=== PATIENT | male | born 1950 | race Caucasian/White ===

== ENCOUNTER → 2016-08-25 | Outpatient (CLI) | payer MEDICARE, MEDICAID ==
[~2016-08-25] MED LIST: /ADVA50050 INH; /MOXI40TA PO; OXYGEN; PRED10TA2 PO; PRED5TAB PO; SPIRIVA INH; VENTAER IN
--- NOTE | 2016-08-25 15:49 | REP ---
LOW DOSE HELICAL SCREENING LUNG CT: Low dose helical screening lung CT performed in the axial plane and compared to prior studies, most recent of which is 03/26/2015 as well as other prior exams dating back to 02/12/2012. There is diffuse interstitial fibrotic change which appears relatively stable. There are stable scattered nodular opacities. A nodular opacity in the superior segment of the right lower lobe measures 4 mm, another in the region of the right middle lobe measures 7 mm and another just inferior to that measures 4 mm, all unchanged. Two stable 8 mm nodular opacities in the left lower lobe are again visualized. No new nodules are seen. Heart is normal in size. No gross mediastinal abnormality is seen. IMPRESSION: Category [address] Bilateral stable nodular opacities. No new finding. Findings have remained stable since at least 02/06/2014. Signed by Elliott Gates MD 08/25/2016 04:42 P
== END ==
LOC: M RAD 14:04
PROVIDERS: ATTEND Internal Medicine Pulmonary Disease
DX: Z12.2 Encounter for screening for malignant neoplasm of respiratory organs (principal); J43.2 Centrilobular emphysema; R91.8 Other nonspecific abnormal finding of lung field; Z87.891 Personal history of nicotine dependence

== ENCOUNTER → 2017-10-26 | Outpatient (CLI) | payer OTHER, MEDICAID, MEDICARE | LOC: M RAD 11:19 | DX: Z12.2 Encounter for screening for malignant neoplasm of respiratory organs (principal); Z87.891 Personal history of nicotine dependence; R91.8 Other nonspecific abnormal finding of lung field; J43.9 Emphysema, unspecified | CPT/HCPCS: G0297 ==

== ENCOUNTER 2019-05-07 22:41 | Inpatient (IN) | payer MEDICARE, OTHER ==
[~2019-05-07] VITALS: Ht 165.1 cm; Wt 46.1 kg
[~2019-05-07 22:41] MED LIST changes: -/ADVA50050 INH; -/MOXI40TA PO; +ADVA1AER2 INH; +AVEL1TAB2 PO
[2019-05-07] MEDS ORDERED: GABA-843 PO (22:50)
[2019-05-07] MEDS ORDERED: ALEN10TA21 PO (22:50)
[2019-05-07] MEDS: IPRATROPIUM 0.5MG/ALBUTEROL 2.5MG INH SOL UD 3ML (DUONEB)(J7620) NEB PRN ×3 (22:57→23:12)
[2019-05-07 23:12] LABS: ABG HCO3 31.3 MEQ/L (22.0-26.0); ABG O2 SATURATION 98.6 % (95.0-99.0); ABG PARTIAL PRESSURE O2 146.6 mmHg (75.0-100.0); ABG STANDARD HCO3 25.4 MEQ/L (22.0-26.0); ABG TOTAL CO2 33.7 MEQ/L (23.0-31.0)
[2019-05-07 23:15] LABS: ABG pH (ARTERIAL) 7.227 UNITS (7.350-7.450)
[2019-05-07 23:16] LABS: BASO # 0.2 10^3/uL (0.0-0.2); BASO % 0.7 % (0.0-1.0); EOS % 0.1 % (0.0-3.0); HEMATOCRIT 49.6 % (42.0-52.0); HEMOGLOBIN 15.3 g/dl (13.5-17.5); LYMPH # 1.2 10^3/uL (1.5-5.0); LYMPH % 4.5 % (24.0-44.0); MEAN CORPUSCULAR HEMOGLOBIN 29.7 pg (27.0-33.0); MEAN CORPUSCULAR HGB CONC 30.8 g/dl (32.0-36.5); MEAN CORPUSCULAR VOLUME 96.1 fl (80.0-96.0); MONO # 0.8 10^3/uL (0.0-0.8); MONO % 3.1 % (0.0-5.0); PLATELET COUNT, AUTOMATED 450 10^3/uL (150-450); RED BLOOD COUNT 5.16 10^6/uL (4.30-6.10); WHITE BLOOD COUNT 26.3 10^3/uL (4.0-10.0)
[2019-05-07] MEDS ORDERED: VENTAER INH (23:38)
[2019-05-07] MEDS ORDERED: INCR1INH INH (23:41)
[2019-05-07] MEDS ORDERED: SYMB16INH INH (23:41)
[2019-05-08] VITALS (17 sets, daily range): BP systolic 90–173; BP diastolic 52–89; O2SAT 100
[2019-05-08 00:02] LABS: BLOOD UREA NITROGEN 17 MG/DL (7-18); CALCIUM LEVEL 9.3 MG/DL (8.8-10.2); CARBON DIOXIDE LEVEL 35 MEQ/L (21-32); CHLORIDE LEVEL 102 MEQ/L (98-107); CK-MB VALUE MASS 7.3 NG/ML (<3.6); CPK CREATINE PHOSPHOKINASE 246 U/L (39-308); CREATININE FOR GFR 1.22 MG/DL (0.70-1.30); GLOMERULAR FILTRATION RATE > 60.0 (>49); GLUCOSE, FASTING 163 MG/DL (70-100); MB/CK RELATIVE INDEX 2.97 (< OR =4); NT-PRO BNP 87 PG/ML (<125); POTASSIUM SERUM 5.1 MEQ/L (3.5-5.1); SODIUM LEVEL 142 MEQ/L (136-145); TROPONIN I 0.02 NG/ML (< 0.10)
--- NOTE | 2019-05-08 00:10 | REPVR ---
PROCEDURE INFORMATION: Exam: CT Chest Without Contrast Exam date and time: 05/07/2019 11:47 PM Age: 68 years old Clinical history: Condition or disease; Lung condition and disease; Pneumothorax; Additional info: Left ptx TECHNIQUE: Imaging protocol: Computed tomography of the chest without contrast. 3D rendering: MIP reconstructed images were created and reviewed. Radiation optimization: All CT scans at this facility use at least one of these dose optimization techniques: automated exposure control; mA and/or kV adjustment per patient size (includes targeted exams where dose is matched to clinical indication); or iterative reconstruction. COMPARISON: CR PORTABLE CHEST X-RAY 05/07/2019 10:51 PM FINDINGS: Moderate left pneumothorax is present occupying perhaps 50% of left hemithorax volume, without significant mediastinal shift. No pleural fluid. Underlying diffuse severe emphysema. Pattern is centrilobular. No mass, infiltrate or endobronchial process. No enlarged mediastinal lymph nodes and no dilatation of the thoracic aorta. No acute displaced fractures involving ribs, thoracic spine or shoulder girdle. Old, healed left rib fractures are present. IMPRESSION: Confirmation of a large left pneumothorax occupying perhaps 50% of left hemithorax volume without evidence of significant mediastinal shift. Severe underlying diffuse lung emphysema Electronically signed by: rCuz Jalloh On 05/08/2019 00:10:26 AM
[2019-05-08] MEDS ORDERED: LIDOCAINE 1% MDV 20ML VIAL As Ordered ONE (00:28)
[2019-05-08] MEDS ORDERED: AZITHROMYCIN INJ 500 MG, VIAL MATE ADAPTER 1 EACH in D5W 250 ML IV ONE (01:15)
[2019-05-08] MEDS ORDERED: NS 1,000 ML IV SCH (01:15)
[2019-05-08] MEDS: IPRATROPIUM 0.5MG/ALBUTEROL 2.5MG INH SOL UD 3ML (DUONEB)(J7620) NEB SCH ×8 (01:20→19:46)
[2019-05-08] MEDS ORDERED: TIOT18INH INH (02:32)
[2019-05-08] MEDS: KETOROLAC 30 MG/ML VIAL (J1885) IV PRN ×2 (03:12→13:14)
[2019-05-08] MEDS: NS 1,000 ML IV SCH ×3 (03:12→18:48)
[2019-05-08] MEDS: methylPREDNISolone INJ 125 MG/2 ML VIAL (J2930) IV SCH ×4 (03:12→20:12)
[2019-05-08 03:16] LABS: ABG BASE EXCESS 0.4 (-2.0-2.0); ABG HCO3 26.7 MEQ/L (22.0-26.0); ABG O2 SATURATION 99.2 % (95.0-99.0); ABG PARTIAL PRESSURE CO2 49.2 mmHg (35.0-45.0); ABG PARTIAL PRESSURE O2 159.5 mmHg (75.0-100.0); ABG STANDARD HCO3 24.9 MEQ/L (22.0-26.0); ABG TOTAL CO2 28.2 MEQ/L (23.0-31.0); ABG pH (ARTERIAL) 7.352 UNITS (7.350-7.450)
--- NOTE | 2019-05-08 06:39 | RO ---
DATE OF PROCEDURE: 05/08/2019 Chest tube insertion note INDICATION: Pneumothorax. PREPROCEDURE DIAGNOSIS: Pneumothorax on the left. POSTPROCEDURE DIAGNOSIS: Pneumothorax on the left. ATTENDING PHYSICIAN: Dr. Francois CONSENT: Consent was obtained from the patient. Risk and benefits were discussed. A time out was performed prior to procedure, verifying correct patient, procedure site, positioning and equipment. The patient was sitting bed in the stretcher with the left side of his chest exposed. Full sterile technique was maintained throughout procedure including sterile glove, cap, mask with protective eyewear and sterile gown. The patient's left chest was prepped using chlorhexidine scrub and draped with a sterile fenestrated drape. 1% lidocaine was used to anesthetize the surrounding skin area. An introducer needle was placed into the chest wall just superior to the rib in the fifth intercostal space. There was air aspirated after placement of the introducer needle. A Guidewire was then threaded through the introducer needle. The introducer needle was removed over the Guidewire and a scalpel was used to make an incision at the skin surface and the dilator was then exchanged over the Guidewire. After appropriate dilation was achieved, the chest tube with the trocar was inserted into the chest. The chest tube was exchanged over the Guidewire and the Guidewire and trocar was removed. The chest tube was then connected to the Pleur-evac with notable air bubbling in the Pleur-evac and tidaling. The chest tube was sutured securely to the skin and Vaseline gauze was placed around this chest tube site and a sterile dressing was applied to it. At the time of procedure completion, the patient was hemodynamically stable. Estimated blood loss was less than 1 mL. Postprocedure chest x-ray was obtained.
--- NOTE | 2019-05-08 06:47 | HPE ---
DATE OF ADMISSION: 05/08/2019 CHIEF COMPLAINT: Hypercapnic respiratory failure pneumothorax. HISTORY OF PRESENT ILLNESS: Mr. 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 The patient was noted to be significantly tachypneic and using accessory muscles, was unable to speak in even short phrases. History was somewhat limited as the patient was in respiratory distress and unable to speak even in short phrases. He has had some increasing shortness of breath for the past few days as well as increased cough and some sputum production. He denied any chest pain. He denied any fevers or chills and no sick contacts. He was placed on BiPAP on transfer to the ED and was treated with steroids and nebulizer treatment by EMS. In the ED, the patient was given another dose of nebulizer treatment and was continued on BiPAP. He was tachycardic as well on presentation. He had imaging done initially with a chest x-ray, which showed emphysematous changes and hyperinflation as well as a pneumothorax on the left side more so in the base of the lung. He therefore had a CT chest done, which also confirmed the presence of a large left-sided pneumothorax. The patient was on in place on a non-rebreather pending my arrival to the ED given pneumothorax. On my arrival to the ED, the patient was significantly tachypneic with a respiratory rate in the 30s. He was using accessory muscles for respiration and abdominal breathing as well as tachycardic to heart rate of 140 and hypertensive with blood pressures in the one 80s. A the left-sided chest tube was placed then for his pneumothorax with normal air and bubbling after placement. Immediately after placement, his heart rate did improve and his tachypnea and respiratory distress also improved. Please see procedure note for further details. PAST MEDICAL/SURGICAL HISTORY: 1. COPD/emphysema GOLD stage IV. 2. Chronic back pain. 3. History of alcohol use. 4. History of tobacco dependency, quit in 2013. 5. Cataract surgery. 6. Prior history of lumbar surgery. 7. Left inguinal hernia repair. 8. History of pulmonary nodules all stable after surveillance. HOME MEDICATIONS INCLUDE: - Incruse - Symbicort - Ventolin DRUG ALLERGIES: No known drug allergies. SOCIAL HISTORY: Former smoker, history of 46-pack years, quit in 2014. FAMILY HISTORY: Father with history of heart disease. No family history of lung disease. PHYSICAL EXAMINATION: VITALS: Temperature 98.2, pulse 141, respiratory rate 30s, blood pressure 181/84, O2 sat 95% on non-rebreather. GENERAL: The patient is a cachectic male who is lying in the stretcher in moderate respiratory distress. Is using accessory muscles of respiration and is unable to speak in short phrases. HEENT: His he has dry mucous membranes noted, with some poor oral hygiene. There are dentures in place. NECK: Trachea is midline. There is no jugular venous distention (JVD) and no palpable adenopathy. CARDIAC: Distant heart sounds with a tachycardiac rate and a regular rhythm with normal S1, S2 and unable to appreciate murmurs. PULMONARY: Severely diminished breath sounds, more on the left than on the right with prolonged expiration and decreased air entry bilaterally. ABDOMEN: Abdomen is soft, nontender, nondistended. No palpable mass. EXTREMITIES: There is no lower extremity edema bilaterally. There is evidence of muscle wasting and pulmonary cachexia. LABS: WBC 26.3, hemoglobin 15.3, platelets 450. Chemistry: Sodium is 142, potassium 5.1, chloride is 102, bicarb 35, BUN 17, creatinine is 1.22, glucose is 163, troponin was negative. BNP 87, TSH 1.440, lactic acid is 1.0. ABG on admission: pH of 7.227, pCO2 of 77, pO2 of 146.6. IMAGING: Chest x-ray on admission shows emphysematous changes and some hyperinflation. On the left base, there is a pneumothorax present. There are no focal opacities or effusions. The patient is somewhat rotated. CT chest: Previously known emphysema and is seen as well as previously seen lung nodules. There is a moderate pneumothorax on the left size occupying perhaps 50% of the left hemithorax with possible very slight mediastinal shift. There is no pleural effusion. There is no infiltrates or opacities noted. ASSESSMENT/PLAN: Mr. Singh is a 68-year-old male with a history of the GOLD stage IV COPD with severe emphysema on nasal cannula oxygen supplementation at night and with exertion who presents with increasing shortness of breath and respiratory distress. The patient's initial chest x-ray showed evidence of a moderate left pneumothorax and he was in significant respiratory distress as well as with acute on chronic hypercarbic respiratory failure likely secondary to his pneumothorax as well as an acute COPD exacerbation. 1. Left pneumothorax in the setting of severe emphysema: The patient had a chest tube placed by me emergently in the ED on the left side with immediate drainage of air. There is bubbling in the Pleur-Evac and tidaling as well. Postprocedure chest x-ray shows re-expansion of the lung. Will continue him with a chest tube to wall suction particularly as he is still on BiPAP with the potential of the positive pressure to contribute to persistence in his the pneumothorax and air leak. - Will get daily chest x-rays with the chest tube. - Pain control with Tylenol and Toradol as needed. 2. Acute COPD exacerbation with acute on chronic hypercarbic respiratory failure. - The patient was placed on BiPAP and his settings were adjusted in the ED to 10/5 with a respiratory rate of 12 and a 30% FiO2. Will followup repeat ABG after 1 hour on BiPAP. His respiratory distress appears to be improving after the chest tube placement and on BiPAP. - Continue with DuoNebs every 4 hours and will start Solu-Medrol at 60 mg IV every 6h. - The patient was previously on Symbicort and Incruse for home inhalers which he will need to be restarted prior to his discharge. - Will continue with azithromycin for acute COPD exacerbation. His chest CT did not show any focal opacities or infiltrates to suggest pneumonia but will perform a respiratory viral panel. - The patient did have leukocytosis on admission and which may also be partially hemoconcentration. Will give him normal saline fluids and continue to monitor. His tachycardia may also be due to some mild dehydration. Deep venous thrombosis (DVT) prophylaxis: Lovenox CODE STATUS: The patient follows with Dr. Torres and our pulmonary office. She had seen him in June and they had discussed the goals of care extensively and the patient had filled out a medical orders for life-sustaining treatment (MOLST) in our office stating his preference for a DO NOT RESUSCITATE and DO NOT INTUBATE with a trial of BiPAP. He had stated during his office visit, that if possible he would get the DNR/DNI tattooed on his forehead. I confirmed with him today in the ED that he is a DNR and DNI for his code status. Total critical care time spent not including any procedures approximately 2 hours. AMANDA
--- NOTE | 2019-05-08 08:15 | REP ---
Portable chest x-ray: Single view, 01:13 a.m. film. History: Chest tube placement. Pneumothorax. Comparison study 05/07/2019 at 10:55 p.m.. Findings: A left pleural drainage catheter is noted in place. A left-sided pneumothorax has been evacuated. The lungs remain hyperinflated as before consistent with COPD. Oxygen delivery tubing and EKG electrodes are seen. No focal infiltrate is seen. Heart is not enlarged. Electronically Signed by Jhon Wilson MD 05/08/2019 08:06 A
[2019-05-08] MEDS: ENOXAPARIN 30 MG/0.3 ML SYR (J1650) SC SCH (08:33)
--- NOTE | 2019-05-08 08:34 | REP ---
Portable chest x-ray: Two views. 10:55 p.m. film. History: Dyspnea and cough. Comparison study is chest CT study from October 26, 2017. Findings: The patient is rotated to the right for the current exposure. Lungs are markedly hyperinflated consistent with COPD as before. There is a left-sided pneumothorax visible along the left superior lateral and lower lateral chest wall, probably 25-30%. There appears to be shift of the mediastinum to the right although the patient is rotated somewhat and this is difficult to assess. No infiltrate is seen. The right lung is clear. The heart is not enlarged. There are healed or healing rib fractures noted on the left. There is diffuse osteopenia. Impression: 25-30% left-sided pneumothorax. COPD. Possible shift of the mediastinum to the right. Electronically Signed by Jhon Wilson MD 05/08/2019 08:46 A
[2019-05-08 09:20] LABS: BASO % 0.1 % (0.0-1.0); HEMATOCRIT 40.4 % (42.0-52.0); LYMPH # 0.3 10^3/uL (1.5-5.0); LYMPH % 1.8 % (24.0-44.0); MEAN CORPUSCULAR HEMOGLOBIN 29.8 pg (27.0-33.0); MEAN CORPUSCULAR HGB CONC 31.7 g/dl (32.0-36.5); MONO # 0.1 10^3/uL (0.0-0.8); MONO % 0.5 % (0.0-5.0); NEUTROPHILS # 16.4 10^3/uL (1.5-8.5); WHITE BLOOD COUNT 16.9 10^3/uL (4.0-10.0)
[2019-05-08 09:35] LABS: HEMOGLOBIN 12.8 g/dl (13.5-17.5)
[2019-05-08 09:36] LABS: PLATELET COUNT, AUTOMATED 264 10^3/uL (150-450)
[2019-05-08 09:51] LABS: BLOOD UREA NITROGEN 26 MG/DL (7-18); CALCIUM LEVEL 8.9 MG/DL (8.8-10.2); CARBON DIOXIDE LEVEL 28 MEQ/L (21-32); CHLORIDE LEVEL 107 MEQ/L (98-107); CREATININE FOR GFR 1.18 MG/DL (0.70-1.30); GLOMERULAR FILTRATION RATE > 60.0 (>49); GLUCOSE, FASTING 147 MG/DL (70-100); POTASSIUM SERUM 4.9 MEQ/L (3.5-5.1); SODIUM LEVEL 141 MEQ/L (136-145)
[2019-05-08] MEDS: AZITHROMYCIN INJ 500 MG, VIAL MATE ADAPTER 1 EACH in D5W 250 ML IV SCH (20:12)
[2019-05-09] VITALS (11 sets, daily range): BP systolic 135–181; BP diastolic 65–97; O2SAT 100
[2019-05-09] MEDS: IPRATROPIUM 0.5MG/ALBUTEROL 2.5MG INH SOL UD 3ML (DUONEB)(J7620) NEB SCH ×7 (00:14→23:36)
[2019-05-09] MEDS: methylPREDNISolone INJ 125 MG/2 ML VIAL (J2930) IV SCH ×2 (02:33→08:32)
[2019-05-09 05:40] LABS: HEMATOCRIT 37.9 % (42.0-52.0); HEMOGLOBIN 12.1 g/dl (13.5-17.5); MEAN CORPUSCULAR HEMOGLOBIN 29.8 pg (27.0-33.0); MEAN CORPUSCULAR HGB CONC 31.9 g/dl (32.0-36.5); MEAN CORPUSCULAR VOLUME 93.3 fl (80.0-96.0); PLATELET COUNT, AUTOMATED 265 10^3/uL (150-450); RED BLOOD COUNT 4.06 10^6/uL (4.30-6.10); WHITE BLOOD COUNT 19.9 10^3/uL (4.0-10.0)
[2019-05-09 05:51] LABS: ABG BASE EXCESS 1.8 (-2.0-2.0); ABG HCO3 26.5 MEQ/L (22.0-26.0); ABG O2 SATURATION 97.2 % (95.0-99.0); ABG PARTIAL PRESSURE O2 91.1 mmHg (75.0-100.0); ABG TOTAL CO2 27.8 MEQ/L (23.0-31.0); ABG pH (ARTERIAL) 7.418 UNITS (7.350-7.450)
[2019-05-09 06:12] LABS: BLOOD UREA NITROGEN 23 MG/DL (7-18); CALCIUM LEVEL 8.4 MG/DL (8.8-10.2); CARBON DIOXIDE LEVEL 30 MEQ/L (21-32); CHLORIDE LEVEL 107 MEQ/L (98-107); GLOMERULAR FILTRATION RATE > 60.0 (>49); GLUCOSE, FASTING 119 MG/DL (70-100); MAGNESIUM LEVEL 2.2 MG/DL (1.8-2.4); PHOSPHORUS LEVEL 1.9 MG/DL (2.5-4.9); POTASSIUM SERUM 4.5 MEQ/L (3.5-5.1); SODIUM LEVEL 141 MEQ/L (136-145)
[2019-05-09] MEDS: KETOROLAC 30 MG/ML VIAL (J1885) IV PRN ×2 (07:25→16:25)
--- NOTE | 2019-05-09 08:17 | REP ---
Portable chest x-ray: Single view. History: Chest tube. Comparison chest x-ray: May 08, 2019. Findings: A left pleural drainage catheter remains in place along the left lateral chest. There is a small amount of left apical pleural air visible today above the chest tube. Lungs are otherwise hyperinflated as before and clear. Electronically Signed by Jhon Wilson MD 05/09/2019 08:08 A
[2019-05-09] MEDS: ENOXAPARIN 30 MG/0.3 ML SYR (J1650) SC SCH (08:33)
--- NOTE | 2019-05-09 10:37 | CCN ---
DATE: 05/09/2019 The patient was seen, examined this morning during bedside rounds. The patient reports his breathing has improved. Yesterday in the late morning, he was able to be weaned off of BiPAP to nasal cannula oxygen supplementation. He had done well for most of the day, except late overnight, he started having increasing shortness of breath, tachypnea and tachycardia and was placed back on BiPAP until this morning when he was weaned off again to nasal cannula. He does continue to have some cough and reports some thick mucus that he is having difficulty expectorating. He denies any chest pain. Has not had any fevers or chills. PHYSICAL EXAMINATION: Temperature 99.1, pulse 85, respirations 22, blood pressure 135/65, O2 sat 97% on 1 liter nasal cannula. Ins 250, outs 945, net negative 695 mL GENERAL: The patient is a cachectic male who is lying in the bed and is using some mild accessory muscles for respiration with pursed-lip breathing but is able to speak in more complete sentences today. HEENT: Normocephalic, atraumatic. Moist mucous membranes. He has dentures in place and poor oral hygiene. NECK: Trachea is midline. There is no jugular venous distention (JVD) or palpable adenopathy. CARDIAC: Distant heart sounds regular rate and rhythm. Normal S1, S2. Unable to appreciate murmurs. PULMONARY: Diminished breath sounds bilaterally with prolonged expiration but no significant wheezing, rales or rhonchi. ABDOMEN: Abdomen is soft, nontender, nondistended. No palpable mass. EXTREMITIES: There is no lower extremity edema bilaterally. There is some evidence of muscle wasting and pulmonary cachexia. LABS: WBC 19.9, hemoglobin. 0.1, platelets of 265. Chemistry: Sodium is 1.1, potassium 4.5, chloride is 107, bicarb 30, BUN 23, creatinine 0.90, glucose is 119, phos 1.9, magnesium 2.2. ABG: pH of 7.418, pCO2 of 42, pO2 of 91.1. IMAGING: Chest x-ray this morning shows a tiny residual apical pneumothorax on the left. The left sided chest tube is in position coursing laterally along the lung. There is small amount of subcutaneous emphysema noted in the chest wall on the left, which is improved from yesterday. ASSESSMENT/PLAN: Mr. Francisco is a 68-year-old male with a past medical history of GOLD stage IV Chronic obstructive pulmonary disease (COPD) with severe emphysema on nasal cannula oxygen supplementation at night with exertion who presented with increased shortness of breath and respiratory distress. The patient was found have moderate left pneumothorax as well as acute on chronic hypercarbic respiratory failure likely secondary to his pneumothorax as well as from an acute COPD exacerbation. 1. Left pneumothorax in setting of emphysema and likely some coughing. - The patient's chest x-ray this morning does show some very small residual left apical pneumothorax. On the Pleur-Evac he does have a few bubbles noted in the well although this has slowed down from previous. - Continue chest tube to wall suction at negative 30 cm H2O. - Continue daily chest x-rays with the chest tube. - Continue pain control with Tylenol and Toradol as needed. - Will attempt to keep patient off of BiPAP to help with his air leak and persistent pneumothorax. 2. Acute COPD exacerbation with acute on chronic hypercarbic respiratory failure. - The patient's ABG this morning shows improvement. He was off of BiPAP for most of the day although overnight he did have increased respiratory distress and tachypnea and was placed back on BiPAP. - Will attempt to keep patient off BiPAP given his a persistent pneumothorax. He does have BiPAP at the bedside with settings of 10 over 5,12 and 30% FiO2. - Continue with DuoNebs every 4 hours. - Continue Solu-Medrol will taper to 40 mg every 8 hours. - Will start Mucinex to help with his mucus clearance. - Continue azithromycin for acute COPD exacerbation. His CT chest did not show any focal opacities or infiltrates to suggest pneumonia. His respiratory viral panel was negative. - Will discontinue (DC) IV fluids as he is tolerating oral. 3. Urinary retention - patient was complaining of some urinary retention yesterday and a Holley was placed. Will get the patient out-of-bed to chair and will DC Holley based on our protocol. - Will continue to monitor his ins and outs. - Will replete electrolytes as needed. Deep venous thrombosis (DVT) prophylaxis: Lovenox. Code Status: DO NOT RESUSCITATE /DO NOT INTUBATE. Total critical care time spent not including procedures, approximately 40 minutes. MTDD
[2019-05-09] MEDS: guaiFENesin ER 600 MG TAB PO SCH ×2 (11:00→20:49)
[2019-05-09] MEDS: NEUTRA-PHOS 1.5 GM PACKET PO SCH ×2 (11:00→20:49)
[2019-05-09] MEDS: methylPREDNISolone INJ 40 MG/1 ML VIAL (J2920) IV SCH (16:25)
[2019-05-09] MEDS: AZITHROMYCIN INJ 500 MG, VIAL MATE ADAPTER 1 EACH in D5W 250 ML IV SCH (20:50)
--- NOTE | 2019-05-09 21:51 | ECGEPIP ---
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
[2019-05-10] VITALS: BP 138/79
[2019-05-10] MEDS: methylPREDNISolone INJ 40 MG/1 ML VIAL (J2920) IV SCH ×3 (00:15→17:31)
[2019-05-10 04:30] VITALS: BP 174/93
[2019-05-10] MEDS: IPRATROPIUM 0.5MG/ALBUTEROL 2.5MG INH SOL UD 3ML (DUONEB)(J7620) NEB SCH ×6 (04:35→23:32)
[2019-05-10 07:40] LABS: HEMATOCRIT 42.4 % (42.0-52.0); HEMOGLOBIN 13.7 g/dl (13.5-17.5); MEAN CORPUSCULAR HEMOGLOBIN 29.8 pg (27.0-33.0); MEAN CORPUSCULAR HGB CONC 32.3 g/dl (32.0-36.5); MEAN CORPUSCULAR VOLUME 92.2 fl (80.0-96.0); PLATELET COUNT, AUTOMATED 284 10^3/uL (150-450); WHITE BLOOD COUNT 22.8 10^3/uL (4.0-10.0)
[2019-05-10 08:00] VITALS: BP 163/81
[2019-05-10 08:00] LABS: BLOOD UREA NITROGEN 22 MG/DL (7-18); CALCIUM LEVEL 8.7 MG/DL (8.8-10.2); CARBON DIOXIDE LEVEL 31 MEQ/L (21-32); CHLORIDE LEVEL 103 MEQ/L (98-107); GLOMERULAR FILTRATION RATE > 60.0 (>49); GLUCOSE, FASTING 121 MG/DL (70-100); MAGNESIUM LEVEL 2.3 MG/DL (1.8-2.4); SODIUM LEVEL 138 MEQ/L (136-145)
--- NOTE | 2019-05-10 08:03 | REP ---
Portable chest x-ray: Single view. History: Chest tube. Comparison chest x-ray: May 09, 2019. Findings: The lungs remain hyperinflated. Left chest tube remains in place. There is a small left apical pleural air collection unchanged. Minimal plate-like atelectasis is suspected in the right base. Lung park are otherwise clear. Heart is not enlarged. Electronically Signed by Jhon Wilson MD 05/10/2019 07:54 A
--- NOTE | 2019-05-10 09:09 | IPN ---
DATE: 05/10/2019 He patient was seen and examined this morning during bedside rounds. Overnight, the patient was off of BiPap except for two brief episodes lasting a few minutes when he desatted with getting out of bed and with positioning. The patient also had become tachycardiac and mildly tachypneic during these episodes. He was only on BiPap for a few minutes before coming off to his nasal cannula. His heart rate did take some time to recover. This morning, he reports his breathing is mostly unchanged. He does still have some shortness of breath particularly with exertion. He denies any chest pain. He does continue to have some cough with thick mucus which he was able to bring some of it up overnight. He has not had any fevers or chills. PHYSICAL EXAMINATION: Temperature is 97.9, pulse 83, respirations 22, blood pressure 174/93, O2 sat 97% on 1 liter nasal cannula. Ins 945 mL and out approximately 2 liters, net negative 1.1 liters. General: The patient is a cachectic male who is lying in bed and is using some accessory muscles for respiration with pursed-lip breathing, but is able to speak in short sentences. HEENT: He is normocephalic, atraumatic. There is moist mucous membranes. He has dentures in place and poor oral hygiene. Neck: Trachea is midline. There is no jugular venous distention (JVD) or palpable adenopathy. Cardiac: Distant heart sounds, regular rate and rhythm. Normal S1 and S2. Unable appreciate murmurs. Pulmonary: Diminished breath sounds bilaterally with prolonged expiration and faint wheeze with forceful exhalation. No significant rales or rhonchi. The abdomen is soft, nontender, nondistended. There is no palpable mass. Extremities: There is no lower extremity noted bilaterally. There is evidence of muscle wasting and pulmonary cachexia. LABORATORY DATA: WBC 22.8, hemoglobin 13.7, platelets 284. Chemistry: Sodium is 138, potassium 4.0, chloride is 103, bicarbonate 31, BUN is 22, creatinine is 0.9, glucose is 121. IMAGING: Chest x-ray this morning shows continued residual small apical pneumothorax on the left. The left sided chest tube is in position. There is some mild atelectasis in the right base. ASSESSMENT: Mr. Singh is a 68-year-old male with a history of Gold stage IV COPD with severe emphysema on nasal cannula oxygen supplementation nocturnally and with exertion who presented with increased shortness breath and respiratory distress. The patient was found have moderate left pneumothorax as well as acute hypercarbic respiratory failure likely secondary to his pneumothorax as well as from an acute COPD exacerbation. 1. Left pneumothorax in the setting of emphysema and COPD exacerbation. - The patient continues to have some bubbling noted on the Pleur-Evac and his chest x-ray continues to show a small residual left apical pneumothorax. - Will continue chest tube to wall suction at negative 30 cm. - Continue daily chest x-rays with the chest tube. - Continue pain control with Tylenol and Toradol as needed - Will continue to monitor his pneumothorax and air leak, but suspect he will have a long time healing given his severe underlying lung disease. 2. Acute COPD exacerbation with acute hypercarbic respiratory failure. - The patient was off of BiPap overnight except for two brief episodes where he desatted with positioning and was placed on BiPap for a few minutes. Will therefore discontinue his BiPap and continue the patient with nasal cannula oxygen supplementation and would have parameters to increase the nasal cannula oxygen if he desats with exertion, which he most likely will. - Continue with DuoNebs q. four. - Continue Solu-Medrol 40 mg q.8 hours. - Continue Mucinex and pulmonary toilet. - Continue azithromycin to complete a 5-day course for acute COPD exacerbation. His leukocytosis is likely reactive with the steroids as he has continued to remain afebrile. - Will continue to advance his diet and start Ensure given his pulmonary cachexia. 3. Urinary attention. - likely BPH given history he reports of urinary stream hesitancy and difficulty with urination. will attempt to DC clement for voiding trial today. Monitor for retention again. - Continue to monitor electrolytes and replete as needed. DEEP VEIN THROMBOSIS (DV) PROPHYLAXIS: Lovenox. CODE STATUS: DO NOT RESUSCITATE/DO NOT INTUBATE (DNR/DNI). Will downgrade the patient to progressive care unit (PCU). AMANDA
[2019-05-10] MEDS: NEUTRA-PHOS 1.5 GM PACKET PO SCH ×2 (09:27→20:23)
[2019-05-10] MEDS: ENOXAPARIN 30 MG/0.3 ML SYR (J1650) SC SCH (09:27)
[2019-05-10] MEDS: guaiFENesin ER 600 MG TAB PO SCH ×2 (09:27→20:22)
[2019-05-10] MEDS: KETOROLAC 30 MG/ML VIAL (J1885) IV PRN (11:16)
[2019-05-10 12:00] VITALS: BP 163/91
[2019-05-10 16:00] VITALS: BP 159/87
--- NOTE | 2019-05-10 17:51 | IPNPDOC ---
Subjective Date Seen The patient was seen on 05/10/19. Subjective Chief Complaint/HPI Complains of SOB and which is chronic and not any worse than usual at present. It is better compared to when he was admitted. Has chest tube in place with ongoing air leak. Had acute urinary retention in hospital so has a clement will try for a trial of void today. Objective Physical Examination General Exam: Positive: Alert, Cooperative, Moderate Distress, Other (cachextic, has conversational dyspnea.) Eye Exam: Positive: PERRLA, Conjunctiva & lids normal, EOMI; Negative: Sclera icteric Neck Exam: Positive: Supple; Negative: JVD, thyromegaly Chest Exam: Positive: Diminished, Other (barell chest) Heart Exam: Positive: Tachycardic, Regular Rhythm, Normal S1, Normal S2 Telemetry: Positive: No significant arrhythmia Abdomen Exam: Positive: Normal bowel sounds, Soft; Negative: Tenderness, Hepatospenomegaly Extremity Exam: Negative: Clubbing, Cyanosis, Edema Psych Exam: Positive: Mental status NL, Mood NL, Oriented x 3 Assessment /Plan Assessment 68-year-old male with a history of 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 CT chest showed previously known emphysema and is seen as well as previously seen lung nodules. There was a moderate pneumothorax on the left size occupying perhaps 50% of the left hemithorax with possible very slight media stinal shift. Pateint was also in acute respiratory failure with hypercarbia with copd exacerbation. pateint had a Chest tube placed urgently with relief of the pneumothorax on 05/08. However till continues to leak air. His Acute repiratory failure has resolved. However still remains extremely SOb with minimal exertion with tachycardia and desaturations needing prolonged period of increased oxygen flow to recover. As per pulmonary that probably is his baseline with his advanced COPD. Left Pneumothorax s/p chest tube placement on 05/08 with persistent air leak As per pulmonary COPD exacerbation COPD/emphysema GOLD stage IV. continue duonebs and budesonide and methyl pred and azithromycin S/P Acute respiratory failure with hypercarbia due to pneumothorax and COPD exacerbation now improved. Acute urinary retention in hospital has clement will give trial of void Chronic back pain/Prior history of lumbar surgery will restart gabapentin at lower dose due to recent acute hypercarbia. History of alcohol use. history of tobacco dependency, quit in 2013. Severe malnutrition /pulmonary cachexia with severe muscle wasting and BMI of 17.6 Plan/VTE VTE Prophylaxis Ordered?: Yes VS, I&O, 24H, Fishbone Vital Signs/I&O Vital Signs Date Time Temp Pulse Resp B/P (MAP) Pulse Ox O2 Delivery O2 Flow Rate FiO2 05/10/19 16:00 3.0 05/10/19 12:00 97.9 110 22 163/91 (115) 99 Nasal Cannula 05/09/19 02:00 30 I&O- Last 24 Hours up to 6 AM 05/10/19 06:00 Intake Total 755 ml Output Total 1570 ml Balance -815 ml Laboratory Data 24H LABS Laboratory Tests 2 05/10/19 07:28: Nucleated Red Blood Cells % (auto) 0.0, Anion Gap 4L, Glomerular Filtration Rate > 60.0, Calcium Level 8.7L, Magnesium Level 2.3 CBC/BMP Laboratory Tests 05/10/19 07:28 Microbiology Microbiology 05/08/19 Respiratory Virus Panel (PCR) ([facility]) - Final, Complete 05/07/19 Blood Culture - Preliminary, Resulted No Growth after 48 hours. All Specime... 05/07/19 Blood Culture - Preliminary, Resulted No Growth after 48 hours. All Specime... LIDIA AGUIRRE MD May 10, 2019 17:51
[2019-05-10] MEDS: BUDESONIDE 0.5 MG/2 ML INHALATION SUSPENSION INH SCH (19:55)
[2019-05-10 20:00] VITALS: BP 183/86
[2019-05-10] MEDS: amLODIPine 5 MG TAB PO SCH (20:22)
[2019-05-10] MEDS: GABAPENTIN 100 MG CAP PO SCH (20:22)
[2019-05-10] MEDS: AZITHROMYCIN 250 MG TAB PO SCH (20:23)
[2019-05-10] MEDS ORDERED: GABAPENTIN 300 MG CAP PO SCH (21:00)
[2019-05-11] VITALS: BP 120/67
[2019-05-11] MEDS: methylPREDNISolone INJ 40 MG/1 ML VIAL (J2920) IV SCH ×3 (01:20→20:43)
[2019-05-11] MEDS: IPRATROPIUM 0.5MG/ALBUTEROL 2.5MG INH SOL UD 3ML (DUONEB)(J7620) NEB SCH ×5 (04:00→20:00)
[2019-05-11 06:01] LABS: BLOOD UREA NITROGEN 32 MG/DL (7-18); CALCIUM LEVEL 8.2 MG/DL (8.8-10.2); CARBON DIOXIDE LEVEL 35 MEQ/L (21-32); CHLORIDE LEVEL 103 MEQ/L (98-107); CREATININE FOR GFR 0.74 MG/DL (0.70-1.30); GLOMERULAR FILTRATION RATE > 60.0 (>49); GLUCOSE, FASTING 108 MG/DL (70-100); HEMATOCRIT 43.7 % (42.0-52.0); HEMOGLOBIN 14.4 g/dl (13.5-17.5); MEAN CORPUSCULAR HEMOGLOBIN 30.3 pg (27.0-33.0); MEAN CORPUSCULAR VOLUME 91.8 fl (80.0-96.0); PLATELET COUNT, AUTOMATED 279 10^3/uL (150-450); POTASSIUM SERUM 4.3 MEQ/L (3.5-5.1); RED BLOOD COUNT 4.76 10^6/uL (4.30-6.10); SODIUM LEVEL 139 MEQ/L (136-145); WHITE BLOOD COUNT 25.1 10^3/uL (4.0-10.0)
--- NOTE | 2019-05-11 08:00 | REP ---
Chest x-ray: Single view. History: Chest tube. Comparison study: May 10, 2019. Findings: The lungs are hyperinflated. The patient is somewhat rotated to the right. Left pleural drainage catheter is again seen in place. There is a tiny sliver of left apical pleural air decreased from yesterday's radiograph. Hyperinflation is again noted. Increased interstitial markings are seen at the right lung base. Electronically Signed by Jhon Wilson MD 05/11/2019 07:51 A
[2019-05-11 08:07] VITALS: BP 165/86
[2019-05-11] MEDS: BUDESONIDE 0.5 MG/2 ML INHALATION SUSPENSION INH SCH ×2 (08:27→20:00)
[2019-05-11] MEDS: guaiFENesin ER 600 MG TAB PO SCH ×2 (09:23→20:43)
[2019-05-11] MEDS: GABAPENTIN 100 MG CAP PO SCH ×3 (09:23→20:43)
[2019-05-11] MEDS: ENOXAPARIN 30 MG/0.3 ML SYR (J1650) SC SCH (09:23)
--- NOTE | 2019-05-11 10:46 | REP ---
CT CHEST WITHOUT IV CONTRAST: CT chest performed without IV contrast. Sagittal and coronal reconstruction images are performed. Comparison is made with a prior study 05/07/2019. Left pleural catheter is seen. There is a very small residual left apical pneumothorax. Subcentimeter nodular density in the left upper lobe on image 28 is of doubtful significance. Subcentimeter nodular density peripherally in the left lower lobe on image [address] of 10/26/2017. There is diffuse emphysema and scattered interstitial fibrosis. Secretions are seen in the right bronchus intermedius extending peripherally into right lower lobe bronchus. Patchy peripheral infiltrates are seen in the inferior right lower lobe. There are mild interstitial infiltrates peripherally in the right mid and lower lobes, with some mild patchy infiltrate also seen in the right middle lobe. No gross adenopathy is seen in the axillary or mediastinal regions. There is no thoracic aortic aneurysm with mild scattered atherosclerotic calcification. The heart is not enlarged. There are degenerative changes of the spine. IMPRESSION: Very small residual left apical pneumothorax, with left pleural drainage catheter in place. Right middle and lower lobe infiltrates. Electronically Signed by Elliott Gates MD 05/11/2019 01:41 P
--- NOTE | 2019-05-11 11:41 | IPNPDOC ---
Subjective Date Seen The patient was seen on 05/11/19. Subjective Chief Complaint/HPI says feels tired as he did not get any rest last night. His breathing remains unchanged. Still leaking few bubbles specially when he coughs. No fever or chills. Noted new CT chest. Objective Physical Examination General Exam: Positive: Alert, Cooperative, Moderate Distress, Other (cachextic, has conversational dyspnea.) Eye Exam: Positive: PERRLA, Conjunctiva & lids normal, EOMI; Negative: Sclera icteric Neck Exam: Positive: Supple; Negative: JVD, thyromegaly Chest Exam: Positive: Diminished, Other (barel chest, few scattered creackles. 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 CT chest showed previously known emphysema and is seen as well as previously seen lung nodules. There was a moderate pneumothorax on the left size occupying perhaps 50% of the left hemithorax with possible very slight mediastinal shift. Pateint was also in acute respiratory failure with hypercarbia with copd exacerbation. patient had a Chest tube placed urgently with relief of the pneumothorax on 05/08. However till continues to leak air. His Acute repiratory failure has resolved. However still remains extremely SOb with minimal exertion with tachycardia and desaturations needing prolonged period of increased oxygen flow to recover. As per pulmonary that probably is his baseline with his advanced COPD. Left Pneumothorax s/p chest tube placement on 05/08 with persistent air leak As per pulmonary CT noted with increased infiltrates on the right. COPD exacerbation COPD/emphysema GOLD stage IV. continue duonebs and budesonide and methyl pred and azithromycin bicarb up today , will get ABG for tomorrow if it goes up further. CT chest with increased infiltrate on the right. will discuss with pulmonary if antibiotics needs to be expanded. No fever or chills, WBC is elevated but patient is also on steroids. S/P Acute respiratory failure with hypercarbia due to pneumothorax and COPD exacerbation now improved. Acute urinary retention in hospital clement dced will continue to monitor for retension. Bladder scan prn. Chronic back pain/Prior history of lumbar surgery will restart gabapentin at lower dose due to recent acute hypercarbia. History of alcohol use. history of tobacco dependency, quit in 2013. Severe malnutrition /pulmonary cachexia with severe muscle wasting and BMI of 17.6 Plan/VTE VTE Prophylaxis Ordered?: Yes VS, I&O, 24H, Fishbone Vital Signs/I&O Vital Signs Date Time Temp Pulse Resp B/P (MAP) Pulse Ox O2 Delivery O2 Flow Rate FiO2 05/11/19 08:07 97.5 79 22 165/86 (112) 96 Nasal Cannula 3.0 05/09/19 02:00 30 I&O- Last 24 Hours up to 6 AM 05/11/19 06:00 Intake Total 940 ml Output Total 1105 ml Balance -165 ml Laboratory Data 24H LABS Laboratory Tests 2 05/11/19 04:55: Nucleated Red Blood Cells % (auto) 0.0, Anion Gap 1L, Glomerular Filtration Rate > 60.0, Calcium Level 8.2L CBC/BMP Laboratory Tests 05/11/19 04:55 Microbiology Microbiology 05/08/19 Respiratory Virus Panel (PCR) ([facility]) - Final, Complete 05/07/19 Blood Culture - Preliminary, Resulted No Growth after 72 hours. All specime... 05/07/19 Blood Culture - Preliminary, Resulted No Growth after 72 hours. All specime... LIDIA AGUIRRE MD May 11, 2019 11:41
[2019-05-11 12:06] VITALS: BP 140/85
[2019-05-11] MEDS: cefTRIAXone SOD 1 GM in D5W MINI-BAG PLUS 50 ML IV SCH (12:44)
--- NOTE | 2019-05-11 13:50 | IPN ---
DATE OF SERVICE: 05/11/2019 The patient was seen, examined this morning during bedside rounds. The patient continues to report some shortness breath with activity and positioning as well as some cough, which he has been having some difficulty with expectorating with thick mucus. There were no fevers noted overnight. He is on nasal cannula oxygen and he has required some increase in the nasal cannula oxygen supplementation to 3 liters a minute. The patient's Pleur-Evac continues to show some bubbling with a persistent air leak. PHYSICAL EXAMINATION: Temperature 97.5, pulse 79, respirations 22, blood pressure 165/86, O2 sat 96% on 3 liters nasal cannula. General: The patient is a cachectic male lying in the bed. He is using some accessory muscles for respiration with pursed-lip breathing, but is able to speak in short sentences. HEENT: Normocephalic, atraumatic. Moist mucous membranes. Has dentures in place poor oral hygiene. Neck: Trachea is midline. No jugular venous distention (JVD) or palpable adenopathy. Cardiac: Distant heart sounds, regular rate and rhythm. Normal S1 and S2. No appreciable murmurs. Pulmonary: Some diminished breath sounds bilaterally with prolonged expiration and some faint rhonchi. Abdomen is soft, nontender, nondistended. There is no palpable mass. Extremities: No lower extremity bilaterally. There is evidence of muscle wasting and pulmonary cachexia. LABORATORY DATA: WBC 25.1, hemoglobin 14.4, platelets 279. Chemistry: Sodium is 134, potassium 4.3, chloride is 103, bicarb 35, BUN 32, creatinine 0.74, glucose 108. Chest x-ray this morning shows a persistent small apical pneumothorax on the left with a left-sided chest tube in place. There are some mild increased interstitial markings in the right base. ASSESSMENT AND PLAN: Mr. Singh is a 68-year-old male with history of Gold stage IV COPD with severe emphysema on nasal cannula oxygen nocturnally and with exertion who presents with increased shortness breath and respiratory distress. The patient was found have a moderate left pneumothorax as well as acute hypercarbic respiratory failure likely secondary to his pneumothorax as well as an acute COPD exacerbation. 1. Left pneumothorax in the setting of emphysema and COPD exacerbation. - The patient continues to have residual left apical pneumothorax on imaging and continues to have some bubbling noted in the Pleur-Evac consistent with a persistent small air leak. - Will consult cardiothoracic surgery and appreciate Dr. Ritter's recommendations. Will get a chest CT to further evaluate his pneumothorax. - Continue chest tube to wall suction with -30 cm water. - Continue with daily chest x-rays with the chest tube. - Continue pain control with Tylenol and Toradol as needed. 2. Acute COPD exacerbation with acute hypercarbic respiratory failure. The patient initially required BiPap, but he has been weaned off from BiPap to nasal cannula and he has been tolerating it. - Continue nasal cannula oxygen supplementation to maintain an oxygen sat above 90%. - The patient was noted to have increased infiltrate in the right base on the chest x-ray for which we will follow up the results of the CT, but suspect he may have some developing infiltrate and mucus plugging as he does have thick mucus that is difficult to expectorate. - Would continue with azithromycin, but will start ceftriaxone for broad spectrum coverage and check a sputum culture. He continues to have leukocytosis which was initially thought to be reactive to the steroids, but is increasing despite decreasing doses of Solu-Medrol. - Continue with Solu-Medrol, will taper from 40 mg q. 8 to q.12 hours. - Continue DuoNebs q.4 hours. - Continue Mucinex and will add Acapella for pulmonary toilet. DEEP VEIN THROMBOSIS PROPHYLAXIS: Lovenox. CODE STATUS: DO NOT RESUSCITATE/DO NOT INTUBATE (DNR/DNI).
[2019-05-11 16:28] VITALS: BP 124/60
--- NOTE | 2019-05-11 19:08 | CR ---
DATE OF CONSULTATION: 05/11/2019 The patient is seen at the request of Dr. Francois for continuing air leak after a spontaneous pneumothorax. HISTORY OF PRESENT ILLNESS: The patient is a 68-year-old white male who on 05/08/2019 experienced increasing shortness of breath. He already has known severe Gold IV emphysema. Nonetheless, he became significantly more short of breath but notably did not have chest pain. He was brought to the emergency room unable to speak in full sentences, and he was found to have a left sided pneumothorax. Dr. Gupta placed a chest tube with reexpansion of his lung. However, the chest tube is continuing to leak air. Today, I find him on 30 cm of water suction. He did not report fever, chills or sweats. He does have a continuing cough with sputum production. From the description of his presentation to the emergency room, it sounds as if he was in extremis with a respiratory rate over 30 and hypertensive with a tachycardia of 140. PAST MEDICAL HISTORY: 1. Chronic back pain. 2. History of alcohol abuse, now quit. 3. Chronic obstructive pulmonary disease (COPD) and emphysema, Gold stage IV. 4. Prior history of pneumonia in 2013. 5. Prior history of tobacco abuse, quit after his pneumonia in 2013. 6. History of stable pulmonary nodules. PAST SURGICAL HISTORY: 1. Left inguinal hernia. HOME MEDICATIONS: - Spiriva 18 mcg one puff daily - gabapentin 300 mg three times a day - Symbicort 160/4.5 two puffs twice a day - alendronate 10 mg daily - Ventolin HFA two puffs every four hours as needed for shortness of breath HABITS: Smoked one to one and a half packs of [employer] per day until 2013. He has been smoking since his teenage years. He used to imbibe beer and maintains that he quit 20 years ago. No illicit drugs. ALLERGIES: None. TRAVEL HISTORY: He was in the . He was in [employer] with basic training at [place], [place] and traveled to [place]. No travel to the [facility]. OCCUPATIONAL HISTORY: He used to work in [employer] but denies any known asbestos exposure. FAMILY HISTORY: Father with heart disease. Notably no family history of lung disease or lung cancer. EXPOSURES: He has [place] dogs at home. No cats or birds. REVIEW OF SYSTEMS: CONSTITUTIONAL: Without fever, chills, or sweats but has had a 20 pound weight loss over the last 6 months. He has not been trying to lose weight. EYES: Without diplopia. Without amaurosis fugax. Without prior jaundice. NOSE: Without epistaxis. MOUTH: Wears dentures. PULMONARY: See history of present illness. CARDIAC: See history of present illness. Denies intermittent claudication but has limited activity secondary to his chronic obstructive pulmonary disease (COPD). No prior history of myocardial infarctions. No leg edema. GASTROINTESTINAL: Without nausea, vomiting, diarrhea, constipation, melena, hematochezia, or abdominal pain. GENITOURINARY: Without history of renal stones. Without dysuria or hematuria. ENDOCRINE: Without diabetes. Without thyroid disease. PSYCHIATRIC: Without pathological anxieties, depression, or psychoses. NEUROLOGIC: Without paresthesias, paralyses or prior seizures. PHYSICAL EXAMINATION: VITAL SIGNS: Temperature 98.2, heart rate 87 in a sinus rhythm, respiratory rate of 22 with the use of accessory muscles and with pursed lip breathing, who is 97% saturated on 3 liters nasal cannula. Blood pressure is 140/85. GENERAL: Well developed, cachectic, white male with pursed lip breathing and still unable to speak in full sentences. EYES: Pupils are equal, round, and reactive to light and extraocular muscles intact. Sclerae nonicteric. NOSE: Without deformity. MOUTH: Mucous membranes are pink and moist. Lips and commissures without lesions. There is no thrush. HEAD: Normocephalic. NECK: Supple. There is no jugular venous distention (JVD). No subcutaneous emphysema. Trachea is midline. There are no carotic bruits, although he cannot hold his breath long enough for me to completely evaluate the carotids. He has 2+ carotid upstrokes. No thyromegaly. LUNGS: Markedly decreased breath sounds on both sides, a little bit more on the left than the right. Percussion note is full to the diaphragm. There is no subcutaneous emphysema over the chest. I do not hear wheezing at this point in time. CARDIAC: Without murmurs, clicks, gallops or rubs. He point of maximum impulse (PMI) is in the fifth intercostal space. S1, S2 normal. ABDOMEN: Soft, nontender. Bowel sounds positive. There is no hepatomegaly and no costovertebral angle tenderness. EXTREMITIES: No pretibial edema. No calf tenderness. No differential swelling of the upper extremities. SKIN: Warm, dry and perfused without cyanosis or mottling, including that of the nailbeds and knees. There is no clubbing. NEUROLOGIC: II through XII intact. Gross motor and gross sensation intact. Gait is not tested. PSYCHIATRIC: Shows him to be awake, alert, oriented times three but with speech hesitancy, probably secondary to his shortness of breath. INVESTIGATIONS: White count today is 25.1 with a hemoglobin and hematocrit of 14.4 and 43.7 and a platelet count of 275. His white count on admission was 26.3, which decreased to 16.9 and now is back up to 25.1. Chemistries show normal electrolytes except for an elevated total CO2 with a BUN and creatinine of 32 and 0.74 and a glucose of 108 with a calcium of 8.2. Blood gases on admission showed a pH of 7.22, PCO2 of 77, and PO2 of 146 with a base excess of 1.0. Blood gases on 05/09/2019 showed improvement to 7.41, PCO2 of 42 and a PO2 of 91 with a base excess of 1.8. No coagulation studies have been done. His chest x-ray shows markedly hyperinflated lungs with a pneumothorax located more inferiorly on the left side. His chest x-ray today after his chest tube was placed still shows a small apical pneumothorax. The inferior portion of the pneumothorax is resolved. Chest tube is in good place along the lateral chest wall but not to the apex. A chest CT done today after the chest tube was placed shows severe emphysematous disease throughout with larger bullae in the upper lobe of the left side with what may be a spiculated mass versus scar tissue at the apex. His lung parenchyma is almost completely destroyed on both sides. IMPRESSION: 1. Acute pneumothorax on the left side. 2. Severe emphysematous disease on both sides, left greater than right. 3. 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 4. Gold IV chronic obstructive pulmonary disease (COPD). 5. Chronic back pain. 6. Alveolar pleural fistula. PLAN/DISCUSSION: He still has an air leak and I have turned his suction down to 10 cm of water. This is a patient that I would be quite low to take the operating room for a bullae resection and talc pleurodesis. I do not think that he could tolerate one lung anesthesia and if he did he would be at risk for a pneumothorax on the right side. I will therefore continue to monitor his chest tube for the next number of days. I may need to either advance the chest tube or rewire it with another chest tube or place another chest tube in the apex. He still has a small pneumothorax noted at the apex on the chest CT, however, it is very small.
[2019-05-11 20:00] VITALS: BP 147/75
[2019-05-11] MEDS: AZITHROMYCIN 250 MG TAB PO SCH (20:43)
[2019-05-11] MEDS: amLODIPine 5 MG TAB PO SCH (20:44)
[2019-05-11 23:59] VITALS: BP 144/79
[2019-05-12] MEDS: IPRATROPIUM 0.5MG/ALBUTEROL 2.5MG INH SOL UD 3ML (DUONEB)(J7620) NEB SCH ×5 (00:54→20:47)
[2019-05-12 04:00] VITALS: BP 124/63
[2019-05-12 05:27] LABS: HEMATOCRIT 41.6 % (42.0-52.0); HEMOGLOBIN 13.4 g/dl (13.5-17.5); MEAN CORPUSCULAR HEMOGLOBIN 29.9 pg (27.0-33.0); MEAN CORPUSCULAR HGB CONC 32.2 g/dl (32.0-36.5); MEAN CORPUSCULAR VOLUME 92.9 fl (80.0-96.0); PLATELET COUNT, AUTOMATED 245 10^3/uL (150-450); RED BLOOD COUNT 4.48 10^6/uL (4.30-6.10); WHITE BLOOD COUNT 21.8 10^3/uL (4.0-10.0)
[2019-05-12 05:48] LABS: BLOOD UREA NITROGEN 29 MG/DL (7-18); CALCIUM LEVEL 8.2 MG/DL (8.8-10.2); CARBON DIOXIDE LEVEL 34 MEQ/L (21-32); CHLORIDE LEVEL 97 MEQ/L (98-107); CREATININE FOR GFR 0.79 MG/DL (0.70-1.30); GLOMERULAR FILTRATION RATE > 60.0 (>49); GLUCOSE, FASTING 107 MG/DL (70-100); POTASSIUM SERUM 4.8 MEQ/L (3.5-5.1); SODIUM LEVEL 137 MEQ/L (136-145)
[2019-05-12 06:19] LABS: ABG BASE EXCESS 6.7 (-2.0-2.0); ABG HCO3 32.4 MEQ/L (22.0-26.0); ABG O2 SATURATION 98.4 % (95.0-99.0); ABG STANDARD HCO3 30.6 MEQ/L (22.0-26.0)
[2019-05-12] MEDS: BUDESONIDE 0.5 MG/2 ML INHALATION SUSPENSION INH SCH ×2 (07:12→20:47)
[2019-05-12 08:00] VITALS: BP 149/67
--- NOTE | 2019-05-12 08:10 | REP ---
Portable chest x-ray: Single view. History: Chest tube. Comparison study: May 11, 2019. Findings: Left chest tube remains in place. There is no visible pneumothorax. A subtle infiltrate is present in the right base. Heart is not enlarged. The patient is somewhat rotated to the right. Monitoring electrodes are seen. Electronically Signed by Jhon Wilson MD 05/12/2019 08:02 A
[2019-05-12] MEDS: KETOROLAC 30 MG/ML VIAL (J1885) IV PRN (08:55)
[2019-05-12] MEDS: ENOXAPARIN 30 MG/0.3 ML SYR (J1650) SC SCH (09:02)
[2019-05-12] MEDS: GABAPENTIN 100 MG CAP PO SCH ×3 (09:02→20:36)
[2019-05-12] MEDS: guaiFENesin ER 600 MG TAB PO SCH ×2 (09:02→20:35)
[2019-05-12] MEDS: methylPREDNISolone INJ 40 MG/1 ML VIAL (J2920) IV SCH ×2 (09:02→20:35)
[2019-05-12 12:00] VITALS: BP 154/69
--- NOTE | 2019-05-12 12:00 | IPN ---
DATE: 05/12/2019 Mr. Singh continue to note shortness of breath that is above his baseline. He has a cough. He still has difficulty with expectoration and describes his mucous as thick. No chest pain or pressure. He denies any significant pain from a chest tube site. He denies abdominal pain, nausea or emesis. No fevers overnight. Unfortunately, his chest tube continues to show a persistent air leak. OBJECTIVE: PHYSICAL EXAMINATION: GENERAL: Mr. Singh is lying in bed. He speaks short sentences. He is cachectic. He is using supraclavicular muscles for inspiration and pursed lip breathing. No cough on evaluation. VITAL SIGNS: Temperature 97.5 with a T-max of 97.6, pulse 74, respiratory rate 20, blood pressure 149/67 with a MAP of 94, SPO2 98% on 3 liters by nasal cannula. HEENT: Anicteric. Nares: Patent bilaterally. Oropharynx: Dry mucosa. Poor hygiene dentures. NECK: Supple, without jugular venous distention (JVD) without thyromegaly or masses, trachea is midline. LYMPH: Without cervical or supraclavicular lymphadenopathy. CHEST: Increased diameter. Markedly diminished air entry. No wheeze, rhonchi or significant crackles heard on tidal excursion. Prolonged expiratory phase. Supraclavicular accessory muscle usage on inspiration occasional abdominal muscularly on expiration. Pursed-lip breathing. CARDIAC: Distant, regular rate and rhythm, no murmur, rub or gallop appreciated of difficult exam. ABDOMEN: Positive bowel sounds, soft, nondistended, nontender, no hepatosplenomegaly or masses appreciated. EXTREMITIES: Without clubbing, cyanosis or edema. Palpable pedal pulses bilaterally. LABORATORY DATA: CBC from this morning showed a hemoglobin 13.4, hematocrit 41.6, platelet count 244,000 and white blood cell count 21,800. Chemistry shows sodium 137, potassium 4.8, chloride 97, bicarbonate 34, anion gap 6, BUN 29, creatinine 0.8, glucose 107, calcium 8.2. Arterial blood gas is 7.43/50/120 with a measured saturation of 98% moises a base excess of 6.79. Yesterday's input and output were 1215 in and 987 out making him positive 228. Of the output 22 mL was from the chest tube. Thus far today 780 in and 405 out making him positive 375. Of the output 5 mL is from the chest tube. Weight 44.7 kg. I reviewed his chest x-ray as well as the report from earlier today. That x-ray shows normal appearing cardiac silhouette and pulmonary vascular shadows. The mediastinal hilar regions. There is perhaps an infiltrate in the right base. No obvious pneumothorax. IMPRESSION: 1. Left pneumothorax in this setting of severe emphysema and a chronic obstructive pulmonary disease (COPD) exacerbation; now with bronchopleural fistula. 2. Acute COPD exacerbation with hypoxemia and hypercapnia. 3. Chronic obstructive pulmonary disease (COPD) GOLD stage IV at baseline. 4. Pulmonary cachexia. RECOMMENDATIONS: 1. Continue Rocephin and azithromycin. 2. Continue Solu-Medrol. Will decrease that to 40 mg IV every 24 starting tomorrow. 3. Appreciate Dr. Ritter's input.
[2019-05-12] MEDS: cefTRIAXone SOD 1 GM in D5W MINI-BAG PLUS 50 ML IV SCH ×4 (12:18→23:45)
[2019-05-12 16:00] VITALS: BP 147/84
--- NOTE | 2019-05-12 16:23 | IPN ---
DATE: 05/12/2019 Mr Singh is doing slightly better today. I do not see him purse lip breathing and I think that his breathing more comfortable. Nonetheless, he still is tachypneic with a respiratory rate of 24-25. His vital signs show a maximum temperature (Tmax) of 98.1 with a heart rate that ranges between 78-82 in a sinus rhythm, respiratory rate of 18-22 recorded with the use of cervical accessory muscles and who is 99% saturated on 3 liters nasal cannula and whose blood pressure is ranging between 144/79-124/63. His intake and output for the past 24 hours has been recorded as 1215 in and 987 out for a positivity of 228 mL. He has put 22 mL out of the chest tube and he still has an air leak even on 10 cm of suction. Weight today is 44.7 kg compared to 48.1 kg 2 days ago. On physical examination, he has equal breath sounds today on either side. Percussion note is full the diaphragm. I feel no subcutaneous emphysema. Cardiac exam is without murmurs, clicks, gallops, or rubs. I cannot feel his point of maximal impulse (PMI). S1 and S2 are normal. Abdomen is soft and nontender. Bowel sounds are positive. There is no hepatomegaly. No costovertebral angle (CVA) tenderness. Extremities show no pretibial edema. No calf tenderness. No differential swelling of the upper extremities. His skin is warm, dry, and perfused without cyanosis or mottling, including that of the nail beds and the knees. Neck is supple. There is no jugular venous distention. No subcutaneous emphysema. Trachea is midline. Mouth shows his mucous membranes to be pink and moist. Lips and commissures are without lesions. He now has thrush with red mucous membranes. Eyes show his pupils to be equal and reactive. Extraocular motor intact. Sclerae are nonicteric. Neurologic shows II-XII intact along with gross motor and gross sensation intact. Gait is not tested. Psychiatric exam shows him to be awake and alert, oriented times three with appropriate mood and affect, and conversational. His white count today is 21.8, down from 25.1 yesterday. Hemoglobin and hematocrit are 13.4 and 41.6 respectively, with a platelet count of 245. There is no differential. Electrolytes are essentially normal with an elevated total CO2 of 34 and with BUN and creatinine 29 and 0.79, and glucose 179, calcium 8.2. Blood gas today show a pH of 7.43, pCO2 of 50, pO2 of 120 on 3 liters nasal cannula with a base excess of 6.7. His chest x-ray today is unchanged from yesterday. It is done portably and he still has a small, almost imperceptible rim of a pneumothorax and/or apical air space. The chest tube looks to be in good place but it is not at the apex. I think the subcutaneous emphysema is less today than it was yesterday at the chest tube insertion site. At least it looks to be more dissipated. IMPRESSION: 1. Severe chronic obstructive pulmonary disease (COPD). Goal stage IV. 2. Spontaneous pneumothorax probably from a bleb rupture. 3. Bullous disease of left upper lobe. 4. Chronic back pain. 5. Alveolar pleural fistula. PLAN AND DISCUSSION: I will remove his chest tube to suction today. Hopefully it is the suction that is exacerbating the air leak and hopefully the air will stop. I am very concerned that it is not and that my options are quite limited as I am very sure that he would not tolerate a talc pleurodesis and bulla resection with one lung anesthesia.
[2019-05-12] MEDS: NYSTATIN 500,000 U/5 ML SUSP UDC SS SCH ×2 (17:50→20:35)
[2019-05-12] MEDS: ACETAMINOPHEN TAB 650MG DOSE (2X325MG) PO PRN (17:50)
[2019-05-12 20:00] VITALS: BP 152/79
[2019-05-12] MEDS: amLODIPine 5 MG TAB PO SCH (20:36)
[2019-05-12] MEDS: AZITHROMYCIN 250 MG TAB PO SCH (20:36)
[2019-05-12 23:59] VITALS: BP 133/72
[2019-05-13 04:00] VITALS: BP 177/94
[2019-05-13] MEDS: IPRATROPIUM 0.5MG/ALBUTEROL 2.5MG INH SOL UD 3ML (DUONEB)(J7620) NEB SCH ×3 (04:00→08:32)
[2019-05-13 05:31] LABS: HEMOGLOBIN 14.1 g/dl (13.5-17.5); MEAN CORPUSCULAR HEMOGLOBIN 30.1 pg (27.0-33.0); MEAN CORPUSCULAR HGB CONC 32.8 g/dl (32.0-36.5); MEAN CORPUSCULAR VOLUME 91.9 fl (80.0-96.0); PLATELET COUNT, AUTOMATED 266 10^3/uL (150-450); RED BLOOD COUNT 4.68 10^6/uL (4.30-6.10); WHITE BLOOD COUNT 16.6 10^3/uL (4.0-10.0)
[2019-05-13 05:50] LABS: BLOOD UREA NITROGEN 29 MG/DL (7-18); CALCIUM LEVEL 8.9 MG/DL (8.8-10.2); CARBON DIOXIDE LEVEL 37 MEQ/L (21-32); CHLORIDE LEVEL 95 MEQ/L (98-107); CREATININE FOR GFR 0.83 MG/DL (0.70-1.30); GLOMERULAR FILTRATION RATE > 60.0 (>49); GLUCOSE, FASTING 125 MG/DL (70-100); POTASSIUM SERUM 4.4 MEQ/L (3.5-5.1); SODIUM LEVEL 135 MEQ/L (136-145)
--- NOTE | 2019-05-13 06:57 | IPNPDOC ---
Subjective Date Seen The patient was seen on 05/12/19. Subjective Chief Complaint/HPI Continues to have significant sob with desaturations on minimal movement needing long time to recover with increased oxygen. continues to have air leak, No fever or chills. Objective Physical Examination General Exam: Positive: Alert, Cooperative, Moderate Distress, Other (cachextic, has conversational dyspnea.) Eye Exam: Positive: PERRLA, Conjunctiva & lids normal, EOMI; Negative: Sclera icteric Neck Exam: Positive: Supple; Negative: JVD, thyromegaly Chest Exam: Positive: Diminished, Other (barel chest, few scattered creackles. 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 CT chest showed previously known emphysema and is seen as well as previously seen lung nodules. There was a moderate pneumothorax on the left size occupying perhaps 50% of the left hemithorax with possible very slight mediastinal shift. Pateint was also in acute respiratory failure with hypercarbia with copd exacerbation. patient had a Chest tube placed urgently with relief of the pneumothorax on 05/08. However till continues to leak air. His Acute repiratory failure has resolved. However still remains extremely SOb with minimal exertion with tachycardia and desaturations needing prolonged period of increased oxygen flow to recover. As per pulmonary that probably is his baseline with his advanced COPD. Left Pneumothorax s/p chest tube placement on 05/08 with persistent air leak As per pulmonary CT noted with increased infiltrates on the right started on ceftriaxone Pneumonia CT chest with new infiltrates. on ceftriaxone and azithromycin. COPD exacerbation COPD/emphysema GOLD stage IV. continue duonebs and budesonide and methyl pred and azithromycin bicarb up today , will get ABG for tomorrow if it goes up further. CT chest with increased infiltrate on the right. S/P Acute respiratory failure with hypercarbia due to pneumothorax and COPD exacerbation now improved. Acute urinary retention in hospital clement dced will continue to monitor for retention. Bladder scan prn. Chronic back pain/Prior history of lumbar surgery will restart gabapentin at lower dose due to recent acute hypercarbia. History of alcohol use. history of tobacco dependency, quit in 2013. Severe malnutrition /pulmonary cachexia with severe muscle wasting and BMI of 17.6 Hypertension No history of HTN. However in hospital his bp pressures were high so started on amlodipine. Plan/VTE VTE Prophylaxis Ordered?: Yes VS, I&O, 24H, Fishbone Vital Signs/I&O Vital Signs Date Time Temp Pulse Resp B/P (MAP) Pulse Ox O2 Delivery O2 Flow Rate FiO2 05/12/19 04:00 3.0 05/12/19 04:00 97.6 82 18 124/63 (83) 99 Nasal Cannula 05/09/19 02:00 30 I&O- Last 24 Hours up to 6 AM 05/12/19 06:00 Intake Total 1635 ml Output Total 1287 ml Balance 348 ml Laboratory Data 24H LABS Laboratory Tests 2 05/12/19 04:59: Nucleated Red Blood Cells % (auto) 0.0, Anion Gap 6L, Glomerular Filtration Rate > 60.0, Calcium Level 8.2L 05/12/19 06:11: Blood Gas Bicarbonate Standard 30.6H, Arterial Blood pH 7.430, Arterial Blood Partial Pressure CO2 50.0H, Arterial Blood Partial Pressure O2 120.0H, Arterial Blood Total CO2 34.0H, Arterial Blood HCO3 32.4H, Arterial Blood Base Excess 6.7H, Arterial Blood Oxygen Saturation 98.4 CBC/BMP Laboratory Tests 05/12/19 04:59 Microbiology Microbiology 05/11/19 Gram Stain, Received Pending 05/11/19 Sputum Culture, Received Pending 05/08/19 Respiratory Virus Panel (PCR) ([facility]) - Final, Complete 05/07/19 Blood Culture - Preliminary, Resulted No Growth after 72 hours. All specime... 05/07/19 Blood Culture - Preliminary, Resulted No Growth after 72 hours. All specime... LIDIA AGUIRRE MD May 12, 2019 07:11
[2019-05-13 08:00] VITALS: BP 142/86
[2019-05-13] MEDS: BUDESONIDE 0.5 MG/2 ML INHALATION SUSPENSION INH SCH ×2 (08:32→18:19)
[2019-05-13] MEDS: GABAPENTIN 100 MG CAP PO SCH ×3 (09:28→20:01)
[2019-05-13] MEDS: methylPREDNISolone INJ 40 MG/1 ML VIAL (J2920) IV SCH ×2 (09:29→20:01)
[2019-05-13] MEDS: NYSTATIN 500,000 U/5 ML SUSP UDC SS SCH ×4 (09:29→20:01)
[2019-05-13] MEDS: guaiFENesin ER 600 MG TAB PO SCH ×2 (09:29→20:01)
[2019-05-13] MEDS: ENOXAPARIN 30 MG/0.3 ML SYR (J1650) SC SCH (09:30)
--- NOTE | 2019-05-13 10:34 | IPNPDOC ---
Subjective Date Seen The patient was seen on 05/13/19. Subjective Chief Complaint/HPI SOb better. Says breathing is close to baseline. However having difficulty in urinating. yesterday was fine but today could not go. Bladder scan showed > 1000ml. So clement was placed back in. Still will bubbles in the chest tube. No fever or chills, continues to have cough and phlegm. Objective Physical Examination General Exam: Positive: Alert, Cooperative, Moderate Distress, Other (cachextic, has conversational dyspnea.) Eye Exam: Positive: PERRLA, Conjunctiva & lids normal, EOMI; Negative: Sclera icteric Neck Exam: Positive: Supple; Negative: JVD, thyromegaly Chest Exam: Positive: Diminished, Other (barel chest, few scattered creackles. ) Heart Exam: Positive: Tachycardic, Regular Rhythm, Normal S1, Normal S2 Telemetry: Positive: No significant arrhythmia Abdomen Exam: Positive: Normal bowel sounds, Soft; Negative: Tenderness, Hepatospenomegaly Extremity Exam: Negative: Clubbing, Cyanosis, Edema Psych Exam: Positive: Mental status NL, Mood NL, Oriented x 3 Assessment /Plan Assessment 68-year-old male with a history of severe GOLD stage IV Chronic obstructive pul monary disease (COPD) with emphysema, history of nasal cannula oxygen supplementation with exertion and at rest who presented to the emergency department (ED) with worsening shortness of breath and respiratory distress. CT chest showed previously known emphysema and is seen as well as previously se en lung nodules. There was a moderate pneumothorax on the left size occupying perhaps 50% of the left hemithorax with possible very slight mediastinal shift. Pateint was also in acute respiratory failure with hypercarbia with copd exacerbation. patient had a Chest tube placed urgently with relief of the pneumothorax on 05/08. However till continues to leak air. His Acute repiratory failure has resolved. However still remains extremely SOb with minimal exertion with tachycardia and desaturations needing prolonged period of increased oxygen flow to recover. As per pulmonary that probably is his baseline with his advanced COPD. Left Pneumothorax s/p chest tube placement on 05/08 with persistent air leak As per pulmonary CT noted with increased infiltrates on the right started on ceftriaxone Pneumonia CT chest with new infiltrates. on ceftriaxone and azithromycin. Acute urinary retention in hospital Again could not void this am. Duoneb could be worsening it . will change to albuterol and spiriva. bladder scan> 1000ml this am Clement put back in. 1150 cc came out will start on flomax will give trial of void after 1 week COPD exacerbation COPD/emphysema GOLD stage IV. Duoneb changed to albuterol and spiriva due to urinary retention. continues budesonide and methyl pred and azithromycin bicarb up today , will get ABG for tomorrow if it goes up further. CT chest with increased infiltrate on the right. S/P Acute respiratory failure with hypercarbia due to pneumothorax and COPD exacerbation now improved. Chronic back pain/Prior history of lumbar surgery will restart gabapentin at lower dose due to recent acute hypercarbia. History of alcohol use. history of tobacco dependency, quit in 2013. Severe malnutrition /pulmonary cachexia with severe muscle wasting and BMI of 17.6 Hypertension No history of HTN. However in hospital his bp pressures were high so started on amlodipine. Plan/VTE VTE Prophylaxis Ordered?: Yes VS, I&O, 24H, Fishbone Vital Signs/I&O Vital Signs Date Time Temp Pulse Resp B/P (MAP) Pulse Ox O2 Delivery O2 Flow Rate FiO2 05/13/19 08:00 98.0 85 18 142/86 (104) 97 Nasal Cannula 3.0 05/09/19 02:00 30 I&O- Last 24 Hours up to 6 AM 05/13/19 06:00 Intake Total 1610 ml Output Total 150 ml Balance 1460 ml Laboratory Data 24H LABS Laboratory Tests 2 05/13/19 04:33: Nucleated Red Blood Cells % (auto) 0.0, Anion Gap 3L, Glomerular Filtration Rate > 60.0, Calcium Level 8.9 CBC/BMP Laboratory Tests 05/13/19 04:33 Microbiology Microbiology 05/11/19 Gram Stain - Final, Complete 05/11/19 Sputum Culture - Final, Complete Escherichia Coli Yeast Like Organism 05/08/19 Respiratory Virus Panel (PCR) ([facility]) - Final, Complete 05/07/19 Blood Culture - Final, Complete NO GROWTH AFTER 5 DAYS 05/07/19 Blood Culture - Final, Complete NO GROWTH AFTER 5 DAYS LIDIA AGUIRRE MD May 13, 2019 10:34
[2019-05-13] MEDS: TAMSULOSIN 0.4 MG CAP PO SCH (11:18)
[2019-05-13] MEDS: TIOTROPIUM INHALER/CAPSULE (SPIRIVA) INH SCH (11:20)
--- NOTE | 2019-05-13 11:30 | REP ---
REASON: History of pneumothorax. COMPARISON: 05/12/2019 at 6:47 am. The lung park are cardiomediastinal silhouette are unchanged. Left sided thoracotomy tube is unchanged. The osseous structures are unchanged. IMPRESSION:No evidence of significant change. Electronically Signed by Ruben Saleem DO 05/13/2019 12:15 P
[2019-05-13 12:00] VITALS: BP 136/75
[2019-05-13] MEDS: ALBUTEROL SULFATE 2.5 MG/0.5 ML INH NEB SOLN NEB SCH ×4 (12:00→23:48)
--- NOTE | 2019-05-13 12:14 | IPN ---
DATE: 05/13/2019 Mr. Singh is breathing well today. He is not pursed lip breathing. His pain is being well controlled at the chest tube insertion site. He still has an air leak, but the chest x-ray shows his lung fully expanded to the chest wall. His vital signs show a maximum temperature (t-max) of 98.0 with a heart rate that ranges between 72 and 85 in a sinus rhythm with a respiratory rate of 18 to 20 without the use of accessory muscles, who is 96 to 98% saturated on 3 liters nasal cannula and whose blood pressure is ranging between 177/94 to 133/72. His intake and output the past 24 hours has been recorded as 1260 in and 555 out for a positivity of 700 mL. However, he was found to have over 1000 mL of urine within his bladder and Holley was placed this morning with 1400 mL output. He has put out 5 mL from the chest tube yesterday. Weight today is 47.4 kg compared to 44.7 kg yesterday, weight was done before the Holley was placed. PHYSICAL EXAMINATION: LUNGS: He has coarse rhonchi, most of which clears with coughing. He has markedly decreased breath sounds on both sides but equally so. Percussion note is hyperresonant on both sides, it is full to the diaphragm. CARDIAC EXAM: Without murmurs, clicks, gallops or rubs. I cannot feel his point of maximum impulse (PMI). S1, S2 are normal. ABDOMEN: Soft, nontender. Bowel sounds positive. There is no hepatomegaly. No costovertebral angle tenderness. EXTREMITIES: Show no pretibial edema. No calf tenderness. No differential swelling of the upper extremities. SKIN: Warm, dry and perfused without cyanosis or mottling, including that of the nail beds and knees. NECK: Supple. There is no jugular venous distention. No subcutaneous emphysema. Trachea is midline. There is no subcutaneous emphysema over the anterior chest. MOUTH: Shows his mucous membranes to be pink and moist. Lips and commissures without lesions but his tongue is still reddened but the white thrush exudate is almost gone. EYES: Show his pupils to be equal and reactive. Extraocular motion intact. Sclerae anicteric. NEUROLOGIC: Shows II through XII intact with gross motor and gross sensation intact. Gait is not tested. PSYCHIATRIC: Shows him to be awake and alert, oriented times three with appropriate mood and affect and conversational. LABORATORY DATA: His white count today is 16.6, down from 28.8 yesterday. Hemoglobin and hematocrit are 14.1 and 43.0, respectively, with a platelet count of 266. Electrolytes are essentially normal with an elevated total CO2 of 37, BUN and creatinine of 29 and 0.83 with a glucose of 125 and calcium 8.9. His chest x-ray today shows the lung fully expanded to the chest wall. I do not see any infiltrates. He has a paucity of air markings. His right lung shows a line, which looks to be a skin fold rather than a pneumothorax. His subcutaneous emphysema continues to dissipate. He is now only on water seal. The chest x-ray today was done PA and lateral and his lateral film shows the chest tube heading posteriorly. IMPRESSION: 1. Severe chronic obstructive pulmonary disease (COPD), Gold stage IV. 2. Spontaneous pneumothorax, most probably from bleb rupture. 3. 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 4. Chronic back pain. 5. Alveolar pleural fistula, continuing. PLAN/DISCUSSION: I am going to keep him on water seal as his lung is expanded to the chest wall. I am hoping that the leak will eventually seal. As noted in prior notes, I do not think that he is a viable candidate for a talc pleurodesis or wedge resection. I may come to doing a blood patch on him, but I would like to see what happens over the next few days in regard to his air leak stopping.
[2019-05-13] MEDS: cefTRIAXone SOD 1 GM in D5W MINI-BAG PLUS 50 ML IV SCH ×2 (12:41→23:39)
[2019-05-13 16:00] VITALS: BP 142/77
[2019-05-13 20:00] VITALS: BP 137/82
[2019-05-13] MEDS: AZITHROMYCIN 250 MG TAB PO SCH (20:01)
[2019-05-13] MEDS: amLODIPine 5 MG TAB PO SCH (20:02)
[2019-05-14] VITALS (7 sets, daily range): BP systolic 123–145; BP diastolic 66–85
[2019-05-14] MEDS: ALBUTEROL SULFATE 2.5 MG/0.5 ML INH NEB SOLN NEB SCH ×5 (03:44→20:41)
[2019-05-14 05:31] LABS: HEMOGLOBIN 13.5 g/dl (13.5-17.5); MEAN CORPUSCULAR HEMOGLOBIN 29.5 pg (27.0-33.0); MEAN CORPUSCULAR HGB CONC 32.1 g/dl (32.0-36.5); MEAN CORPUSCULAR VOLUME 91.9 fl (80.0-96.0); PLATELET COUNT, AUTOMATED 287 10^3/uL (150-450); RED BLOOD COUNT 4.57 10^6/uL (4.30-6.10); WHITE BLOOD COUNT 15.8 10^3/uL (4.0-10.0)
[2019-05-14 05:53] LABS: BLOOD UREA NITROGEN 24 MG/DL (7-18); CALCIUM LEVEL 8.6 MG/DL (8.8-10.2); CARBON DIOXIDE LEVEL 36 MEQ/L (21-32); CHLORIDE LEVEL 94 MEQ/L (98-107); CREATININE FOR GFR 0.79 MG/DL (0.70-1.30); GLOMERULAR FILTRATION RATE > 60.0 (>49); GLUCOSE, FASTING 112 MG/DL (70-100); POTASSIUM SERUM 4.3 MEQ/L (3.5-5.1); SODIUM LEVEL 136 MEQ/L (136-145)
[2019-05-14] MEDS: methylPREDNISolone INJ 40 MG/1 ML VIAL (J2920) IV SCH ×2 (09:06→20:36)
[2019-05-14] MEDS: guaiFENesin ER 600 MG TAB PO SCH ×2 (09:06→20:35)
[2019-05-14] MEDS: NYSTATIN 500,000 U/5 ML SUSP UDC SS SCH ×4 (09:06→20:36)
[2019-05-14] MEDS: TAMSULOSIN 0.4 MG CAP PO SCH (09:06)
[2019-05-14] MEDS: GABAPENTIN 100 MG CAP PO SCH ×3 (09:06→20:35)
[2019-05-14] MEDS: ENOXAPARIN 30 MG/0.3 ML SYR (J1650) SC SCH (09:07)
[2019-05-14] MEDS: BUDESONIDE 0.5 MG/2 ML INHALATION SUSPENSION INH SCH ×2 (09:19→20:41)
[2019-05-14] MEDS: TIOTROPIUM INHALER/CAPSULE (SPIRIVA) INH SCH (09:20)
--- NOTE | 2019-05-14 09:44 | IPNPDOC ---
Subjective Date Seen The patient was seen on 05/14/19. Subjective Chief Complaint/HPI Does not offer any complaints today. Says breathing is Ok . Not in any distress today. No fever or chills. Has chronic cough. Objective Physical Examination General Exam: Positive: Alert, Cooperative, No Acute Distress, Other (cachextic) Eye Exam: Positive: PERRLA, Conjunctiva & lids normal, EOMI; Negative: Sclera icteric Neck Exam: Positive: Supple; Negative: JVD, thyromegaly Chest Exam: Positive: Diminished, Other (barel chest, few scattered creackles. ) Heart Exam: Positive: Tachycardic, Regular Rhythm, Normal S1, Normal S2 Telemetry: Positive: No significant arrhythmia Abdomen Exam: Positive: Normal bowel sounds, Soft; Negative: Tenderness, Hepatospenomegaly Extremity Exam: Negative: Clubbing, Cyanosis, Edema Psych Exam: Positive: Mental status NL, Mood NL, Oriented x 3 Assessment /Plan Assessment 68-year-old male with a history of 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 CT chest showed previously known emphysema and is seen as well as previously seen lung nodules. There was a moderate pneumothorax on the left size occupying perhaps 50% of the left hemithorax with possible very slight mediastinal shift. Patient was also in acute respiratory failure with hypercarbia with copd exacerbation. patient had a Chest tube placed urgently with relief of the pneumothorax on 05/08. However till continues to leak air. His Acute respiratory failure has resolved. However still remains extremely SOb with minimal exertion with tachycardia and desaturations needing prolonged period of increased oxygen flow to recover. As per pulmonary that probably is his baseline with his advanced COPD. Left Pneumothorax s/p chest tube placement on 05/08 with persistent air leak Dr Ritter following CT noted with increased infiltrates on the right started on ceftriaxone Pneumonia CT chest with new infiltrates. on ceftriaxone and azithromycin. Acute urinary retention in hospital Duoneb could be worsening it ,changed to albuterol and spiriva. bladder scan> 1000ml again on 05/13/19 Holley put back in. 1150 cc came out started on flomax will give trial of void after 1 week COPD exacerbation COPD/emphysema GOLD stage IV. Duoneb changed to albuterol and spiriva due to urinary retention. continues budesonide and methyl pred and azithromycin bicarb up today , will get ABG for tomorrow if it goes up further. CT chest with increased infiltrate on the right. S/P Acute respiratory failure with hypercarbia due to pneumothorax and COPD exacerbation now improved. Chronic back pain/Prior history of lumbar surgery will restart gabapentin at lower dose due to recent acute hypercarbia. History of alcohol use. history of tobacco dependency, quit in 2013. Severe malnutrition /pulmonary cachexia with severe muscle wasting and BMI of 17.6 Hypertension No history of HTN. However in hospital his bp pressures were high so started on amlodipine. Plan/VTE VTE Prophylaxis Ordered?: Yes VS, I&O, 24H, Fishbone Vital Signs/I&O Vital Signs Date Time Temp Pulse Resp B/P (MAP) Pulse Ox O2 Delivery O2 Flow Rate FiO2 05/14/19 08:00 96.4 82 26 144/85 (104) 92 Nasal Cannula 3.0 05/09/19 02:00 30 I&O- Last 24 Hours up to 6 AM 05/14/19 06:00 Intake Total 807 ml Output Total 4775 ml Balance -3968 ml Laboratory Data 24H LABS Laboratory Tests 2 05/14/19 04:53: Nucleated Red Blood Cells % (auto) 0.0, Anion Gap 6L, Glomerular Filtration Rate > 60.0, Calcium Level 8.6L CBC/BMP Laboratory Tests 05/14/19 04:53 Microbiology Microbiology 05/11/19 Gram Stain - Final, Complete 05/11/19 Sputum Culture - Final, Complete Escherichia Coli Yeast Like Organism 05/08/19 Respiratory Virus Panel (PCR) ([facility]) - Final, Complete 05/07/19 Blood Culture - Final, Complete NO GROWTH AFTER 5 DAYS 05/07/19 Blood Culture - Final, Complete NO GROWTH AFTER 5 DAYS LIDIA AGUIRRE MD May 14, 2019 09:44
[2019-05-14] MEDS: cefTRIAXone SOD 1 GM in D5W MINI-BAG PLUS 50 ML IV SCH (11:24)
[2019-05-14] MEDS: ACETAMINOPHEN TAB 650MG DOSE (2X325MG) PO PRN ×2 (11:25→20:35)
--- NOTE | 2019-05-14 11:35 | REP ---
REASON: Followup. COMPARISON: Yesterday. The cardiomediastinal silhouette and lung park are unchanged. Left sided thoracotomy tube is unchanged. The osseous structures are unchanged. The degree of left sided subcutaneous emphysema is unchanged. There are no changes from yesterday. Electronically Signed by Ruben Saleem DO 05/14/2019 11:47 A
--- NOTE | 2019-05-14 20:12 | IPN ---
DATE: 05/14/2019 Mr. Singh still has an air leak. He is sitting up comfortably and breathing comfortably. His chest x-ray shows his lung fully expanded to the chest wall. His vital signs show a maximum temperature (t-max) of 98.0 with a heart rate that ranges between 79 and 107 in a sinus rhythm, respiratory rate of 18 to 26 without the use of accessory muscles, who is 92 to 94% saturated on 3 liters nasal cannula, and blood pressure is ranging between 131/75 to 144/85. His intake and output for the past 24 hours has been recorded as 1427 in and 3200 out for a negativity of 1700 mL. He has put nothing out of the chest tube. Weight today is 47 kg, compared to 47.4 kg yesterday. PHYSICAL EXAMINATION LUNGS: He has equal breath sounds on either side. They are both markedly reduced. Percussion note is full to the diaphragm. I feel no subcutaneous emphysema. CARDIAC EXAM: Without murmurs, clicks, gallops or rubs. I cannot feel his point of maximum impulse (PMI). S1, S2 are normal. ABDOMEN: Soft, nontender. Bowel sounds positive. There is no hepatomegaly. No costovertebral angle tenderness. EXTREMITIES: Show no pretibial edema. No calf tenderness. No differential swelling of the upper extremities. SKIN: Warm, dry and perfused without cyanosis or mottling, including that of the nail beds and knees. NECK: Supple. There is no jugular venous distention. No subcutaneous emphysema. Trachea is midline. MOUTH: Shows his mucous membranes to be pink and moist. Lips and commissures without lesions. The thrush is almost gone and mucous membranes are much less red. EYES: Show his pupils to be equal and reactive. Extraocular motion intact. Sclerae anicteric. NEUROLOGIC: Shows II through XII intact with gross motor and gross sensation intact. Gait is not tested. PSYCHIATRIC: Shows him to be awake and alert, oriented times three with appropriate mood and affect and conversational. LABORATORY DATA: His white count today is down to 15.8 with a hemoglobin and hematocrit of 13.5 and 42.0 and a platelet count of 297. There is no differential. Electrolytes show an elevated total CO2 of 36, consistent with his chronic obstructive pulmonary disease (COPD). BUN and creatinine are 24 and 0.79 with a glucose of 112 and calcium of 8.6. His chest x-ray today shows the lung fully expanded to the chest wall. He looks to have bilateral skin folds in the upper lateral hemithoraces. At first, I thought the skin fold was a pneumothorax, however, it is continuous with his axilla. Subcutaneous emphysema is dissipating. I do not see infiltrates and his lateral chest x-ray shows no posterior infiltrates. There may be some costophrenic atelectasis. IMPRESSION: 1. Severe chronic obstructive pulmonary disease (COPD), Gold stage IV with spontaneous pneumothorax on the left, most probably from a bleb rupture. 2. Bullous disease on the left upper lobe. 3. Chronic back pain. 4. Alveolar pleural fistula, continuing. PLAN/DISCUSSION: If he does not stop tomorrow, I will do a blood patch. This will entail placing a central line and infusing blood into the chest. I have noted in my prior progress notes that I am quite loathed to take him to the operating room for a definitive procedure, to include a talc pleurodesis and a wedge resection.
[2019-05-14] MEDS: AZITHROMYCIN 250 MG TAB PO SCH (20:35)
[2019-05-14] MEDS: amLODIPine 5 MG TAB PO SCH (20:36)
[2019-05-15] VITALS (19 sets, daily range): BP systolic 109–160; BP diastolic 58–92
[2019-05-15] MEDS: cefTRIAXone SOD 1 GM in D5W MINI-BAG PLUS 50 ML IV SCH ×2 (00:08→12:18)
[2019-05-15] MEDS: ALBUTEROL SULFATE 2.5 MG/0.5 ML INH NEB SOLN NEB SCH ×7 (00:49→23:35)
[2019-05-15 05:09] LABS: HEMATOCRIT 42.7 % (42.0-52.0); HEMOGLOBIN 13.6 g/dl (13.5-17.5); MEAN CORPUSCULAR HEMOGLOBIN 29.6 pg (27.0-33.0); MEAN CORPUSCULAR HGB CONC 31.9 g/dl (32.0-36.5); PLATELET COUNT, AUTOMATED 329 10^3/uL (150-450); RED BLOOD COUNT 4.59 10^6/uL (4.30-6.10); WHITE BLOOD COUNT 19.4 10^3/uL (4.0-10.0)
[2019-05-15 05:23] LABS: BLOOD UREA NITROGEN 28 MG/DL (7-18); CALCIUM LEVEL 8.8 MG/DL (8.8-10.2); CARBON DIOXIDE LEVEL 39 MEQ/L (21-32); CHLORIDE LEVEL 93 MEQ/L (98-107); GLOMERULAR FILTRATION RATE > 60.0 (>49); GLUCOSE, FASTING 113 MG/DL (70-100); POTASSIUM SERUM 4.4 MEQ/L (3.5-5.1); SODIUM LEVEL 136 MEQ/L (136-145)
[2019-05-15] MEDS: BUDESONIDE 0.5 MG/2 ML INHALATION SUSPENSION INH SCH ×2 (07:48→20:38)
[2019-05-15] MEDS: TIOTROPIUM INHALER/CAPSULE (SPIRIVA) INH SCH (07:48)
[2019-05-15] MEDS: GABAPENTIN 100 MG CAP PO SCH ×3 (08:35→21:54)
[2019-05-15] MEDS: TAMSULOSIN 0.4 MG CAP PO SCH (08:35)
[2019-05-15] MEDS: guaiFENesin ER 600 MG TAB PO SCH ×2 (08:35→21:54)
[2019-05-15] MEDS: NYSTATIN 500,000 U/5 ML SUSP UDC SS SCH ×4 (08:35→21:54)
[2019-05-15] MEDS: methylPREDNISolone INJ 40 MG/1 ML VIAL (J2920) IV SCH ×2 (08:39→21:52)
--- NOTE | 2019-05-15 08:39 | REP ---
Clinical: Pneumothorax. Technique: PA and lateral. Comparison: 05/14/2019. Findings: Left-sided chest tube in stable position. Lung park demonstrate hyperinflation and changes related to COPD/emphysematous disease. No obvious residual pneumothorax noted. Bibasilar fibroatelectatic changes along with blunting to the posterior costophrenic angles may represent acute versus chronic pleural reactions unchanged. Subcutaneous emphysema along the left hemithorax again identified. Mediastinum and cardiac silhouette stable. Impression: 1. No obvious residual pneumothorax by x-ray evaluation. 2. Subcutaneous emphysema again noted. 3. Stable left chest tube. 4. Chronic COPD/emphysematous disease. Electronically Signed by Lam Sewell MD 05/15/2019 08:30 A
--- NOTE | 2019-05-15 08:58 | REP ---
Clinical: Pneumothorax. Technique: Axial noncontrast images from the thoracic inlet to the upper abdomen with coronal and sagittal re-formations. Comparison: 05/11/2019. Findings: Left-sided chest tube courses along the posterior periphery to the left upper hemithorax. Slivers of residual pneumothorax suggested along the anterior left apex, posterior left mid/upper lung zone, and anterior left base. Moderate amount of subcutaneous emphysema noted at the visualized left thoracic inlet and extending along the left chest wall to the visualized anterior left upper abdomen. Lung park demonstrate no advanced COPD/emphysematous changes. An ill-defined area of opacity with peripheral scarring/spiculation at the left apex (images 10 - 13) remains relatively stable while subtle areas of consolidation in the right base are again noted. 7 mm noncalcified nodule in the left lower lobe (image 84) and 5 mm noncalcified nodule in the periphery of the left upper lobe (image 32) remains stable. No effusion. No obvious significant adenopathy. Mediastinal structures including thoracic aorta, pulmonary vasculature and heart/pericardium appear relatively stable and without obvious acute pathology. Musculoskeletal structures are intact. Old healed left rib fractures again noted. Impression: 1. Small elements of residual left-sided pneumothorax suspected. 2. Advanced COPD/emphysematous changes. 3. Right basilar consolidation and small noncalcified pulmonary nodules identified. Electronically Signed by Lam Sewell MD 05/15/2019 08:50 A
[2019-05-15] MEDS: ENOXAPARIN 30 MG/0.3 ML SYR (J1650) SC SCH (09:58)
--- NOTE | 2019-05-15 14:09 | REP ---
Clinical: Central line placement. Comparison: 05/15/2019 at 07:42 a.m. Findings: Left subclavian catheter with tip in the SVC. Stable left chest tube. Relatively stable bilateral hyperinflation, subcutaneous emphysema and possible small residual left apical pneumothorax. No new acute consolidation. No effusion. Mediastinum and cardiac silhouette are normal / stable. Skeletal structures are intact. Impression: 1. Left subclavian catheter with tip in the SVC. 2. Otherwise essentially no significant change from prior examination. Electronically Signed by Lam Sewell MD 05/15/2019 02:00 P
--- NOTE | 2019-05-15 14:23 | RO ---
DATE OF PROCEDURE: 05/15/2019 PREPROCEDURE DIAGNOSES: Need for vascular access, alveolar pleural fistula. POSTPROCEDURE DIAGNOSES: Need for vascular access, alveolar pleural fistula. SURGEON: Dr. Gary Ritter MACHINE STITCHER: ANESTHESIA: PROCEDURE: Insertion of left subclavian central line. DESCRIPTION OF PROCEDURE: The patient was prepped and draped in the usual sterile fashion. He was placed in deep Trendelenburg and the infraclavicular fossa was infiltrated with 1% Lidocaine. The subclavian vein was found on the first pass and the wire was passed without difficulty. The tract was dilated and a triple lumen catheter was placed and secured to the chest wall with 3-0 silk suture. THe ports were aspirated and flushed. Chest x-ray is pending. The patient tolerated the procedure well.
--- NOTE | 2019-05-15 14:24 | IPN ---
DATE: 05/15/2019 Mr. Singh still has an air leak, albeit small. His pain is being well controlled at the chest tube insertion site. He looks a bit more short of breath today. His vital signs show a maximum temperature (t-max) of 97.6 with a heart rate that ranges between 73 and 116 in a sinus rhythm, respiratory rate of 16 to 22 without the use of accessory muscles, who is now pursed lip breathing. He is 98% saturated on 2 liters nasal cannula and blood pressure is ranging between 132/71 to 144/78. His intake and output the past 24 hours has been recorded as 1620 in and 2090 out for a negativity of 470 mL. He has put out 15 mL out of the chest tube and he still has a very small air leak with forceful coughing. Weight today is 46.6 kg, compared to 47 kg yesterday. PHYSICAL EXAMINATION: LUNGS: He has equal breath sounds on either side with coarse rhonchi, which clear with coughing. Percussion note is full to the diaphragm. There is some subcutaneous emphysema on the lateral chest wall. CARDIAC EXAM: Without murmurs, clicks, gallops or rubs. I cannot feel his point of maximum impulse (PMI). S1, S2 are normal. ABDOMEN: Soft, nontender. Bowel sounds positive. There is no hepatomegaly. No costovertebral angle tenderness. EXTREMITIES: Show no pretibial edema. No calf tenderness. No differential swelling of the upper extremities. SKIN: Warm, dry and perfused without cyanosis or mottling, including that of the nail beds and knees. NECK: Supple. There is no jugular venous distention. No subcutaneous emphysema. Trachea is midline. He is using the accessory muscles of respiration of his neck, however. MOUTH: Shows his mucous membranes to be pink and moist. Lips and commissures without lesions. There is no thrush. His mucous membranes are not pink and not red. EYES: Show his pupils to be equal and reactive. Extraocular motion intact. Sclerae anicteric. NEUROLOGIC: Shows II through XII intact with gross motor and gross sensation intact. Gait is not tested. PSYCHIATRIC: Shows him to be awake and alert, oriented times three with appropriate mood and affect and conversational. His white count is back up to 19.4 from 15.8 yesterday, hemoglobin and hematocrit are 13.6 and 42.7, respectively with a platelet count of 329. Chemistries show increased total CO2 of 39. The remainder of his electrolytes are normal with a BUN and creatinine of 28 and 0.8. Calcium is 8.8. His chest x-ray today shows increased subcutaneous emphysema in the axilla. Chest looks to be fully expanded to the chest wall. Chest tube is posterior and placement is unchanged. I did obtain a CT scan on him today. He still has a small pneumothorax apically. Inferiorly, the pneumothorax is resolved. I do suspect that he is probably leaking from the bullae in the upper chest. He has the same spiculated in the upper chest. IMPRESSION: 1. Alveolar pleural fistula, continuing. 2. Severe chronic obstructive pulmonary disease (COPD), Gold stage IV. 3. Spontaneous pneumothorax on the left, probably from bleb rupture. 4. 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 5. Chronic back pain. PLAN/DISCUSSION: I will do a blood patch today after placement of a central line. We will keep his chest tube clamped for 2 hours. I am concerned that the chest tube is directed posteriorly and I will place him in steep Trendelenburg for about 10 minutes until the blood clots.
--- NOTE | 2019-05-15 14:40 | RO ---
DATE OF PROCEDURE: 05/15/2019 PREPROCEDURE DIAGNOSIS: Alveolar-pleural fistula, continuing. POSTPROCEDURE DIAGNOSIS: Alveolar-pleural fistula, continuing. PROCEDURE: Blood patch pleurodesis via indwelling chest tube. SURGEON: Gary Ritter MD MERCHANDISE MANAGER: ANESTHESIA: DESCRIPTION OF PROCEDURE: 120 mL of blood was withdrawn from the central line, which had previously been placed. This was then reinjected into the chest tube. The patient was turned from side to side and placed in deep Trendelenburg position. The chest tube was clamped. It will remain clamped for 2 hours, so long as the patient remains relatively asymptomatic. He will be placed in deep Trendelenburg for the next 10 minutes so the blood has a chance to clot.
--- NOTE | 2019-05-15 14:59 | IPNPDOC ---
Subjective Date Seen The patient was seen on 05/15/19. Subjective Chief Complaint/HPI Mr. Singh is a 79 year old male admitted with a diagnosis of COPD, severe, Gold stage IV, dyspnea and respiratory distress. He is seen sitting up in bed this morning. Pt appears extremely short of breath, he does not reply in full sentences d/t the effort it takes him to breathe. Pt denied any new symptoms. He reported he feels slightly better today than when he 1st came to hospital. He is waiting to be taken for his procedure per Dr. Ritter. General: Denies: Chills, Night Sweats Constitutional: Denies: Chills, Fever, Night Sweats Eyes: Denies: Pain ENT: Denies: Head Aches Skin: Denies: Rash Pulmonary: Reports: Dyspnea, Cough Cardiovascular: Denies: Chest Pain, Palpitations Gastrointestinal: Denies: Abdominal Pain Musculoskeletal: Denies: Neck Pain, Back Pain, Joint Pain, Muscle Pain, Spasms Neurological: Denies: Confusion Psych: Reports: Mood Normal Objective Physical Examination General Exam: Positive: Alert, Cooperative, Mild Distress (significant effort to breathe ), Other (cachextic) Eye Exam: Positive: Conjunctiva & lids normal; Negative: Sclera icteric ENT Exam: Positive: Atraumatic Neck Exam: Positive: Supple; Negative: JVD, thyromegaly Chest Exam: Positive: Diminished, Other (barel chest, few scattered creackles. ) Heart Exam: Positive: Tachycardic, Regular Rhythm, Normal S1, Normal S2, Murmurs (2/6 blowing murmur ) Abdomen Exam: Positive: Normal bowel sounds, Soft; Negative: Tenderness, Hepatospenomegaly Extremity Exam: Negative: Clubbing, Cyanosis, Edema Psych Exam: Positive: Mental status NL, Mood NL, Oriented x 3 Assessment /Plan Assessment 68-year-old male with a history of severe GOLD stage IV Chronic obstructive pulmonary disease (COPD) with emphysema, history of nasal canula oxygen weaver pplementation with exertion and at rest who presented to the emergency department (ED) with worsening shortness of breath and respiratory distress. CT chest showed previously known emphysema and is seen as well as previously seen lung nodules. There was a moderate pneumothorax on the left size oc cupying perhaps 50% of the left hemithorax with possible very slight mediastinal shift. Patient was also in acute respiratory failure with hypercarbia with copd exacerbation. patient had a Chest tube placed urgently with relief of the pneumothorax on 05/08. However he still continues to leak air. His Acute respiratory failure has resolved. However still remains extremely dyspneic with minimal exertion with tachycardia and desaturations needing prolonged period of increased oxygen flow to recover. As per pulmonary that probably is his baseline with his advanced COPD. Left Pneumothorax s/p chest tube placement on 05/08 with persistent air leak; Dr. Ritter plans to place a patch today Dr Ritter following CT noted with increased infiltrates on the right started on ceftriaxone Pneumonia CT chest with new infiltrates. on ceftriaxone and azithromycin. Acute urinary retention in hospital Duoneb could be worsening it ,changed to albuterol and spiriva. bladder scan> 1000ml again on 05/13/19 Holley put back in. 1150 cc came out started on flomax will give trial of void after 1 week COPD exacerbation COPD/emphysema GOLD stage IV. Duoneb changed to albuterol and spiriva due to urinary retention. continues budesonide and methyl pred and azithromycin bicarb up today , will get ABG for tomorrow if it goes up further. CT chest with increased infiltrate on the right. S/P Acute respiratory failure with hypercarbia due to pneumothorax and COPD exacerbation now improved. Chronic back pain/Prior history of lumbar surgery will restart gabapentin at lower dose due to recent acute hypercarbia. History of alcohol use. history of tobacco dependency, quit in 2013. Severe malnutrition /pulmonary cachexia with severe muscle wasting and BMI of 17.6 Hypertension No history of HTN. However in hospital his bp pressures were high so started on amlodipine. Plan/VTE VTE Prophylaxis Ordered?: Yes VS, I&O, [facility] Vital Signs/I&O Vital Signs Date Time Temp Pulse Resp B/P (MAP) Pulse Ox O2 Delivery O2 Flow Rate FiO2 05/15/19 12:00 3.0 05/15/19 12:00 97.4 116 17 144/78 (100) 100 Nasal Cannula 05/09/19 02:00 30 I&O- Last 24 Hours up to 6 AM 05/15/19 05:59 Intake Total 1770 ml Output Total 1740 ml Balance 30 ml Laboratory Data 24H LABS Laboratory Tests 2 05/15/19 04:38: Nucleated Red Blood Cells % (auto) 0.0, Anion Gap 4L, Glomerular Filtration Rate > 60.0, Calcium Level 8.8 CBC/BMP Laboratory Tests 05/15/19 04:38 Microbiology Microbiology 05/11/19 Gram Stain - Final, Complete 05/11/19 Sputum Culture - Final, Complete Escherichia Coli Yeast Like Organism 05/08/19 Respiratory Virus Panel (PCR) ([facility]) - Final, Complete 05/07/19 Blood Culture - Final, Complete NO GROWTH AFTER 5 DAYS 05/07/19 Blood Culture - Final, Complete NO GROWTH AFTER 5 DAYS TOMÁS SEGURA PA-C May 15, 2019 14:59
--- NOTE | 2019-05-15 16:40 | REP ---
Clinical: Shortness of breath. Comparison: 05/15/2019 at 01:51 p.m.. Findings: Increasing subcutaneous emphysema involving the left hemithorax is noted. Left chest tube position is slightly varied when compared to prior examination although the tip again overlies the posterior left 7th rib. Small residual left apical pneumothorax cannot be excluded. Remainder examination appears stable. Impression: Slight variation to the left chest tube position. Significantly increased subcutaneous emphysema involving left hemithorax. Electronically Signed by Lam Sewell MD 05/15/2019 04:32 P
--- NOTE | 2019-05-15 20:12 | REP ---
Clinical: Shortness of breath. Increased crepitus. Comparison: 05/15/2019. Findings: Left chest tube in stable position. Small residual left apical pneumothorax cannot be excluded. Significant subcutaneous emphysema involving the left hemithorax is again noted and similar to prior examination. Remainder of the examination is relatively stable. No new acute process identified. Mediastinum and cardiac silhouette stable. Impression: Significant subcutaneous emphysema again noted. Electronically Signed by Lam Sewell MD 05/15/2019 08:04 P
[2019-05-15] MEDS ORDERED: MIDAZOLAM INJ 2 MG/2 ML VIAL (J2250) As Ordered ONE (20:21)
[2019-05-15] MEDS ORDERED: LIDOCAINE 1% MDV 20ML VIAL As Ordered ONE (20:21)
[2019-05-15] MEDS: amLODIPine 5 MG TAB PO SCH (21:00)
[2019-05-15] MEDS ORDERED: NORCO, ANEXSIA 5/325MG TABLET (HYDROcodone/ACETAMINOPHEN) PO PRN (21:15)
[2019-05-15] MEDS ORDERED: PERCOCET 5MG/325MG TAB PO PRN (21:15)
[2019-05-15] MEDS ORDERED: BISACODYL 10 MG SUPP PR PRN (21:15)
[2019-05-15] MEDS ORDERED: LIDOCAINE 1% MDV 20ML VIAL SC ONE (21:30)
[2019-05-15] MEDS ORDERED: MIDAZOLAM INJ 2 MG/2 ML VIAL (J2250) IV ONE (21:30)
[2019-05-15] MEDS: KETOROLAC 30 MG/ML VIAL (J1885) IV SCH (21:54)
[2019-05-15] MEDS: SODIUM CHLORIDE 0.9% INJ 10 ML SYR IV SCH (21:55)
[2019-05-16] VITALS (12 sets, daily range): BP systolic 119–155; BP diastolic 67–88
[2019-05-16] MEDS: amLODIPine 5 MG TAB PO SCH ×2 (00:23→20:23)
[2019-05-16] MEDS: cefTRIAXone SOD 1 GM in D5W MINI-BAG PLUS 50 ML IV SCH ×2 (00:24→12:27)
[2019-05-16] MEDS: ALBUTEROL SULFATE 2.5 MG/0.5 ML INH NEB SOLN NEB SCH ×6 (04:00→23:55)
[2019-05-16] MEDS: KETOROLAC 30 MG/ML VIAL (J1885) IV SCH ×4 (04:50→21:16)
[2019-05-16] MEDS: SODIUM CHLORIDE 0.9% INJ 10 ML SYR IV SCH ×3 (05:38→21:16)
[2019-05-16 06:05] LABS: HEMATOCRIT 40.5 % (42.0-52.0); HEMOGLOBIN 12.8 g/dl (13.5-17.5); MEAN CORPUSCULAR HEMOGLOBIN 29.9 pg (27.0-33.0); MEAN CORPUSCULAR HGB CONC 31.6 g/dl (32.0-36.5); MEAN CORPUSCULAR VOLUME 94.6 fl (80.0-96.0); PLATELET COUNT, AUTOMATED 322 10^3/uL (150-450); RED BLOOD COUNT 4.28 10^6/uL (4.30-6.10); WHITE BLOOD COUNT 19.2 10^3/uL (4.0-10.0)
[2019-05-16 06:21] LABS: BLOOD UREA NITROGEN 38 MG/DL (7-18); CALCIUM LEVEL 8.2 MG/DL (8.8-10.2); CARBON DIOXIDE LEVEL 36 MEQ/L (21-32); CHLORIDE LEVEL 95 MEQ/L (98-107); CREATININE FOR GFR 0.76 MG/DL (0.70-1.30); GLOMERULAR FILTRATION RATE > 60.0 (>49); GLUCOSE, FASTING 90 MG/DL (70-100); SODIUM LEVEL 136 MEQ/L (136-145)
[2019-05-16 07:02] LABS: ABG BASE EXCESS 7.5 (-2.0-2.0); ABG HCO3 34.2 MEQ/L (22.0-26.0); ABG O2 SATURATION 96.7 % (95.0-99.0); ABG PARTIAL PRESSURE CO2 56.9 mmHg (35.0-45.0); ABG PARTIAL PRESSURE O2 84.4 mmHg (75.0-100.0); ABG STANDARD HCO3 31.3 MEQ/L (22.0-26.0); ABG pH (ARTERIAL) 7.397 UNITS (7.350-7.450)
--- NOTE | 2019-05-16 07:56 | REP ---
Clinical: Chest tube placement. Technique: AP and cross-table lateral. Findings: Left-sided chest tube with tip extending to the anterior upper hemithorax. Marked amount of subcutaneous emphysema noted extending into the thoracic inlet, left shoulder and upper extremity. Small residual left pneumothorax cannot be excluded along with possible left lower lobe infiltrate/atelectasis. Left subclavian catheter with tip in the SVC. Cardiac silhouette is normal. Skeletal structures are stable. Impression: 1. Left-sided chest tube. 2. Marked amount of subcutaneous emphysema. 3. Possible left lower lobe atelectasis/infiltrate. Electronically Signed by Lam Sewell MD 05/16/2019 07:47 A
--- NOTE | 2019-05-16 07:57 | REP ---
Clinical: Pneumothorax. Technique: PA and lateral. Comparison: 05/15/2019 at 08:59 p.m. Findings: Left-sided chest tube in stable position. Left subclavian catheter with tip in the SVC. Marked subcutaneous emphysema similar to prior examination primarily involving the left side of the thorax although small amount into the right thoracic inlet is now suspected. Underlying lung park are relatively stable. Small residual left pneumothorax cannot definitively be excluded. Skeletal structures are stable. Impression: Findings similar to prior examination. Electronically Signed by Lam Sewell MD 05/16/2019 07:49 A
[2019-05-16] MEDS: DOCUSATE SODIUM 100 MG CAP PO SCH ×2 (08:14→20:21)
[2019-05-16] MEDS: MOM 30ML SUSPENSION UDC PO SCH (08:14)
[2019-05-16] MEDS: TAMSULOSIN 0.4 MG CAP PO SCH (08:21)
[2019-05-16] MEDS: guaiFENesin ER 600 MG TAB PO SCH ×2 (08:21→20:21)
[2019-05-16] MEDS: ENOXAPARIN 30 MG/0.3 ML SYR (J1650) SC SCH (08:21)
[2019-05-16] MEDS: NYSTATIN 500,000 U/5 ML SUSP UDC SS SCH ×4 (08:21→20:23)
[2019-05-16] MEDS: GABAPENTIN 100 MG CAP PO SCH ×3 (08:21→20:22)
[2019-05-16] MEDS: methylPREDNISolone INJ 40 MG/1 ML VIAL (J2920) IV SCH ×2 (08:22→20:23)
--- NOTE | 2019-05-16 08:40 | RO ---
DATE OF PROCEDURE: 05/15/2019 PREPROCEDURE DIAGNOSIS: Pleural fistula air leak uncontrolled. POSTPROCEDURE DIAGNOSIS: Pleural fistula air leak uncontrolled. SURGEON: Dr. Ritter. PROCEDURE: Insertion of left lateral anterior chest tube. Under satisfactory moderate sedation achieved with 3 mg of Versed, the patient was prepped and draped in the usual sterile fashion. The skin and subcutaneous tissue and pleural in and around the 5th intercostal space was infiltrated with 1% Lidocaine. Incision was made and carried and tract was dilated. A #20 chest tube was placed anteriorly from the lateral position. The chest tube was secured to the chest wall with a #2 Tevdek suture and connected to the Pleur-evac. The patient tolerated the procedure well and a chest x-ray is pending.
[2019-05-16] MEDS: BUDESONIDE 0.5 MG/2 ML INHALATION SUSPENSION INH SCH ×2 (11:34→20:51)
[2019-05-16] MEDS: TIOTROPIUM INHALER/CAPSULE (SPIRIVA) INH SCH (11:34)
--- NOTE | 2019-05-16 12:33 | IPNPDOC ---
Subjective Date Seen The patient was seen on 05/16/19. Subjective Chief Complaint/HPI Mr. Singh is a 79 year old male admitted with a diagnosis of COPD, severe, Gold stage IV, dyspnea and respiratory distress. He is seen sitting up in bed this morning. Pt appears extremely short of breath, he does not speak in full sentences d/t increased respiratory effort. Pt is disappointed the patch did not work, however he seems to be taking it in stride. Pt reported that he feels better today than he did yesterday. General: Denies: Chills, Night Sweats, Fatigue Constitutional: Denies: Chills, Fever, Night Sweats Eyes: Denies: Pain ENT: Denies: Head Aches Skin: Denies: Rash Pulmonary: Reports: Dyspnea, Cough Cardiovascular: Denies: Chest Pain, Palpitations Gastrointestinal: Denies: Abdominal Pain Musculoskeletal: Denies: Neck Pain, Back Pain, Joint Pain, Muscle Pain, Spasms Neurological: Denies: Confusion Psych: Reports: Mood Normal Objective Physical Examination General Exam: Positive: Alert, Cooperative, Mild Distress (significant effort to breathe ), Other (frail, malnutritioned, cachextic) Eye Exam: Positive: Conjunctiva & lids normal; Negative: Sclera icteric ENT Exam: Positive: Atraumatic Neck Exam: Positive: Supple; Negative: JVD, thyromegaly Chest Exam: Positive: Diminished, Other (barel chest, few scattered creackles. ) Heart Exam: Positive: Tachycardic, Regular Rhythm, Normal S1, Normal S2, Murmurs (2/6 blowing murmur ) Abdomen Exam: Positive: Normal bowel sounds, Soft; Negative: Tenderness, Hepatospenomegaly Extremity Exam: Negative: Clubbing, Cyanosis, Edema Psych Exam: Positive: Mental status NL, Mood NL, Oriented x 3 Assessment /Plan Assessment 68-year-old male with a history of 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 CT chest showed previously known emphysema and is seen as well as previously seen lung nodules. There was a moderate pneumothorax on the left size occupying perhaps 50% of the left hemithorax with possible very slight mediastinal shift. Patient was also in acute respiratory failure with hypercarbia with copd exacerbation. patient had a Chest tube placed urgently with relief of the pneumothorax on 05/08. However he still continues to leak air. His Acute respiratory failure has resolved. However still remains extremely dyspneic with minimal exertion with tachycardia and desaturations needing prolonged period of increased oxygen flow to recover. As per pulmonary that probably is his baseline with his advanced COPD. Left Pneumothorax s/p chest tube placement on 05/08 with persistent air leak CT noted with increased infiltrates on the right started on ceftriaxone Blood patch attempted 05/15 was unsuccessful; pt also has increased SubQ Emphysema CXR 05/16/19 - L sided chest tube in stable position; otherwise the exam is largely unchanged from prior exam Continued management per Dr. Ritter Pneumonia CT chest with new infiltrates. on ceftriaxone and azithromycin. Acute urinary retention in hospital Duoneb could be worsening it ,changed to albuterol and spiriva. bladder scan> 1000ml again on 05/13/19 Holley put back in. 1150 cc came out started on flomax will give trial of void after 1 week COPD exacerbation COPD/emphysema GOLD stage IV. Duoneb changed to albuterol and spiriva due to urinary retention. continues budesonide and methyl pred and azithromycin Bicarb up and ABG elevated today - continued management per pulm CT chest with increased infiltrate on the right. S/P Acute respiratory failure with hypercarbia due to pneumothorax and COPD exacerbation now improved. Chronic back pain/Prior history of lumbar surgery will restart gabapentin at lower dose due to recent acute hypercarbia. History of alcohol use. history of tobacco dependency, quit in 2013. Severe malnutrition /pulmonary cachexia with severe muscle wasting and BMI of 17.6 Hypertension No history of HTN. However in hospital his blood pressures were high so started on amlodipine. Plan/VTE VTE Prophylaxis Ordered?: Yes VS, I&O, 24H, Fishbone Vital Signs/I&O Vital Signs Date Time Temp Pulse Resp B/P (MAP) Pulse Ox O2 Delivery O2 Flow Rate FiO2 05/16/19 08:00 3.0 05/16/19 07:52 99.2 77 24 150/75 (100) 98 Nasal Cannula I&O- Last 24 Hours up to 6 AM 05/16/19 06:00 Intake Total 890 ml Output Total 1276 ml Balance -386 ml Laboratory Data 24H LABS Laboratory Tests 2 05/16/19 04:47: Nucleated Red Blood Cells % (auto) 0.0, Anion Gap 5L, Glomerular Filtration Rate > 60.0, Calcium Level 8.2L 05/16/19 06:56: Blood Gas Bicarbonate Standard 31.3H, Arterial Blood pH 7.397, Arterial Blood Partial Pressure CO2 56.9H, Arterial Blood Partial Pressure O2 84.4, Arterial Blood Total CO2 36.0H, Arterial Blood HCO3 34.2H, Arterial Blood Base Excess 7.5H, Arterial Blood Oxygen Saturation 96.7 CBC/BMP Laboratory Tests 05/16/19 04:47 Microbiology Microbiology 05/11/19 Gram Stain - Final, Complete 05/11/19 Sputum Culture - Final, Complete Escherichia Coli Yeast Like Organism 05/08/19 Respiratory Virus Panel (PCR) ([facility]) - Final, Complete 05/07/19 Blood Culture - Final, Complete NO GROWTH AFTER 5 DAYS 05/07/19 Blood Culture - Final, Complete NO GROWTH AFTER 5 DAYS TOMÁS SEGURA PA-C May 16, 2019 12:33
--- NOTE | 2019-05-16 13:19 | IPN ---
DATE: 05/16/2019 Yesterday after undertaking a blood patch, Mr. Singh's subcutaneous emphysema became progressively worse and he became more short of breath. I suspect the blood patch clotted in and around the chest tube catheter that was in. I therefore brought him to the intensive care unit where I placed an anterior tube laterally. While placing the tube, I could feel the tube was running into adhesions and it eventually went posteriorly where it now sits. He has a small air leak and his subcutaneous emphysema is better today than it was yesterday. His vital signs show a T-max of 99.2 with a heart rate that ranges between 63 and 78 and is sinus rhythm, respiratory rate of 24 to 22 with the use of neck accessory muscles with pursed lip breathing. He is 99% saturated on 3 liters nasal cannula, and his blood pressure is ranging between 150/75 to 119/81. His intake and output the past 24 hours has been recorded as 840 in and 1738 out for a negativity of 898 mL. He has put 13 mL out the chest tube and he has a small air leak with forceful coughing. Weight today is 46.5 kg, compared to 46.6 kg yesterday. PHYSICAL EXAMINATION: He has subcutaneous emphysema over the left anterior chest into the base of the neck and down to his forearm on his left side. On auscultation I can only definitively hear the crackles of subcutaneous emphysema on the left. Right side shows decreased sounds without wheezes, rhonchi or rales, however. Percussion note is full to the diaphragm with hyperaeration on the left. CARDIAC EXAM: Without murmurs, clicks, gallops or rubs. I cannot feel his point of maximum impulse (PMI). S1, S2 are normal. ABDOMEN: Soft, nontender. Bowel sounds positive. There is no hepatomegaly. No costovertebral angle tenderness. EXTREMITIES: Show no pretibial edema. No calf tenderness. There is more swelling from subcutaneous emphysema on the left than the right. SKIN: Warm, dry and perfused without cyanosis or mottling, including that of the nail beds and knees. NECK: Supple. There is subcutaneous emphysema at the base of the neck on the left side. There is no jugular venous distention (JVD). Trachea is midline. MOUTH: Shows his mucous membranes to be pink and moist. Lips and commissures without lesions. His thrush is resolving. EYES: Show his pupils to be equal and reactive. Extraocular motions are intact. Sclera nonicteric. NEUROLOGIC: Shows II through XII intact along with gross motor and gross sensation intact. Gait is not tested. PSYCHIATRIC: Shows him to be awake and alert, oriented times three with appropriate mood and affect and conversational. His white count is back up to 19.2, unchanged from yesterday with hemoglobin and hematocrit are 12.8 and 40.5, slightly down from yesterday's of 13.6 and 42.7. The drop is probably secondary to withdrawal of intravascular volume from his blood patch. Platelet count is 322. There is no differential. His electrolytes show increased total CO2 of 36, but better than it was yesterday at 39. BUN and creatinine are 38 and 0.76 and he remains on Toradol. Glucose is 90 with a calcium of 8.2. His chest x-ray today shows the chest tube heading posteriorly after taking an initial anterior course. There is increased subcutaneous emphysema up into the neck and into the arm. I do not see a line consistent with a pneumothorax. Costophrenic angles are sharp but diaphragms are flat. He is hyperexpanded on both sides. IMPRESSION: 1. Alveolar pleural fistula, somewhat under control with placement of a larger bore chest tube, #20. 2. GOLD IV chronic obstructive pulmonary disease (COPD). 3. Spontaneous pneumothorax on the left, probably from bleb or bulla rupture. 4. 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 5. Chronic back pain. PLAN/DISCUSSION: I am running into a real problem with regard to sealing the air leak. Judging from his CT scan, he has a large bulla in the left upper apex. I suspect this is where the leak is emanating. The problem is these bulla are also adherent to the chest wall and I cannot get the tube into an optimum position at the cupula. I am concerned about placing an anterior superior tube through the first intercostal space as his lung is probably adherent there and I would be entering the lung rather than the pleural space. What lung is left is merely bulla and I would convert him from an alveolar pleural fistula to a bronchopleural fistula. I think that we are going to have to wait this out. Again, I do not think I can take him to the operating room safely as he would not tolerate one lung anesthesia. I will look into placing a permanent Heimlich valve, but i would rather reserve that until enough time has passed for this air leak is given a chance to stop on its own. As noted before, this is a very difficult situation in that I cannot definitively mechanically fix the problems.
[2019-05-17] VITALS: BP 144/76
[2019-05-17] MEDS: cefTRIAXone SOD 1 GM in D5W MINI-BAG PLUS 50 ML IV SCH ×3 (00:21→23:51)
[2019-05-17] MEDS: ALBUTEROL SULFATE 2.5 MG/0.5 ML INH NEB SOLN NEB SCH ×5 (03:48→20:32)
[2019-05-17 04:00] VITALS: BP 141/78
[2019-05-17] MEDS: KETOROLAC 30 MG/ML VIAL (J1885) IV SCH ×4 (04:38→21:17)
[2019-05-17] MEDS: SODIUM CHLORIDE 0.9% INJ 10 ML SYR IV SCH ×3 (05:23→20:47)
[2019-05-17 05:53] LABS: HEMATOCRIT 37.2 % (42.0-52.0); HEMOGLOBIN 12.2 g/dl (13.5-17.5); MEAN CORPUSCULAR HGB CONC 32.8 g/dl (32.0-36.5); MEAN CORPUSCULAR VOLUME 91.6 fl (80.0-96.0); PLATELET COUNT, AUTOMATED 303 10^3/uL (150-450); RED BLOOD COUNT 4.06 10^6/uL (4.30-6.10); WHITE BLOOD COUNT 16.4 10^3/uL (4.0-10.0)
[2019-05-17 06:11] LABS: BLOOD UREA NITROGEN 40 MG/DL (7-18); CALCIUM LEVEL 8.4 MG/DL (8.8-10.2); CARBON DIOXIDE LEVEL 37 MEQ/L (21-32); CHLORIDE LEVEL 92 MEQ/L (98-107); CREATININE FOR GFR 0.76 MG/DL (0.70-1.30); GLOMERULAR FILTRATION RATE > 60.0 (>49); GLUCOSE, FASTING 108 MG/DL (70-100); POTASSIUM SERUM 4.4 MEQ/L (3.5-5.1); SODIUM LEVEL 133 MEQ/L (136-145)
[2019-05-17 07:48] VITALS: BP 139/77
[2019-05-17] MEDS: BUDESONIDE 0.5 MG/2 ML INHALATION SUSPENSION INH SCH ×2 (07:53→20:33)
[2019-05-17] MEDS: TIOTROPIUM INHALER/CAPSULE (SPIRIVA) INH SCH (07:53)
--- NOTE | 2019-05-17 08:01 | REP ---
Clinical: Pneumothorax. Technique: PA and lateral. Comparison: 05/16/2019. Findings: Left chest tube in stable position. Diffuse subcutaneous emphysema (left greater than right) again noted. Underlying lung park are essentially unchanged. No obvious pneumothorax identified. No definite effusion. Mediastinum and cardiac silhouette stable. Skeletal structures stable. Impression: 1. No significant change from prior examination. Electronically Signed by Lam Sewell MD 05/17/2019 07:53 A
[2019-05-17] MEDS: DOCUSATE SODIUM 100 MG CAP PO SCH ×2 (09:00→20:46)
[2019-05-17] MEDS: MOM 30ML SUSPENSION UDC PO SCH (09:00)
[2019-05-17] MEDS: GABAPENTIN 100 MG CAP PO SCH ×3 (09:19→20:46)
[2019-05-17] MEDS: guaiFENesin ER 600 MG TAB PO SCH ×2 (09:19→20:46)
[2019-05-17] MEDS: TAMSULOSIN 0.4 MG CAP PO SCH (09:19)
[2019-05-17] MEDS: NYSTATIN 500,000 U/5 ML SUSP UDC SS SCH ×4 (09:19→20:45)
[2019-05-17] MEDS: ENOXAPARIN 30 MG/0.3 ML SYR (J1650) SC SCH (09:20)
[2019-05-17] MEDS: methylPREDNISolone INJ 40 MG/1 ML VIAL (J2920) IV SCH ×2 (09:20→20:45)
[2019-05-17 11:38] VITALS: BP 155/81
--- NOTE | 2019-05-17 11:47 | IPNPDOC ---
Subjective Date Seen The patient was seen on 05/17/19. Subjective Chief Complaint/HPI Mr. Singh is a 79 year old male admitted with a diagnosis of COPD, severe, Gold stage IV, dyspnea and respiratory distress. He is seen sitting up in bed this morning. Pt appears extremely short of breath, he does not speak in full sentences d/t increased respiratory effort. Pt continues to report that his breathing is better than when he was first admitted. He feels he is doing 'fairly well' with all things considered. General: Reports: Normal Appetite; Denies: Chills, Night Sweats, Fatigue Constitutional: Denies: Chills, Fever, Night Sweats Eyes: Denies: Pain ENT: Denies: Head Aches Skin: Denies: Rash, Lesions Pulmonary: Reports: Dyspnea, Cough Cardiovascular: Denies: Chest Pain, Palpitations, Lt Headedness Gastrointestinal: Denies: Abdominal Pain Musculoskeletal: Denies: Neck Pain, Back Pain, Joint Pain, Muscle Pain, Spasms Neurological: Denies: Confusion Psych: Reports: Mood Normal Objective Physical Examination General Exam: Positive: Alert, Cooperative, Mild Distress (significant effort to breathe ), Other (frail, malnutritioned, cachextic) Eye Exam: Positive: Conjunctiva & lids normal; Negative: Sclera icteric ENT Exam: Positive: Atraumatic Neck Exam: Positive: Supple; Negative: JVD, thyromegaly Chest Exam: Positive: Diminished, Other (barel chest); Negative: Clear to auscultation (superficial crepitus in L arm & chest that crosses the midline ) Heart Exam: Positive: Tachycardic, Regular Rhythm, Normal S1, Normal S2, Murmurs (2/6 blowing murmur ) Abdomen Exam: Positive: Soft; Negative: Normal bowel sounds (crepirtus extends over upper abdomen ), Tenderness, Hepatospenomegaly Extremity Exam: Positive: Normal pulses; Negative: Clubbing, Cyanosis, Edema, Tenderness, Swelling Skin Exam: Positive: Nl turgor and temperature Neuro Exam: Negative: Normal Speech (speaks in short spurts ) Psych Exam: Positive: Mental status NL, Mood NL, Oriented x 3 Assessment /Plan Assessment 68-year-old male with a history of 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 CT chest showed previously known emphysema and is seen as well as previously seen lung nodules. There was a moderate pneumothorax on the left size occupying perhaps 50% of the left hemithorax with possible very slight mediastinal shift. Patient was also in acute respiratory failure with hypercarbia with copd exacerbation. patient had a Chest tube placed urgently with relief of the pneumothorax on 05/08. However he still continues to leak air. His Acute respiratory failure has resolved. However still remains extremely dyspneic with minimal exertion with tachycardia and desaturations needing prolonged period of increased oxygen flow to recover. As per pulmonary that probably is his baseline with his advanced COPD. Left Pneumothorax s/p chest tube placement on 05/08, with SubQ Emphysema with persistent air leak CT noted with increased infiltrates on the right started on ceftriaxone. Blood patch attempted 05/15 was unsuccessful; pt also has increased SubQ Em physema CXR 05/16/19 - L sided chest tube in stable position; otherwise the exam is largely unchanged from prior exam Continued management per Dr. Ritter 05/17/19 Rocephin continued (re: question from nursing) as pt responding well clinically to abx, but has not returned to baseline Pneumonia CT chest with new infiltrates. on ceftriaxone and azithromycin final sputum culture result: E.coli with sensitivity to Rocephin Acute urinary retention in hospital Duoneb could be worsening it ,changed to albuterol and spiriva. bladder scan> 1000ml again on 05/13/19 Holley put back in. 1150 cc came out started on flomax will give trial of void after 1 week COPD exacerbation COPD/emphysema GOLD stage IV. Duoneb changed to albuterol and Spiriva due to urinary retention. continues budesonide and methyl pred and azithromycin Bicarb and ABG elevated - continued management per pulm CT chest with increased infiltrate on the right. S/P Acute respiratory failure with hypercarbia due to pneumothorax and COPD exacerbation now improved. Chronic back pain/Prior history of lumbar surgery will restart gabapentin at lower dose due to recent acute hypercarbia. History of alcohol use. history of tobacco dependency, quit in 2013. Severe malnutrition /pulmonary cachexia with severe muscle wasting and BMI of 17.6 Hypertension No history of HTN. However in hospital his blood pressures were high so started on amlodipine. Plan/VTE VTE Prophylaxis Ordered?: Yes Attending Note I have personally performed a face to face diagnostic evaluation on this patient. I have reviewed and agree with the care plan documented above. VS, I&O, 24H, Fishbone Vital Signs/I&O Vital Signs Date Time Temp Pulse Resp B/P (MAP) Pulse Ox O2 Delivery O2 Flow Rate FiO2 05/17/19 08:00 3.0 05/17/19 07:48 96.8 69 18 139/77 (97) 96 Nasal Cannula I&O- Last 24 Hours up to 6 AM 05/17/19 06:00 Intake Total 346 ml Output Total 1280 ml Balance -934 ml Laboratory Data 24H LABS Laboratory Tests 2 05/17/19 05:22: Nucleated Red Blood Cells % (auto) 0.0, Anion Gap 4L, Glomerular Filtration Rate > 60.0, Calcium Level 8.4L CBC/BMP Laboratory Tests 05/17/19 05:22 Microbiology Microbiology 05/11/19 Gram Stain - Final, Complete 05/11/19 Sputum Culture - Final, Complete Escherichia Coli Yeast Like Organism 05/08/19 Respiratory Virus Panel (PCR) ([facility]) - Final, Complete 05/07/19 Blood Culture - Final, Complete NO GROWTH AFTER 5 DAYS 05/07/19 Blood Culture - Final, Complete NO GROWTH AFTER 5 DAYS TOMÁS SEGURA PA-C May 17, 2019 11:47 LIDIA AGUIRRE MD May 24, 2019 06:02
[2019-05-17] MEDS: D5W/0.9% SODIUM CHLORIDE 1,000 ML IV SCH (12:40)
--- NOTE | 2019-05-17 13:28 | IPN ---
DATE: 05/17/2019 Mr. Singh is seemingly doing better today. He is not pursed lip breathing. He is using some accessory muscles of respiration in his neck. I do not see an air leak today, although his nurse says that she has seen an intermittent air leak throughout the morning. His vital signs show a maximum temperature (t-max) of 96.8 with a heart rate that ranges between 74 and 69 in a sinus rhythm, respiratory rate of 16 to 18 without the use of accessory muscles, who is 96 to 97% saturated on 3 liters nasal cannula. Blood pressure is ranging between 155/81 to 139/77. Intake and output the past 24 hours has been recorded as 646 in and 1301 out for a negativity of 655 mL. He has put out 6 mL from the chest tube. He has put out 1295 mL in urine. Weight today is 48 kg compared to 46.5 kg yesterday. PHYSICAL EXAMINATION: LUNGS: I do not hear any wheezes, rhonchi or rales on the right side. On the left side, he shows crackles of subcutaneous emphysema but again, on listening carefully underneath, I do not hear any other adventitious breath sounds. Percussion note is full to the diaphragm and hyperresonant on the left. There is still subcutaneous emphysema over the pectoralis muscle and on the lateral chest wall but it is less than it was yesterday. It still goes down the left arm down to the left forearm. CARDIAC EXAM: Without murmurs, clicks, gallops or rubs. I cannot feel his point of maximum impulse (PMI). S1, S2 are normal. ABDOMEN: Soft, nontender. Bowel sounds positive. There is no hepatomegaly. No costovertebral angle tenderness. EXTREMITIES: Show no pretibial edema. No calf tenderness. There is differential swelling of the left and right upper extremities secondary to the subcutaneous emphysema on the left. SKIN: Warm, dry and perfused. He does have some mottling in and around the knees. There is no cyanosis of the nail beds. NECK: Supple. There is no jugular venous distention. No subcutaneous emphysema. Trachea is midline. MOUTH: Shows his mucous membranes to be pink and moist. Lips and commissures without lesions. The thrush is resolving. EYES: Show his pupils to be equal and reactive. Extraocular motion intact. Sclerae anicteric. NEUROLOGIC: Shows II through XII intact with gross motor and gross sensation intact. Gait is not tested. PSYCHIATRIC: Shows him to be awake and alert, oriented times three with appropriate mood and affect and conversational. His white count today is 16.4, down from 19.2 yesterday. Hemoglobin and hematocrit are 12.2 and 37.2, reflecting his blood patch. Platelet count is 303. There is no differential. Chemistries show a marginally low sodium of 133 with a total CO2 of 37. BUN is now up to 40 with a creatinine of 0.76. Glucose is 108 with a calcium of 8.4. His chest x-ray shows his lung fully expanded to the chest wall. He still has significant subcutaneous emphysema in the left chest and now at the top of the right chest. Chest tube is heading posteriorly, which was discussed yesterday. Costophrenic angles are sharp. The diaphragms are flat. There does seem to be an area of either infiltrate or compression in the medial aspect of the chest, which is not in a lobar distribution. It may just be a full hilum. IMPRESSION: 1. Alveolar pleural fistula, now controlled with intermittent air leak. 2. 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 3. Spontaneous pneumothorax on the left, secondary to a bleb rupture. 4. Bullous disease left upper lobe. 5. Chronic back pain. PLAN/DISCUSSION: I am gratified that I did not see an air leak today, although the nursing staff has seen an intermittent one throughout the morning. Hopefully this all goes well and the air leak is going to eventually stop. I will continue to wait this out. 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 His BUN is consistently going up and I will start some IV hydration on him.
[2019-05-17 15:37] VITALS: BP 143/82
[2019-05-17 20:00] VITALS: BP 133/81
[2019-05-17] MEDS: amLODIPine 5 MG TAB PO SCH (20:45)
[2019-05-18] VITALS: BP 125/71
[2019-05-18] MEDS: ALBUTEROL SULFATE 2.5 MG/0.5 ML INH NEB SOLN NEB SCH ×6 (00:34→23:20)
[2019-05-18] MEDS: D5W/0.9% SODIUM CHLORIDE 1,000 ML IV SCH ×2 (02:08→16:03)
[2019-05-18 04:00] VITALS: BP 141/70
[2019-05-18] MEDS: KETOROLAC 30 MG/ML VIAL (J1885) IV SCH ×4 (04:01→21:34)
[2019-05-18 04:52] LABS: MEAN CORPUSCULAR HEMOGLOBIN 29.6 pg (27.0-33.0); MEAN CORPUSCULAR HGB CONC 31.6 g/dl (32.0-36.5); MEAN CORPUSCULAR VOLUME 93.8 fl (80.0-96.0); PLATELET COUNT, AUTOMATED 319 10^3/uL (150-450); RED BLOOD COUNT 4.05 10^6/uL (4.30-6.10); WHITE BLOOD COUNT 20.1 10^3/uL (4.0-10.0)
[2019-05-18 05:23] LABS: BLOOD UREA NITROGEN 32 MG/DL (7-18); CALCIUM LEVEL 8.3 MG/DL (8.8-10.2); CARBON DIOXIDE LEVEL 34 MEQ/L (21-32); CHLORIDE LEVEL 95 MEQ/L (98-107); GLOMERULAR FILTRATION RATE > 60.0 (>49); GLUCOSE, FASTING 117 MG/DL (70-100); POTASSIUM SERUM 4.7 MEQ/L (3.5-5.1); SODIUM LEVEL 135 MEQ/L (136-145)
[2019-05-18] MEDS: SODIUM CHLORIDE 0.9% INJ 10 ML SYR IV SCH ×3 (06:00→21:34)
[2019-05-18] MEDS: BUDESONIDE 0.5 MG/2 ML INHALATION SUSPENSION INH SCH ×2 (07:11→19:32)
[2019-05-18] MEDS: TIOTROPIUM INHALER/CAPSULE (SPIRIVA) INH SCH (07:11)
[2019-05-18 07:36] VITALS: BP 154/77
[2019-05-18] MEDS: NYSTATIN 500,000 U/5 ML SUSP UDC SS SCH ×4 (08:34→20:12)
[2019-05-18] MEDS: ENOXAPARIN 30 MG/0.3 ML SYR (J1650) SC SCH (08:34)
[2019-05-18] MEDS: methylPREDNISolone INJ 40 MG/1 ML VIAL (J2920) IV SCH ×2 (08:34→20:12)
[2019-05-18] MEDS: MOM 30ML SUSPENSION UDC PO SCH (08:34)
[2019-05-18] MEDS: GABAPENTIN 100 MG CAP PO SCH ×3 (08:34→20:11)
[2019-05-18] MEDS: TAMSULOSIN 0.4 MG CAP PO SCH (08:34)
[2019-05-18] MEDS: DOCUSATE SODIUM 100 MG CAP PO SCH ×2 (08:34→20:11)
[2019-05-18] MEDS: guaiFENesin ER 600 MG TAB PO SCH ×2 (08:35→20:11)
--- NOTE | 2019-05-18 09:13 | REP ---
Clinical: Pneumothorax. Technique: PA and lateral. Comparison: 05/17/2019. Findings: Left chest tube in stable position. Subcutaneous emphysema essentially unchanged (left greater than right). Mediastinum and cardiac silhouette are normal. Underlying lung park without obvious acute consolidation, definite effusion, or obvious residual pneumothorax. Skeletal structures stable. Impression: Subcutaneous emphysema unchanged. No obvious new acute process. Electronically Signed by Lam Sewell MD 05/18/2019 09:05 A
[2019-05-18 11:43] VITALS: BP 166/77
[2019-05-18] MEDS: cefTRIAXone SOD 1 GM in D5W MINI-BAG PLUS 50 ML IV SCH (12:02)
--- NOTE | 2019-05-18 12:10 | REP ---
Clinical: Pneumothorax. Technique: Axial noncontrast images from the thoracic inlet to the upper abdomen with coronal and sagittal re-formations. Comparison: 05/15/2019. Findings: Marked, extensive subcutaneous emphysema involves the visualized lower neck, the thoracic inlet, and diffusely involves the left hemithorax with extension into the left shoulder and visualized left upper extremity. A left-sided chest tube is identified extending along the posterior aspect of the left upper pleural space and portions of the intrathoracic chest tube demonstrate elements of material filling the lumen and chest tube which may warrant evaluation. The lung park demonstrate advanced COPD/emphysematous changes with a relatively small residual left apical pneumothorax. Ill-defined area of nodular opacity at the left lung apex, 7 mm nodule in the left lower lobe (image 85), area of mass / consolidation at the right base measuring roughly 3.2 cm diameter along with scattered elements of fibrosis and scarring appear essentially unchanged. No obvious new acute process is identified. Mediastinum including the thoracic aorta, pulmonary vasculature, and heart/pericardium remains stable. Tracheobronchial tree is relatively patent and again demonstrates chronic bronchiectasis along with small amount of layering fluid at the level of the obdulia. Old healed rib fractures noted. Impression: 1. Extensive subcutaneous emphysema increased from prior examination. 2. Left-sided chest tube as described above. 3. Chronic relatively stable pleuroparenchymal changes. 4. Small residual left apical pneumothorax. Electronically Signed by Lam Sewell MD 05/18/2019 12:01 P
--- NOTE | 2019-05-18 12:22 | IPN ---
DATE: 05/18/2019 Mr. Singh has a one bubble air leak on multiple forceful coughs. Nursing staff has noted it today again. His subcutaneous emphysema is better. His vital signs show a maximum temperature (t-max) of 97.4 with a heart rate that ranges between 69 and 74 in a sinus rhythm, respiratory rate of 18 to 20 without the use of accessory muscles, who is 97% to 99% saturated on 3 liters nasal cannula and whose blood pressure is ranging between 125/71 to 154/77. His intake and output the past 24 hours has been recorded as 1515 in and 1137 out for a positivity of 375 mL. His by mouth intake has been 1040 mL with IV of 475. I placed him on IV D5 normal saline yesterday at 75 mL/hr secondary to his rising BUN. He has put 12 mL out the chest tube. He weighs 47.9 kg today compared to 48 kg yesterday. On physical examination, I can hear his left lung sounds much better with decreasing crackles and subcutaneous emphysema. I hear no wheezes, rhonchi or rales, although breath sounds are equally diminished on either side. Percussion notes are full to the diaphragm. Cardiac exam is without murmurs, clicks, gallops or rubs. I cannot feel his point of maximum impulse (PMI). S1, S2 are normal. Abdomen is soft, nontender. Bowel sounds are positive. There is no hepatomegaly. No costovertebral angle tenderness. Extremities show no pretibial edema. No calf tenderness. There is slight differential swelling of the upper extremities secondary to the subcutaneous emphysema, but that is improving. Mouth shows his mucous membranes to be pink and moist. Lips and commissures without lesions. He has return of his thrush and I will continue him on Nystatin swish and swallow. Eyes shows his pupils equal and reactive. Extraocular movements intact. Sclerae anicteric. Neurologic shows II through XII intact along with gross motor and gross sensation intact. Gait is not tested. Psychiatric shows him to be awake and alert, oriented times three, with appropriate mood and affect and conversational. He is naturally frustrated by the slowness of his recovery. His white count today is up to 20.1 from 16.4 yesterday. Hemoglobin and hematocrit is 12.0 and 38.0 respectively with a platelet count of 319. Chemistries show a sodium of 135 with a total CO2 which is 34 and with a BUN and creatinine of 32 and 0.7 compared to 40 and 0.76 yesterday. Calcium is 8.3 with a glucose of 107. His chest x-ray today shows the lung fully expanded to the chest wall with the subcutaneous emphysema dissipating. I do not see a pneumothorax, although it is difficult to interpret secondary to the overlying emphysema. He still looks as though he has prominent hilar vessels, although I cannot be sure if this represents an infiltrative process. Costophrenic angles are sharp with flat diaphragms. Chest tube is heading posteriorly as it has been throughout the course. Central line is in good place. IMPRESSION: 1. Alveolar pleural fistula, controlled with an intermittent air leak. 2. 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 3. Spontaneous pneumothorax on the left, secondary to bleb rupture. 4. Bullous disease left upper lobe. 5. Chronic back pain. PLAN AND DISCUSSION: We will continue to hydrate him. I have turned the suction down to 20 cm of water yesterday. He just had a one bubble air leak with multiple forceful coughs. I will obtain a CT scan to see the distribution of the pneumothorax as I cannot tell from the chest x-ray if he has one left.
--- NOTE | 2019-05-18 14:35 | IPNPDOC ---
Subjective Date Seen The patient was seen on 05/18/19. Subjective Chief Complaint/HPI Mr. Singh is a 79 year old male admitted with a diagnosis of COPD, severe, Gold stage IV, dyspnea and respiratory distress. He is seen heading for a CT this morning. Pt continues to be extremely short of breath, he does not speak in full sentences d/t increased respiratory effort. Pt continues to deny any new or worsening symptoms. General: Reports: Normal Appetite; Denies: Chills, Night Sweats, Fatigue Constitutional: Denies: Chills, Fever, Night Sweats Eyes: Denies: Pain ENT: Denies: Head Aches Skin: Denies: Rash Pulmonary: Reports: Dyspnea, Cough Cardiovascular: Denies: Chest Pain, Palpitations Gastrointestinal: Denies: Vomiting, Abdominal Pain, Diarrhea Musculoskeletal: Denies: Neck Pain, Back Pain, Joint Pain, Muscle Pain, Spasms Neurological: Denies: Weakness, Numbness, Change in speech, Confusion Psych: Reports: Mood Normal Objective Physical Examination General Exam: Positive: Alert, Cooperative, Mild Distress (significant effort to breathe ), Other (frail, malnutritioned, cachextic) Eye Exam: Positive: Conjunctiva & lids normal, Sclera icteric ENT Exam: Positive: Atraumatic Neck Exam: Positive: Supple; Negative: JVD, thyromegaly Chest Exam: Positive: Clear to auscultation (superficial crepitus in L arm & chest that crosses the midline ), Diminished (b/l lungs ), Other (barrel chest) Heart Exam: Positive: Tachycardic, Regular Rhythm, Normal S1, Normal S2, Murmurs (2/6 blowing murmur ) Abdomen Exam: Positive: Soft; Negative: Normal bowel sounds (crepirtus extends over upper abdomen ), Tenderness, Hepatospenomegaly Extremity Exam: Positive: Normal pulses; Negative: Clubbing, Cyanosis, Edema, Tenderness, Swelling Skin Exam: Positive: Nl turgor and temperature Neuro Exam: Negative: Normal Speech (speaks in short spurts ) Psych Exam: Positive: Mental status NL, Mood NL, Oriented x 3 Assessment /Plan Assessment 68-year-old male with a history of 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 CT chest showed previously known emphysema and is seen as well as previously seen lung nodules. There was a moderate pneumothorax on the left size occupying perhaps 50% of the left hemithorax with possible very slight mediastinal shift. Patient was also in acute respiratory failure with hypercarbia with copd exacerbation. patient had a Chest tube placed urgently with relief of the pneumothorax on 05/08. However he still continues to leak air. His Acute respiratory failure has resolved. However still remains extremely dyspneic with minimal exertion with tachycardia and desaturations needing prolonged period of increased oxygen flow to recover. As per pulmonary that probably is his baseline with his advanced COPD. 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 Blood patch attempted 05/15 was unsuccessful; pt also has increased SubQ Emphysema CXR 05/16/19 - L sided chest tube in stable position; otherwise the exam is largely unchanged from prior exam 05/17/19 Rocephin continued (re: question from nursing) as pt responding well clinically to abx, but has not returned to baseline 05/18/[address] Impression: "1. Extensive subcutaneous emphysema increased from prior examination. 2. Left-sided chest tube as described above. 3. Chronic relatively stable pleuroparenchymal changes. 4. Small residual left apical pneumothorax." Continued management per Dr. Ritter Pneumonia CT chest with new infiltrates. on ceftriaxone; completed azithromycin final sputum culture result: E.coli with sensitivity to Rocephin Acute urinary retention in hospital Duoneb could be worsening it ,changed to albuterol and spiriva. bladder scan> 1000ml again on 05/13/19 Holley put back in. 1150 cc came out started on flomax will give trial of void after 1 week COPD exacerbation COPD/emphysema GOLD stage IV. Duoneb changed to albuterol and Spiriva due to urinary retention. continues budesonide and methyl pred and azithromycin Bicarb and ABG elevated - continued management per pulm S/P Acute respiratory failure with hypercarbia due to pneumothorax and COPD exacerbation now improved. Chronic back pain/Prior history of lumbar surgery will restart gabapentin at lower dose due to recent acute hypercarbia. History of alcohol use. history of tobacco dependency, quit in 2013. Severe malnutrition /pulmonary cachexia with severe muscle wasting and BMI of 17.6 Hypertension No history of HTN. However in hospital his blood pressures were high so started on amlodipine. Plan/VTE VTE Prophylaxis Ordered?: Yes VS, I&O, 24H, Fishbone Vital Signs/I&O Vital Signs Date Time Temp Pulse Resp B/P (MAP) Pulse Ox O2 Delivery O2 Flow Rate FiO2 05/18/19 12:00 3.0 05/18/19 11:43 97.5 83 20 166/77 (106) 95 Nasal Cannula I&O- Last 24 Hours up to 6 AM 05/18/19 06:00 Intake Total 2978 ml Output Total 1842 ml Balance 1136 ml Laboratory Data 24H LABS Laboratory Tests 2 05/18/19 04:07: Nucleated Red Blood Cells % (auto) 0.0, Anion Gap 6L, Glomerular Filtration Rate > 60.0, Calcium Level 8.3L CBC/BMP Laboratory Tests 05/18/19 04:07 Microbiology Microbiology 05/11/19 Gram Stain - Final, Complete 05/11/19 Sputum Culture - Final, Complete Escherichia Coli Yeast Like Organism 05/08/19 Respiratory Virus Panel (PCR) ([facility]) - Final, Complete Attending Note I have personally performed a face to face diagnostic evaluation on this patient. I have reviewed and agree with the care plan documented above. TOMÁS SEGURA PA-C May 18, 2019 14:35 LIDIA AGUIRRE MD May 24, 2019 06:14
[2019-05-18 15:53] VITALS: BP 140/75
[2019-05-18 20:00] VITALS: BP 152/70
[2019-05-18] MEDS: amLODIPine 5 MG TAB PO SCH (20:12)
[2019-05-19] VITALS: BP 123/68
[2019-05-19] MEDS: cefTRIAXone SOD 1 GM in D5W MINI-BAG PLUS 50 ML IV SCH (00:09)
[2019-05-19] MEDS: ALBUTEROL SULFATE 2.5 MG/0.5 ML INH NEB SOLN NEB SCH ×5 (03:32→20:18)
[2019-05-19] MEDS: KETOROLAC 30 MG/ML VIAL (J1885) IV SCH ×4 (03:49→21:00)
[2019-05-19 04:00] VITALS: BP 127/66
[2019-05-19] MEDS: D5W/0.9% SODIUM CHLORIDE 1,000 ML IV SCH (05:38)
[2019-05-19] MEDS: SODIUM CHLORIDE 0.9% INJ 10 ML SYR IV SCH ×3 (05:39→21:01)
[2019-05-19 06:10] LABS: HEMATOCRIT 34.9 % (42.0-52.0); MEAN CORPUSCULAR HEMOGLOBIN 29.7 pg (27.0-33.0); MEAN CORPUSCULAR HGB CONC 31.5 g/dl (32.0-36.5); MEAN CORPUSCULAR VOLUME 94.3 fl (80.0-96.0); PLATELET COUNT, AUTOMATED 323 10^3/uL (150-450); WHITE BLOOD COUNT 18.9 10^3/uL (4.0-10.0)
[2019-05-19 06:34] LABS: BLOOD UREA NITROGEN 27 MG/DL (7-18); CALCIUM LEVEL 7.6 MG/DL (8.8-10.2); CARBON DIOXIDE LEVEL 35 MEQ/L (21-32); CHLORIDE LEVEL 100 MEQ/L (98-107); CREATININE FOR GFR 0.62 MG/DL (0.70-1.30); GLOMERULAR FILTRATION RATE > 60.0 (>49); GLUCOSE, FASTING 102 MG/DL (70-100); POTASSIUM SERUM 4.7 MEQ/L (3.5-5.1); SODIUM LEVEL 139 MEQ/L (136-145)
[2019-05-19 08:00] VITALS: BP 152/82
--- NOTE | 2019-05-19 08:01 | REP ---
Clinical: Follow up pneumothorax. Technique: PA and lateral. Comparison: 05/18/2019. Findings: Left-sided chest tube in stable position. Subcutaneous emphysema appears to be mildly improved. Mediastinum, cardiac silhouette, and lung park remain relatively stable and no obvious new acute process is appreciated. Small residual left apical pneumothorax cannot be excluded. Impression: 1. Mild improvement to subcutaneous emphysema. 2. Pleuroparenchymal findings remain stable. No new acute process. Electronically Signed by Lam Sewell MD 05/19/2019 07:53 A
[2019-05-19] MEDS: TIOTROPIUM INHALER/CAPSULE (SPIRIVA) INH SCH (08:13)
[2019-05-19] MEDS: BUDESONIDE 0.5 MG/2 ML INHALATION SUSPENSION INH SCH ×2 (08:13→20:18)
[2019-05-19] MEDS: methylPREDNISolone INJ 40 MG/1 ML VIAL (J2920) IV SCH ×2 (08:18→21:02)
[2019-05-19] MEDS: NYSTATIN 500,000 U/5 ML SUSP UDC SS SCH ×4 (08:18→21:01)
[2019-05-19] MEDS: TAMSULOSIN 0.4 MG CAP PO SCH (08:18)
[2019-05-19] MEDS: ENOXAPARIN 30 MG/0.3 ML SYR (J1650) SC SCH (08:18)
[2019-05-19] MEDS: GABAPENTIN 100 MG CAP PO SCH ×3 (08:18→21:01)
[2019-05-19] MEDS: guaiFENesin ER 600 MG TAB PO SCH ×2 (08:19→21:01)
[2019-05-19] MEDS: MOM 30ML SUSPENSION UDC PO SCH (08:19)
[2019-05-19] MEDS: DOCUSATE SODIUM 100 MG CAP PO SCH ×2 (08:19→21:02)
[2019-05-19 12:00] VITALS: BP 133/63
--- NOTE | 2019-05-19 12:25 | IPN ---
DATE: 05/19/2019 Mr. Singh is sitting comfortably in a chair today. His subcutaneous emphysema is better. I do not see an air leak today and neither has the nursing staff. He continues on 20 cm of suction. His vital signs show a maximum temperature (t-max) of 97.1 with a heart rate that ranges between 83 and 69 in a sinus rhythm, respiratory rate of 18 to 21 without the use of accessory muscles, who is 98% saturated on 3 liters nasal cannula, and whose blood pressure is ranging between 123/68 to 152/82. His intake and output the past 24 hours has been recorded as 3693 in and 2589 out for a positivity of 1100 mL. He has taken in 1980 mL in oral intake, 17 in IV intake. I will therefore discontinue his IV. He has put out 89 mL from his chest tube and there is no air leak. PHYSICAL EXAMINATION: LUNGS: The subcutaneous emphysema over the anterior chest is markedly better. He still has subcutaneous emphysema down the left arm into the forearm but it too is much better. His lungs show equal breath sounds on either side, both diminished. I hear no wheezes, rhonchi or rales. Percussion note is full to the diaphragm. CARDIAC EXAM: Without murmurs, clicks, gallops or rubs. I cannot feel his point of maximum impulse (PMI). S1, S2 are normal. ABDOMEN: Soft, nontender. Bowel sounds positive. There is no hepatomegaly. No costovertebral angle tenderness. EXTREMITIES: Show no pretibial edema. No calf tenderness. There is now no differential swelling of the upper extremities. SKIN: Warm, dry and perfused without cyanosis or mottling, including that of the nail beds and knees. NECK: Supple. There is no jugular venous distention. No subcutaneous emphysema. Trachea is midline. MOUTH: Shows his mucous membranes to be pink and moist. Lips and commissures without lesions. There is still some residual thrush. EYES: Show his pupils to be equal and reactive. Extraocular motion intact. Sclerae anicteric. NEUROLOGIC: Shows II through XII intact with gross motor and gross sensation intact. Gait is not tested. PSYCHIATRIC: Shows him to be awake and alert, oriented times three with appropriate mood and affect and conversational. LABORATORY DATA: His white count today is 18.9, down from 20.1 yesterday, hemoglobin and hematocrit are 11.0 and 34.9 secondary to hemodilution with a platelet count of 323. Hemoglobin and hematocrit yesterday were 12 and 38.0. Chemistries today show a sodium of 139 with a potassium of 4.7 and a BUN and creatinine improving to 27 and 0.62 from 32 and 0.7 and a high of 40 and 0.76. Glucose is 102 with a calcium of 7.6. Total CO2 is 35, which is consistent with his past total CO2. Chest x-ray shows his lung expanded to the chest wall. His subcutaneous emphysema looks to be dissipating. His chest CT done yesterday shows what look to be multiple bullae, again in the upper portion of his chest. There is a new right lower lobe lesion, which was not apparent in his low dose CT scan in 2018. It looks spiculated and it looks like a tumor. The other opacity in the left upper lobe was present on low dose CT scanning and probably represents some scarring, as I noted before. Interpretation of the air space in the left upper lobe is correct, these represent now bullae and no pneumothorax. There looks to be septate within the air spaces suggesting that these are bullae and not adhesions into a pneumothorax. IMPRESSION: 1. Alveolar pleural fistula, controlled and now hopefully resolved. 2. 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 3. Spontaneous pneumothorax on the left secondary to bleb and bulla rupture. 4. 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 5. Chronic back pain. DISCUSSION: My clinical impression was that he would not tolerate one lung anesthesia and looking back at his most recent spirometry, he has an FEV1 of 0.54, which confirms that clinical impression. Hopefully, his air leak has stopped and we will be able to remove his tube prior to discharge. I have indicated to him that if he does not stop leaking by Wednesday, we will place a Heimlich valve and send him home with Heimlich valve. For the time being, I will keep him on 20 cm of suction. I will discontinue his IV. The internal medicine service has discontinued his antibiotics and we will also discontinue his Holley.
--- NOTE | 2019-05-19 12:45 | IPNPDOC ---
Subjective Date Seen The patient was seen on 05/19/19. Subjective Chief Complaint/HPI Mr. Singh is a 79 year old male admitted with a diagnosis of COPD, severe, Gold stage IV, dyspnea and respiratory distress. He is seen heading for a CT this morning. Pt continues to be extremely short of breath, he does not speak in full sentences d/t increased respiratory effort. Pt continues to deny any new or worsening symptoms. He actually look better today than he has for several days now. He also speaks above a whisper which is an improvement for him. General: Reports: Normal Appetite Constitutional: Denies: Chills, Night Sweats, Fatigue Eyes: Denies: Pain ENT: Denies: Head Aches Skin: Denies: Rash Pulmonary: Reports: Dyspnea, Cough Cardiovascular: Denies: Chest Pain, Palpitations Gastrointestinal: Denies: Vomiting, Abdominal Pain, Diarrhea Musculoskeletal: Denies: Neck Pain, Back Pain, Joint Pain, Muscle Pain, Spasms Neurological: Denies: Weakness, Numbness, Change in speech, Confusion Psych: Denies: Mood Normal Objective Physical Examination General Exam: Positive: Alert, Cooperative, Mild Distress (significant effort to breathe ), Other (frail, malnutritioned, cachextic) Eye Exam: Positive: Conjunctiva & lids normal, Sclera icteric ENT Exam: Positive: Atraumatic Neck Exam: Positive: Supple; Negative: JVD, thyromegaly Chest Exam: Positive: Clear to auscultation (superficial crepitus in L arm & chest that crosses the midline. very mild improvement ), Diminished (b/l lungs ), Other (barrel chest) Heart Exam: Positive: Tachycardic, Regular Rhythm, Normal S1, Normal S2, Murmurs (2/6 blowing murmur ) Abdomen Exam: Positive: Soft; Negative: Normal bowel sounds (crepirtus extends over upper abdomen ), Tenderness, Hepatospenomegaly Extremity Exam: Positive: Normal pulses, Swelling (L arm ); Negative: Clubbing, Cyanosis, Edema, Tenderness Skin Exam: Positive: Nl turgor and temperature Neuro Exam: Negative: Normal Speech (speaks in short spurts ) Psych Exam: Positive: Mental status NL, Mood NL, Oriented x 3 Assessment /Plan Assessment 68-year-old male with a history of 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 CT chest showed previously known emphysema and is seen as well as previously seen lung nodules. There was a moderate pneumothorax on the left size occupying perhaps 50% of the left hemithorax with possible very slight mediastinal shift. Patient was also in acute respiratory failure with hypercarbia with copd exacerbation. patient had a Chest tube placed urgently with relief of the pneumothorax on 05/08. However he still continues to leak air. His Acute respiratory failure has resolved. However still remains extremely dyspneic with minimal exertion with tachycardia and desaturations needing prolonged period of increased oxygen flow to recover. As per pulmonary that probably is his baseline with his advanced COPD. Left Pneumothorax s/p chest tube placement on 05/08, with SubQ Emphysema CXR 05/16/19 - L sided chest tube in stable position; otherwise the exam is largely unchanged from prior exam 05/17/19 Rocephin continued (re: question from nursing) as pt responding well clinically to abx, but has not returned to baseline 05/18/[address] Impression: "1. Extensive subcutaneous emphysema increased f rom prior examination. 2. Left-sided chest tube as described above. 3. Chronic relatively stable pleuroparenchymal changes. 4. Small residual left apical pneumothorax." with persistent air leak; showing signs of improvement CT noted with increased infiltrates on the right started on ceftriaxone. Blood patch attempted 05/15 was unsuccessful subQ emphysema showing mild improvement Continued management per Dr. Ritter Pneumonia CT chest with new infiltrates. completed azithromycin and ceftriaxone final sputum culture result: E.coli with sensitivity to Rocephin Procalcitonin pending as WBC trending upwards Acute urinary retention in hospital Duoneb could be worsening it ,changed to albuterol and spiriva. bladder scan> 1000ml again on 05/13/19 Holley put back in. 1150 cc came out started on flomax voiding trial due today COPD exacerbation COPD/emphysema GOLD stage IV. Duoneb changed to albuterol and Spiriva due to urinary retention. continues budesonide and methyl pred and azithromycin Bicarb and ABG elevated - continued management per pulm CT chest with increased infiltrate on the right S/P Acute respiratory failure with hypercarbia due to pneumothorax and COPD exacerbation now improved. Chronic back pain/Prior history of lumbar surgery will restart gabapentin at lower dose due to recent acute hypercarbia. History of alcohol use. history of tobacco dependency, quit in 2013. Severe malnutrition /pulmonary cachexia with severe muscle wasting and BMI of 17.6 Hypertension No history of HTN. However in hospital his blood pressures were high so started on amlodipine. Plan/VTE VTE Prophylaxis Ordered?: Yes VS, I&O, 24H, Fishbone Vital Signs/I&O Vital Signs Date Time Temp Pulse Resp B/P (MAP) Pulse Ox O2 Delivery O2 Flow Rate FiO2 05/19/19 12:00 97.0 133/63 (86) Nasal Cannula 3.0 05/19/19 08:00 70 21 99 I&O- Last 24 Hours up to 6 AM 05/19/19 06:00 Intake Total 2480 ml Output Total 2994 ml Balance -514 ml Laboratory Data 24H LABS Laboratory Tests 2 05/19/19 05:46: Nucleated Red Blood Cells % (auto) 0.0, Anion Gap 4L, Glomerular Filtration Rate > 60.0, Calcium Level 7.6L CBC/BMP Laboratory Tests 05/19/19 05:46 Microbiology Microbiology 05/11/19 Gram Stain - Final, Complete 05/11/19 Sputum Culture - Final, Complete Escherichia Coli Yeast Like Organism Attending Note I have personally performed a face to face diagnostic evaluation on this patient. I have reviewed and agree with the care plan documented above. TOMÁS SEGURA PA-C May 19, 2019 12:44 LIDIA AGUIRRE MD May 24, 2019 12:11
[2019-05-19 16:00] VITALS: BP 118/80
[2019-05-19 20:00] VITALS: BP 160/74
[2019-05-19] MEDS: amLODIPine 5 MG TAB PO SCH (21:01)
[2019-05-20] VITALS: BP 152/72
[2019-05-20] MEDS: KETOROLAC 30 MG/ML VIAL (J1885) IV SCH ×3 (03:23→16:10)
[2019-05-20] MEDS: SODIUM CHLORIDE 0.9% INJ 10 ML SYR IV PRN (03:24)
[2019-05-20 04:00] VITALS: BP 134/80
[2019-05-20] MEDS: ALBUTEROL SULFATE 2.5 MG/0.5 ML INH NEB SOLN NEB SCH ×6 (04:00→19:53)
[2019-05-20] MEDS: SODIUM CHLORIDE 0.9% INJ 10 ML SYR IV SCH ×3 (05:12→21:01)
[2019-05-20 05:31] LABS: HEMATOCRIT 36.2 % (42.0-52.0); HEMOGLOBIN 11.5 g/dl (13.5-17.5); MEAN CORPUSCULAR HEMOGLOBIN 29.9 pg (27.0-33.0); MEAN CORPUSCULAR HGB CONC 31.8 g/dl (32.0-36.5); PLATELET COUNT, AUTOMATED 349 10^3/uL (150-450); RED BLOOD COUNT 3.85 10^6/uL (4.30-6.10); WHITE BLOOD COUNT 20.2 10^3/uL (4.0-10.0)
[2019-05-20 05:59] LABS: BLOOD UREA NITROGEN 35 MG/DL (7-18); CALCIUM LEVEL 8.3 MG/DL (8.8-10.2); CARBON DIOXIDE LEVEL 37 MEQ/L (21-32); CHLORIDE LEVEL 96 MEQ/L (98-107); CREATININE FOR GFR 0.64 MG/DL (0.70-1.30); GLOMERULAR FILTRATION RATE > 60.0 (>49); GLUCOSE, FASTING 101 MG/DL (70-100); SODIUM LEVEL 137 MEQ/L (136-145)
[2019-05-20] MEDS: TIOTROPIUM INHALER/CAPSULE (SPIRIVA) INH SCH (07:27)
[2019-05-20] MEDS: BUDESONIDE 0.5 MG/2 ML INHALATION SUSPENSION INH SCH ×2 (07:28→19:53)
[2019-05-20 08:00] VITALS: BP 135/84
[2019-05-20] MEDS: TAMSULOSIN 0.4 MG CAP PO SCH (08:27)
[2019-05-20] MEDS: MOM 30ML SUSPENSION UDC PO SCH (08:27)
[2019-05-20] MEDS: DOCUSATE SODIUM 100 MG CAP PO SCH ×2 (08:27→21:01)
[2019-05-20] MEDS: ENOXAPARIN 30 MG/0.3 ML SYR (J1650) SC SCH (08:27)
[2019-05-20] MEDS: NYSTATIN 500,000 U/5 ML SUSP UDC SS SCH ×4 (08:27→21:00)
[2019-05-20] MEDS: GABAPENTIN 100 MG CAP PO SCH ×3 (08:28→21:00)
[2019-05-20] MEDS: guaiFENesin ER 600 MG TAB PO SCH ×2 (08:28→21:00)
[2019-05-20] MEDS ORDERED: methylPREDNISolone INJ 40 MG/1 ML VIAL (J2920) IV SCH (09:00)
--- NOTE | 2019-05-20 09:16 | REP ---
Clinical: Follow up pneumothorax. Technique: PA and lateral. Comparison: 02/17/2019. Findings: Left chest tube in stable position. Subcutaneous emphysema similar to prior examination. Mediastinum, cardiac silhouette, and lung park are stable. No new acute process appreciated. Small chronic left apical pneumothorax cannot be excluded. Impression: Relatively stable examination. No new acute process appreciated. Electronically Signed by Lam Sewell MD 05/20/2019 09:08 A
--- NOTE | 2019-05-20 10:56 | IPNPDOC ---
Subjective Date Seen The patient was seen on 05/20/19. Subjective Chief Complaint/HPI No complaints this morning. Breathing is ok. Has some cough not much phlegm production. No fever or chills, sub cutaneous emphysema seems a little less today. Objective Physical Examination General Exam: Positive: Alert, Cooperative, Mild Distress (significant effort to breathe ), Other (frail, malnutritioned, cachextic) Eye Exam: Positive: Conjunctiva & lids normal, Sclera icteric ENT Exam: Positive: Atraumatic Neck Exam: Positive: Supple; Negative: JVD, thyromegaly Chest Exam: Positive: Clear to auscultation (superficial crepitus in L arm & chest that crosses the midline. very mild improvement ), Diminished (b/l lungs ), Other (barrel chest) Heart Exam: Positive: Tachycardic, Regular Rhythm, Normal S1, Normal S2, Murmurs (2/6 blowing murmur ) Abdomen Exam: Positive: Soft; Negative: Normal bowel sounds (crepirtus extends over upper abdomen ), Tender ness, Hepatospenomegaly Extremity Exam: Positive: Normal pulses, Swelling (L arm ); Negative: Clubbing, Cyanosis, Edema, Tenderness Skin Exam: Positive: Nl turgor and temperature Neuro Exam: Negative: Normal Speech (speaks in short spurts ) Psych Exam: Positive: Mental status NL, Mood NL, Oriented x 3 RAD Interpretation STUDY: CXR Rad Actions: Report Reviewed (1. 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 CT chest showed previously known emphysema and is seen as well as previously seen lung nodules. There was a moderate pneumothorax on the left size occupying perhaps 50% of the left hemithorax with possible very slight mediastinal shift. Patient was also in acute respiratory failure with hypercarbia with copd exacerbation. patient had a Chest tube placed urgently with relief of the pneumothorax on 05/08. However he still continues to leak air. His Acute respiratory failure has resolved. However still remains extremely dyspneic with minimal exertion with tachycardia and desaturations needing prolonged period of increased oxygen flow to recover. As per pulmonary that probably is his baseline with his advanced COPD. Left Spontaneous Pneumothorax due to rupture of bulla / bleb s/p chest tube placement on 05/08, with SubQ Emphysema With alveolar pleural fistula. Blood patch attempted 05/15 was unsuccessful subQ emphysema showing mild improvement Continued management per Dr. Ritter Pneumonia completed azithromycin and ceftriaxone final sputum culture result: E.coli with sensitivity to Rocephin WBC remains elevated but procalcitonin is normal so this is not due to infection could be steroids will not give any further antibiotics Acute urinary retention in hospital Duoneb could be worsening it ,changed to albuterol and spiriva. bladder scan> 1000ml again on 05/13/19 Holley put back in. 1150 cc came out started on flomax voiding trial started again on 05/19/19 COPD exacerbation COPD/emphysema GOLD stage IV. Duoneb changed to albuterol and Spiriva due to urinary retention. continues budesonide and methyl pred and azithromycin Bicarb and ABG elevated - continued management per pulm CT chest with increased infiltrate on the right S/P Acute respiratory failure with hypercarbia due to pneumothorax and COPD exacerbation now improved. Chronic back pain/Prior history of lumbar surgery will restart gabapentin at lower dose due to recent acute hypercarbia. History of alcohol use. history of tobacco dependency, quit in 2013. Severe malnutrition /pulmonary cachexia with severe muscle wasting and BMI of 17.6 Hypertension No history of HTN. However in hospital his blood pressures were high so started on amlodipine. Plan/VTE VTE Prophylaxis Ordered?: Yes VS, I&O, 24H, Fishbone Vital Signs/I&O Vital Signs Date Time Temp Pulse Resp B/P (MAP) Pulse Ox O2 Delivery O2 Flow Rate FiO2 05/20/19 08:00 96.4 65 22 135/84 (101) 100 Nasal Cannula 3.0 I&O- Last 24 Hours up to 6 AM 05/20/19 06:00 Intake Total 2745 ml Output Total 1793 ml Balance 952 ml Laboratory Data 24H LABS Laboratory Tests 2 05/20/19 05:11: Nucleated Red Blood Cells % (auto) 0.0, Anion Gap 4L, Glomerular Filtration Rate > 60.0, Calcium Level 8.3L CBC/BMP Laboratory Tests 05/20/19 05:11 Microbiology Microbiology 05/11/19 Gram Stain - Final, Complete 05/11/19 Sputum Culture - Final, Complete Escherichia Coli Yeast Like Organism LIDIA AGUIRRE MD May 20, 2019 10:55
--- NOTE | 2019-05-20 10:58 | IPN ---
DATE OF SERVICE: 05/20/2019 Mr. Singh does not have an air leak today and this is now the second day. He remains on 20 cm of suction. His subcutaneous emphysema is vastly better. His vital signs show a T-max of 97.0 with a heart rate that ranges between 69 and 86 in a sinus rhythm, respiratory rate of 18-22 without the use of accessory muscles who is 97-98% saturated on 3 liters nasal cannula. He has blood pressures ranging between 134/80 to 160/74. His intake and output over the past 24 hours has been recorded as 3045 in and 2672 out for a positivity of 373 mL. He has taken in 6020 mL in oral intake and 1425 mL in p.o. intake. I discontinued the IV yesterday morning. He has put out 22 mL out of the chest tube and there is no air leak. He weighs 50.7 kg today compared to 47.9 kg yesterday. On physical examination, his lungs show equal breath sounds on either side without wheezes, rhonchi or rales. They are markedly diminished on either side. I still hear a few crackles of subcutaneous emphysema but they are only mild. Percussion note is full to the diaphragm. Cardiac exam is without murmurs, clicks, gallops or rubs. I cannot feel his PMI. S1 and S2 are normal. Abdomen is soft, nontender, bowel sounds are positive. There is no hepatomegaly. No CVA tenderness. Extremities show no pretibial edema. No calf tenderness. No differential swelling of the upper extremities. Skin is warm, dry and perfused without cyanosis or mottling including that of the nail beds and knees. Neck is supple. There is no jugular venous distention. No subcutaneous emphysema in the base of the neck. There is a little bit of subcutaneous emphysema over the pectoral muscles. Subcutaneous emphysema has resolved in the left arm. Mouth shows his mucous membranes to be pink and moist. Thrush looks to be resolved. Lips and commissures are without lesions. Eyes show his pupils to be equal and reactive. Extraocular motor intact. Sclera anicteric. Neuro shows II through XII intact with gross motor and gross sensation intact. Gait is not intact. Psychiatric shows him to be awake and alert, oriented times three with appropriate mood and affect and conversational. His white count today is back to 20.2 up from 18.9 yesterday. Hemoglobin and hematocrit are 11.5 and 36.2 slightly up from 11.0 and 34.9 yesterday. Platelet count is 349 and is stable. Chemistries show normal electrolytes except for an elevated total CO2 of 37 which is about his baseline. BUN and creatinine are 35 and 0.64 with a glucose of 101 and a calcium of 8.3. His chest x-ray today shows the lung fully expanded to the chest wall. His subcutaneous emphysema is quite diminished. Chest tube is in the same place heading posteriorly. Costophrenic angles are sharp but diaphragms are flat. I do not see a line consistent with an air space or pneumothorax. Lateral chest x-ray does not show any infiltrates. IMPRESSION: 1. Alveolar pleural fistula now hopefully resolved. 2. 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 3. Spontaneous pneumothorax on the left secondary to bleb and bulla rupture. 4. 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 5. Chronic back pain. PLAN AND DISCUSSION: I will take his chest tube off of suction today. If the lung is still expanding to the chest wall and there is no air leak tomorrow and there is no increase in his subcutaneous emphysema, I will then clamp the chest tube for 24 hours. I can see pulling it on Wednesday and discharging him perhaps on Wednesday. He is still on methylprednisolone 20 mg IV.
[2019-05-20 12:00] VITALS: BP 143/68
[2019-05-20 16:00] VITALS: BP 137/64
[2019-05-20 20:00] VITALS: BP 116/65
[2019-05-20] MEDS: amLODIPine 5 MG TAB PO SCH (21:01)
[2019-05-21] VITALS (7 sets, daily range): BP systolic 108–134; BP diastolic 58–75
[2019-05-21] MEDS: ALBUTEROL SULFATE 2.5 MG/0.5 ML INH NEB SOLN NEB SCH ×6 (00:04→21:47)
[2019-05-21] MEDS: ACETAMINOPHEN TAB 650MG DOSE (2X325MG) PO PRN ×2 (00:15→20:57)
[2019-05-21] MEDS: SODIUM CHLORIDE 0.9% INJ 10 ML SYR IV SCH ×3 (05:02→21:00)
[2019-05-21 05:14] LABS: HEMATOCRIT 33.3 % (42.0-52.0); HEMOGLOBIN 10.7 g/dl (13.5-17.5); MEAN CORPUSCULAR HEMOGLOBIN 30.1 pg (27.0-33.0); MEAN CORPUSCULAR HGB CONC 32.1 g/dl (32.0-36.5); MEAN CORPUSCULAR VOLUME 93.8 fl (80.0-96.0); PLATELET COUNT, AUTOMATED 315 10^3/uL (150-450); RED BLOOD COUNT 3.55 10^6/uL (4.30-6.10); WHITE BLOOD COUNT 14.9 10^3/uL (4.0-10.0)
[2019-05-21 05:35] LABS: BLOOD UREA NITROGEN 30 MG/DL (7-18); CALCIUM LEVEL 7.8 MG/DL (8.8-10.2); CARBON DIOXIDE LEVEL 36 MEQ/L (21-32); CHLORIDE LEVEL 99 MEQ/L (98-107); GLOMERULAR FILTRATION RATE > 60.0 (>49); GLUCOSE, FASTING 80 MG/DL (70-100); POTASSIUM SERUM 4.3 MEQ/L (3.5-5.1); SODIUM LEVEL 139 MEQ/L (136-145)
[2019-05-21] MEDS: BUDESONIDE 0.5 MG/2 ML INHALATION SUSPENSION INH SCH ×2 (07:17→21:47)
[2019-05-21] MEDS: TIOTROPIUM INHALER/CAPSULE (SPIRIVA) INH SCH (07:17)
--- NOTE | 2019-05-21 08:09 | REP ---
Clinical: Follow up pneumothorax. Technique: PA and lateral. Comparison: 05/20/2019. Findings: Left chest tube in stable position. Moderate subcutaneous emphysema again noted which appears generally improved when compared through 05/16/2019. Mediastinum, cardiac silhouette, and lung park are stable. No new acute pleuroparenchymal process appreciated. Impression: 1. No significant change from recent prior examination. 2. Overall decreased subcutaneous emphysema when compared through multiple prior examinations. Electronically Signed by Lam Sewell MD 05/21/2019 08:01 A
[2019-05-21] MEDS: ENOXAPARIN 30 MG/0.3 ML SYR (J1650) SC SCH (08:17)
[2019-05-21] MEDS: GABAPENTIN 100 MG CAP PO SCH ×3 (08:17→20:57)
[2019-05-21] MEDS: predniSONE 20 MG TAB PO SCH (08:17)
[2019-05-21] MEDS: TAMSULOSIN 0.4 MG CAP PO SCH (08:17)
[2019-05-21] MEDS: NYSTATIN 500,000 U/5 ML SUSP UDC SS SCH ×4 (08:17→20:57)
[2019-05-21] MEDS: MOM 30ML SUSPENSION UDC PO SCH (08:17)
[2019-05-21] MEDS: DOCUSATE SODIUM 100 MG CAP PO SCH ×2 (08:17→20:57)
[2019-05-21] MEDS: guaiFENesin ER 600 MG TAB PO SCH ×2 (08:17→20:57)
--- NOTE | 2019-05-21 09:52 | IPNPDOC ---
Subjective Date Seen The patient was seen on 05/21/19. Subjective Chief Complaint/HPI No complaints this morning. has chronic cough with some phlegm production. Objective Physical Examination General Exam: Positive: Alert, Cooperative, Mild Distress (significant effort to breathe ), Other (frail, malnutritioned, cachextic) Eye Exam: Positive: Conjunctiva & lids normal, Sclera icteric ENT Exam: Positive: Atraumatic Neck Exam: Positive: Supple; Negative: JVD, thyromegaly Chest Exam: Positive: Clear to auscultation (superficial crepitus in L arm & chest that crosses the midline. very mild improvement ), Diminished (b/l lungs ), Other (barrel chest) Heart Exam: Positive: Tachycardic, Regular Rhythm, Normal S1, Normal S2, Murmurs (2/6 blowing murmur ) Abdomen Exam: Positive: Soft; Negative: Normal bowel sounds (crepirtus extends over upper abdomen ), Tenderness, Hepatospenomegaly Extremity Exam: Positive: Normal pulses, Swelling (L arm ); Negative: Clubbing, Cyanosis, Edema, Tenderness Skin Exam: Positive: Nl turgor and temperature Neuro Exam: Negative: Normal Speech (speaks in short spurts ) Psych Exam: Positive: Mental status NL, Mood NL, Oriented x 3 Assessment /Plan Assessment 68-year-old male with a history of severe GOLD stage IV Chronic obstructive pulmonary disease (COPD) with emphysema, history of nasal canula oxygen supplementation with exertion and at rest who presented to the emergency depart ment (ED) with worsening shortness of breath and respiratory distress. CT chest showed previously known emphysema and is seen as well as previously seen lung nodules. There was a moderate pneumothorax on the left size occupying perhaps 50% of the left hemithorax with possible very slight mediast inal shift. Patient was also in acute respiratory failure with hypercarbia with copd exacerbation. patient had a Chest tube placed urgently with relief of the pneumothorax on 05/08. However he still continues to leak air. His Acute respiratory failure has resolved. However still remains extremely dyspneic with minimal exertion with tachycardia and desaturations needing prolonged period of increased oxygen flow to recover. As per pulmonary that probably is his baseline with his advanced COPD. Left Spontaneous Pneumothorax due to rupture of bulla / bleb s/p chest tube placement on 05/08, with SubQ Emphysema With alveolar pleural fistula. Blood patch attempted 05/15 was unsuccessful subQ emphysema showing mild improvement Continued management per Dr. Ritter Chest tube has been off suction since yesterday with no worsening of the CXR or the sub cutaneous emphysema today. Pneumonia completed azithromycin and ceftriaxone final sputum culture result: E.coli with sensitivity to Rocephin WBC remains elevated but procalcitonin is normal so this is not due to infection could be steroids will not give any further antibiotics Acute urinary retention in hospital Duoneb could have been worsening it ,changed to albuterol and spiriva. bladder scan> 1000ml again on 05/13/19 Holley put back in. 1150 cc came out started on flomax Passed voiding trial on 05/19/19. Seems to be voiding OK at present. COPD exacerbation COPD/emphysema GOLD stage IV. Duoneb changed to albuterol and Spiriva due to urinary retention. continues budesonide changed to oral prednisone with tapering to be continued S/P Acute respiratory failure with hypercarbia due to pneumothorax and COPD exacerbation now improved. Chronic back pain/Prior history of lumbar surgery will restart gabapentin at lower dose due to recent acute hypercarbia. History of alcohol use. history of tobacco dependency, quit in 2013. Severe malnutrition /pulmonary cachexia with severe muscle wasting and BMI of 17.6 Hypertension No history of HTN. However in hospital his blood pressures were high so started on amlodipine. Plan/VTE VTE Prophylaxis Ordered?: Yes VS, I&O, 24H, Fishbone Vital Signs/I&O Vital Signs Date Time Temp Pulse Resp B/P (MAP) Pulse Ox O2 Delivery O2 Flow Rate FiO2 05/21/19 08:00 3.0 05/21/19 08:00 97.0 71 20 134/61 (85) 95 Nasal Cannula I&O- Last 24 Hours up to 6 AM0 05/21/19 06:00 Intake Total 1440 ml Output Total 1966 ml Balance -526 ml Laboratory Data 24H LABS Laboratory Tests 2 05/21/19 04:52: Nucleated Red Blood Cells % (auto) 0.0, Anion Gap 4L, Glomerular Filtration Rate > 60.0, Calcium Level 7.8L CBC/BMP Laboratory Tests 05/21/19 04:52 Microbiology Microbiology 05/11/19 Gram Stain - Final, Complete 05/11/19 Sputum Culture - Final, Complete Escherichia Coli Yeast Like Organism LIDIA AGUIRRE MD May 21, 2019 09:52
--- NOTE | 2019-05-21 12:57 | IPN ---
DATE: 05/21/2019 Mr. Singh is not leaking today. His subcutaneous emphysema continues to improve. He is breathing at his baseline. His vital signs show a maximum temperature (T max) of 97.5 with a heart rate that ranges between 60 and 73 and is sinus rhythm and respiratory rate of 16 to 20 without the use of accessory muscles, who is 99% saturated on 3 liters nasal cannula and whose blood pressure is ranging between 114/59 to 134/61. His intake and output over the past 24 hours has been recorded as 840 in and 1895 out for a negativity of 1055 mL. He has put out 10 mL from the chest tube, and there is no air leak. Weight today is 51.6 kg compared to 50.7 kg yesterday. On physical examination, he has decreased breath sounds on either side. I hear the occasional crackle of subcutaneous emphysema in the left chest. The subcutaneous emphysema is at the sternal notch at the base of his neck. The arm is vastly improved. There is no subcutaneus emphysema in the upper or the lower arm today. Cardiac exam is without murmurs, clicks, gallops or rubs. I cannot feel his point of maximum impulse (PMI). S1, S2 are normal. Abdomen is soft and nontender. Bowel sounds are positive. There is no hepatomegaly. No costovertebral angle tenderness. Extremities show no pretibial edema. No calf tenderness. No differential swelling of the upper extremities. Skin is warm, dry and perfused without cyanosis or mottling, including that of the nail beds and the knees. Neck is supple. There is no jugular venous distention, no subcutaneous emphysema. Trachea is midline. Mouth shows his mucous membranes to be pink and moist. Lips and commissures without lesions. Thrush has resolved. Eyes show his pupils to be equal and reactive. Extraocular motions intact. Sclerae anicteric. Neurologic shows II-XII intact along with gross motor and gross sensation intact. Gait is not tested. Psychiatric shows him to be awake and alert, oriented times three with appropriate mood and affect and conversational. It should be noted that percussion note is full to the diaphragm. His white count today is down to 14.9 from 20.2 yesterday. Hemoglobin and hematocrit are 10.7 and 33.3 with a platelet count of 315. There is no differential. Electrolytes today are normal except for an elevated total CO2 of 36, which is his baseline. BUN and creatinine are 30 and 0.70 with a glucose of 80 and a calcium of 7.8. His chest x-ray today shows the lung fully expanded to the chest wall with further improvement in his subcutaneous emphysema. The air spaces of bulla can clearly be seen in the left upper cupola. Chest tube is still posterior and unchanged. Central line was in good place. IMPRESSION: 1. Alveolar pleural fistula, now hopefully resolved. 2. 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 3. Spontaneous pneumothorax on the left secondary to bleb and bulla rupture. 4. Bullous disease of the left upper lobe. 5. Chronic back pain. PLAN AND DISCUSSION: I will clamp his chest tube today. If his lung remains expanded to the chest wall, and there is no increase in the subcutaneous emphysema, I will remove it tomorrow and plan for discharge on Wednesday.
[2019-05-21] MEDS: amLODIPine 5 MG TAB PO SCH (20:57)
[2019-05-22] MEDS: ALBUTEROL SULFATE 2.5 MG/0.5 ML INH NEB SOLN NEB SCH ×7 (00:06→23:49)
[2019-05-22 04:00] VITALS: BP 112/57
[2019-05-22] MEDS: SODIUM CHLORIDE 0.9% INJ 10 ML SYR IV SCH ×3 (05:06→20:17)
[2019-05-22 05:43] LABS: HEMATOCRIT 32.4 % (42.0-52.0); HEMOGLOBIN 10.6 g/dl (13.5-17.5); MEAN CORPUSCULAR HEMOGLOBIN 30.3 pg (27.0-33.0); MEAN CORPUSCULAR HGB CONC 32.7 g/dl (32.0-36.5); MEAN CORPUSCULAR VOLUME 92.6 fl (80.0-96.0); PLATELET COUNT, AUTOMATED 327 10^3/uL (150-450); WHITE BLOOD COUNT 14.1 10^3/uL (4.0-10.0)
[2019-05-22 05:54] LABS: BLOOD UREA NITROGEN 25 MG/DL (7-18); CALCIUM LEVEL 7.8 MG/DL (8.8-10.2); CARBON DIOXIDE LEVEL 35 MEQ/L (21-32); CHLORIDE LEVEL 100 MEQ/L (98-107); GLOMERULAR FILTRATION RATE > 60.0 (>49); GLUCOSE, FASTING 76 MG/DL (70-100); POTASSIUM SERUM 4.2 MEQ/L (3.5-5.1); SODIUM LEVEL 140 MEQ/L (136-145)
[2019-05-22] MEDS: BUDESONIDE 0.5 MG/2 ML INHALATION SUSPENSION INH SCH ×2 (07:42→20:00)
[2019-05-22] MEDS: TIOTROPIUM INHALER/CAPSULE (SPIRIVA) INH SCH (07:42)
[2019-05-22 08:00] VITALS: BP 110/52
[2019-05-22] MEDS: DOCUSATE SODIUM 100 MG CAP PO SCH ×2 (09:00→20:17)
[2019-05-22] MEDS: MOM 30ML SUSPENSION UDC PO SCH (09:00)
--- NOTE | 2019-05-22 10:12 | REP ---
Clinical: Pneumothorax. Technique: PA and lateral. Comparison: 05/21/2019. Findings: Left-sided chest tube in stable position. Left subclavian catheter with tip in the SVC. Moderate subcutaneous emphysema again noted and essentially unchanged. Mediastinum, cardiac silhouette, and lung park are relatively stable. No obvious new acute process appreciated. Impression: No significant change from prior examination. Electronically Signed by Lam Sewell MD 05/22/2019 10:05 A
[2019-05-22] MEDS: predniSONE 20 MG TAB PO SCH (11:11)
[2019-05-22] MEDS: GABAPENTIN 100 MG CAP PO SCH ×3 (11:11→20:16)
[2019-05-22] MEDS: guaiFENesin ER 600 MG TAB PO SCH ×2 (11:11→20:16)
[2019-05-22] MEDS: TAMSULOSIN 0.4 MG CAP PO SCH (11:11)
[2019-05-22] MEDS: NYSTATIN 500,000 U/5 ML SUSP UDC SS SCH ×4 (11:12→20:16)
[2019-05-22] MEDS: ENOXAPARIN 30 MG/0.3 ML SYR (J1650) SC SCH (11:12)
[2019-05-22 12:00] VITALS: BP 116/61
--- NOTE | 2019-05-22 13:09 | IPN ---
DATE: 05/22/2019 Mr. Singh is breathing at his baseline. He notes that he is passing more urine than he usually does. He is not on any diuretics. His pain is being well controlled at the chest tube insertion site. His chest x-ray shows his lung fully expanded to the chest wall and there is no evidence of an air space or pneumothorax. The subcutaneous emphysema looks to be dissipating. On physical examination, his vital signs show a maximum temperature (T max) of 99.7 with a heart rate that ranges between 74 and 114 in a sinus rhythm and a respiratory rate of 20 to 22 with the use of cervical accessory muscles, who is 99% saturated on 3 liters nasal cannula and whose blood pressure is ranging between 108/58 to 112/57. His intake and output over the past 24 hours has been recorded as 1380 in and 2552 out for a negativity of 1100 mL. The chest tube has been clamped overnight. Weight today is 50.5 kg compared to 51.6 kg yesterday. On physical examination, I perceive his subcutaneous emphysema to be slightly increased over the pectoral muscles. His upper arm shows some slight subcutaneous emphysema which I did not feel yesterday. Lungs show equal breath sounds on either side with the faint crackles of subcutaneous emphysema. Percussion note is full to the diaphragm. Cardiac exam is without murmurs, clicks, gallops or rubs. I cannot feel his point of maximum impulse (PMI). S1, S2 are normal. Abdomen is soft and nontender. Bowel sounds are positive. There is no hepatomegaly. No costovertebral angle tenderness. Extremities show no pretibial edema. No calf tenderness. There is no differential swelling of the upper extremities. Skin is warm, dry and perfused without cyanosis or mottling, including that of the nail beds and the knees. Neck is supple. There is no jugular venous distention, there is some subcutaneous emphysema at the base of the neck. Trachea is midline. Mouth shows his mucous membranes to be pink and moist. Lips and commissures without lesions. Thrush is resolving. Eyes show his pupils to be equal and reactive. Extraocular motions intact. Sclerae anicteric. Neurologic shows II-XII intact along with gross motor and gross sensation intact. Gait is not tested. Psychiatric shows him to be awake and alert, oriented times three with appropriate mood and affect and conversational. His white count is 14.1, slightly down from 14.9 yesterday. Hemoglobin and hematocrit are 10.6 and 32.4, essentially unchanged from yesterday, with a platelet count of 327. Electrolytes today are normal except for an elevated total CO2 of 35 which is unchanged. BUN and creatinine are 25 and 0.70 with a glucose of 76 and a calcium of 7.8. There are no blood gases on him today. His chest x-ray is described above. Diaphragms are flat. The costophrenic angles are sharp except for a little bit of blunting of the left costophrenic angle which is essentially unchanged from his last few days chest x-rays. IMPRESSION: 1. Alveolar pleural fistula, hopefully resolved. 2. 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 3. Spontaneous pneumothorax on the left secondary to bleb and bulla rupture. 4. Bullous disease of the left upper lobe. 5. Chronic back pain. PLAN AND DISCUSSION: I am going to remove his tube today. I do have some amount of trepidation, but after unclamping the tube there is no air leak. I am concerned that I perceive a little bit more subcutaneous emphysema, although that may be more subjective than not. I do have a sinking feeling that this is going to recur even if I get him out of the hospital tomorrow. He quit smoking six years ago which is a plus.
--- NOTE | 2019-05-22 14:45 | IPNPDOC ---
Subjective Date Seen The patient was seen on 05/22/19. Subjective Chief Complaint/HPI Mr. Singh is a 79 year old male admitted with a diagnosis of COPD, severe, Gold stage IV, dyspnea and respiratory distress. He is seen sitting up in bed this morning, eating an early lunch. He continues to look improved and reports he feels fine. He denied any pain, worsening dyspnea since his chest tube has been removed. He is looking forward to going home tomorrow. General: Reports: Normal Appetite; Denies: Chills, Night Sweats Constitutional: Denies: Chills, Fever, Malaise, Night Sweats Eyes: Denies: Pain Skin: Denies: Rash Pulmonary: Reports: Dyspnea (baseline ), Cough (baseline; non-productive ) Cardiovascular: Denies: Chest Pain, Palpitations, Orthopnea, Lt Headedness Gastrointestinal: Denies: Abdominal Pain Genitourinary: Denies: Dysuria Musculoskeletal: Denies: Neck Pain, Back Pain, Joint Pain, Muscle Pain, Spasms Neurological: Denies: Numbness, Confusion Psych: Reports: Mood Normal Objective Physical Examination General Exam: Positive: Alert, Cooperative, Mild Distress (significant effort to breathe ), Other (frail, malnutritioned, cachextic) Eye Exam: Positive: Conjunctiva & lids normal, Sclera icteric ENT Exam: Positive: Atraumatic Neck Exam: Positive: Supple; Negative: JVD, thyromegaly Chest Exam: Positive: Clear to auscultation (superficial crepitus in L arm & chest that crosses the midline. very mild improvement ), Diminished (b/l lungs ), Other (barrel chest) Heart Exam: Positive: Tachycardic, Regular Rhythm, Normal S1, Normal S2, Murmurs (2/6 blowing murmur ) Abdomen Exam: Positive: Soft; Negative: Normal bowel sounds (crepirtus extends over upper abdomen ), Tenderness, Hepatospenomegaly Extremity Exam: Positive: Normal pulses, Swelling (L arm ); Negative: Clubbing, Cyanosis, Edema, Tenderness Skin Exam: Positive: Nl turgor and temperature Neuro Exam: Negative: Normal Speech (speaks in short spurts ) Psych Exam: Positive: Mental status NL, Mood NL, Oriented x 3 Assessment /Plan Assessment 68-year-old male with a history of 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 CT chest showed previously known emphysema and is seen as well as previously seen lung nodules. There was a moderate pneumothorax on the left size occupying perhaps 50% of the left hemithorax with possible very slight mediastinal shift. Patient was also in acute respiratory failure with hypercarbia with copd exacerbation. patient had a Chest tube placed urgently with relief of the pneumothorax on 05/08. However he still continues to leak air . His Acute respiratory failure has resolved. However still remains extremely dyspneic with minimal exertion with tachycardia and desaturations needing prolonged period of increased oxygen flow to recover. As per pulmonary that probably is his baseline with his advanced COPD. Left Spontaneous Pneumothorax due to rupture of bulla / bleb s/p chest tube placement on 05/08, with SubQ Emphysema Prolonged air leak due to alveolar pleural fistula. Blood patch attempted 05/15 was unsuccessful CXR shows no evidence of pneumothorax and is fully expanded to the chest wall chest tube removed this a.m. no pain or worsening dyspnea reported subQ emphysema showing mild improvement Continued management per Dr. Rittre Pneumonia completed azithromycin and ceftriaxone final sputum culture result: E.coli with sensitivity to Rocephin WBC remains elevated but procalcitonin is normal so this is not due to infection could be steroids , or urinary reaction causing reactive leukocytosis. will not give any further antibiotics Acute urinary retention in hospital Duoneb could have been worsening it ,changed to albuterol and Spiriva. bladder scan> 1000ml again on 05/13/19 Holley put back in. 1150 cc came out started on flomax Passed voiding trial on 05/19/19. Seems to be voiding OK at present. COPD exacerbation COPD/emphysema GOLD stage IV. Duoneb changed to albuterol and Spiriva due to urinary retention. continues budesonide and prednisone CXR today shows relatively stable S/P Acute respiratory failure with hypercarbia due to pneumothorax and COPD exacerbation now improved. Chronic back pain/Prior history of lumbar surgery will restart gabapentin at lower dose due to recent acute hypercarbia. History of alcohol use. history of tobacco dependency, quit in 2013. Severe malnutrition /pulmonary cachexia with severe muscle wasting and BMI of 17.6 Hypertension No history of HTN. However in hospital his blood pressures were high so started on amlodipine. Possible d/c 05/23/19. Strongly encouraged to work with PT leading up to d/c. Plan/VTE VTE Prophylaxis Ordered?: Yes VS, I&O, 24H, Fishbone Vital Signs/I&O Vital Signs Date Time Temp Pulse Resp B/P (MAP) Pulse Ox O2 Delivery O2 Flow Rate FiO2 05/22/19 12:00 3.0 05/22/19 12:00 97.9 72 18 116/61 (79) 100 Nasal Cannula I&O- Last 24 Hours up to 6 AM 05/22/19 05:59 Intake Total 1380 ml Output Total 2777 ml Balance -1397 ml Laboratory Data 24H LABS Laboratory Tests 2 05/22/19 05:06: Nucleated Red Blood Cells % (auto) 0.0, Anion Gap 5L, Glomerular Filtration Rate > 60.0, Calcium Level 7.8L CBC/BMP Laboratory Tests 05/22/19 05:06 TOMÁS SEGURA PA-C May 22, 2019 14:45 LIDIA AGUIRRE MD May 25, 2019 12:10
[2019-05-22 16:00] VITALS: BP 134/68
[2019-05-22 20:00] VITALS: BP 138/60
[2019-05-22] MEDS: amLODIPine 5 MG TAB PO SCH (20:16)
[2019-05-22] MEDS: SODIUM CHLORIDE 0.9% INJ 10 ML SYR IV PRN (20:17)
[2019-05-23] VITALS (8 sets, daily range): BP systolic 115–158; BP diastolic 55–88; O2SAT 98
[2019-05-23] MEDS: ALBUTEROL SULFATE 2.5 MG/0.5 ML INH NEB SOLN NEB SCH ×6 (04:06→23:38)
[2019-05-23] MEDS: SODIUM CHLORIDE 0.9% INJ 10 ML SYR IV PRN ×2 (06:14→20:19)
[2019-05-23] MEDS: SODIUM CHLORIDE 0.9% INJ 10 ML SYR IV SCH ×3 (06:14→20:18)
[2019-05-23] MEDS: TIOTROPIUM INHALER/CAPSULE (SPIRIVA) INH SCH (08:17)
[2019-05-23] MEDS: BUDESONIDE 0.5 MG/2 ML INHALATION SUSPENSION INH SCH ×2 (08:18→20:40)
--- NOTE | 2019-05-23 08:23 | REP ---
Clinical: Follow up pneumothorax. Technique: PA and lateral. Comparison: 05/22/2019. Findings: Chest tube has been removed. Left subclavian catheter with tip in the SVC. Moderate subcutaneous emphysema essentially unchanged. Mediastinum, cardiac silhouette, and bilateral lung park are stable. No obvious new acute process appreciated. Impression: 1. Status post left chest tube removal. 2. No significant change from prior examination. Electronically Signed by Lam Sewell MD 05/23/2019 08:14 A
[2019-05-23 08:26] LABS: HEMATOCRIT 40.9 % (42.0-52.0); HEMOGLOBIN 13.1 g/dl (13.5-17.5); MEAN CORPUSCULAR VOLUME 93.6 fl (80.0-96.0); PLATELET COUNT, AUTOMATED 459 10^3/uL (150-450); RED BLOOD COUNT 4.37 10^6/uL (4.30-6.10); WHITE BLOOD COUNT 23.5 10^3/uL (4.0-10.0)
[2019-05-23] MEDS: GABAPENTIN 100 MG CAP PO SCH ×3 (08:26→20:19)
[2019-05-23] MEDS: MOM 30ML SUSPENSION UDC PO SCH (08:27)
[2019-05-23] MEDS: predniSONE 20 MG TAB PO SCH (08:27)
[2019-05-23] MEDS: NYSTATIN 500,000 U/5 ML SUSP UDC SS SCH ×4 (08:27→20:19)
[2019-05-23] MEDS: ENOXAPARIN 30 MG/0.3 ML SYR (J1650) SC SCH (08:27)
[2019-05-23] MEDS: guaiFENesin ER 600 MG TAB PO SCH ×2 (08:27→20:19)
[2019-05-23] MEDS: DOCUSATE SODIUM 100 MG CAP PO SCH ×2 (08:27→20:19)
[2019-05-23] MEDS: TAMSULOSIN 0.4 MG CAP PO SCH (08:27)
[2019-05-23 09:04] LABS: BLOOD UREA NITROGEN 23 MG/DL (7-18); CARBON DIOXIDE LEVEL 33 MEQ/L (21-32); CHLORIDE LEVEL 96 MEQ/L (98-107); CREATININE FOR GFR 0.73 MG/DL (0.70-1.30); GLOMERULAR FILTRATION RATE > 60.0 (>49); GLUCOSE, FASTING 84 MG/DL (70-100); POTASSIUM SERUM 4.6 MEQ/L (3.5-5.1); SODIUM LEVEL 135 MEQ/L (136-145)
--- NOTE | 2019-05-23 12:44 | IPN ---
DATE: 05/23/2019 Mr. Liu chest tube has now been out for 24 hours and his chest x-ray shows his lung fully expanded to the chest wall. Subjectively, I think that his subcutaneous emphysema, both on physical examination and on the x-ray is decreased. He has not urinated since 4:00 a.m. and the nursing staff therefore did straight catheterization for 700 mL after a bladder scan showing 900 mL. He has had urinary retention off and on, and he is now on Flomax. His vital signs show a maximum temperature (t-max) of 98.1 with a heart rate that ranges between 81 and 94 in a sinus rhythm, respiratory rate of 18 to 19 without the use of accessory muscles, who is 98% saturated on 2 liters nasal cannula, and his blood pressure is ranging between 134/68 to 115/55. His intake and output the past 24 hours has been recorded as 1080 in and 3200 out for a negativity of 2120 mL. He has put out 3200 mL in urine. Weight today is 48.5 kg compared to 50.5 kg yesterday. PHYSICAL EXAMINATION: LUNGS: His lungs show some sounds of subcutaneous emphysema on the left side. Underneath, I hear no wheezes, rhonchi or rales. Breath sounds are equally reduced on both sides. Percussion note is full to the diaphragm. CARDIAC EXAM: Without murmurs, clicks, gallops or rubs. I cannot feel his point of maximum impulse (PMI). S1, S2 are normal. ABDOMEN: Soft, nontender. Bowel sounds positive. There is no hepatomegaly. No costovertebral angle tenderness. EXTREMITIES: Show no pretibial edema. No calf tenderness. No differential swelling of the upper extremities. SKIN: Warm, dry. He has some mottling around the knees. NECK: Supple. There is no jugular venous distention. No subcutaneous emphysema. Trachea is midline. MOUTH: Shows his mucous membranes to be pink and moist. Lips and commissures without lesions. His thrush has resolved. EYES: Show his pupils to be equal and reactive. Extraocular motion intact. Sclerae anicteric. NEUROLOGIC: Shows II through XII intact with gross motor and gross sensation intact. Gait is not tested. PSYCHIATRIC: Shows him to be awake and alert, oriented times three with appropriate mood and affect and conversational. LABORATORY DATA: His white count is back up to 23.5 from 14.1 yesterday. Hemoglobin and hematocrit are 13.1 and 40.9, respectively with a platelet count of 459 and stable. Chemistries show a sodium of 135 with a total CO2 of 33, which is the best that he has had since admission. BUN and creatinine are 23 and 0.73 with a calcium of 9.0. His chest x-ray, as discussed above, shows his lung fully expanded to the chest wall. Costophrenic angles are sharp. Diaphragms are flat. Subcutaneous emphysema looks to be qualitatively dissipating and less. IMPRESSION: 1. Alveolar pleural fistula, resolved. 2. 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 3. Spontaneous pneumothorax on the left secondary to bleb and bullae rupture. 4. 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 5. Chronic back pain. 6. Urinary retention. PLAN/DISCUSSION: From my perspective, I see no reason why he should not go home. I have discussed with him the fact that this may very well recur and that should his subcutaneous emphysema get worse or he gets more short of breath, that he should seek immediate medical attention. I am sending him home with his incentive spirometer. I do not think that he needs a Holley catheter to go home as his urinary retention has been off and on. I would recommend an outpatient urology workup. I will see him back in my office in 7 to 10 days with a chest x-ray.
--- NOTE | 2019-05-23 14:37 | IPNPDOC ---
Subjective Date Seen The patient was seen on 05/23/19. Subjective Chief Complaint/HPI Mr. Singh is a 79 year old male admitted with a diagnosis of COPD, severe, Gold stage IV, dyspnea and respiratory distress. He is seen sitting in the recliner today. Mr. Singh said his breathing continues to improve/return to his baseline. As of early this morning, he has not been able to urinate. He denied any abdominal or pelvic pain; he does have the urge but cannot void. We discussed elevated WBC; pt denied any Sx of fever/chills/malaise or night sweats. General: Reports: Normal Appetite; Denies: Chills, Night Sweats, Fatigue, Malaise Constitutional: Denies: Chills, Fever, Malaise, Night Sweats, Weakness, Fatigue Eyes: Denies: Pain ENT: Denies: Head Aches Skin: Denies: Rash Pulmonary: Reports: Dyspnea, Cough Cardiovascular: Denies: Chest Pain, Palpitations, Orthopnea, Edema, Lt Headedness Gastrointestinal: Denies: Abdominal Pain Genitourinary: Reports: Retention Musculoskeletal: Denies: Neck Pain, Back Pain, Joint Pain, Muscle Pain, Spasms Neurological: Denies: Weakness, Change in speech, Confusion Psych: Reports: Mood Normal Objective Physical Examination General Exam: Positive: Alert, Cooperative, Mild Distress (increased respiratory effort ), Other (frail, malnutritioned, cachextic) Eye Exam: Positive: Conjunctiva & lids normal, Sclera icteric ENT Exam: Positive: Atraumatic, Mucous membr. moist/pink, Pharynx Normal Neck Exam: Positive: Supple; Negative: JVD, thyromegaly Chest Exam: Positive: Diminished (b/l lungs ), Other (barrel chest); Negative: Clear to auscultation (superficial crepitus in L arm & chest that crosses the midline. very mild improvement ) Heart Exam: Positive: Tachycardic, Regular Rhythm, Normal S1, Normal S2, Murmurs (2/6 blowing murmur ) Abdomen Exam: Positive: Soft; Negative: Normal bowel sounds (crepirtus extends over upper abdomen ), Tenderness, Hepatospenomegaly Extremity Exam: Positive: Normal pulses, Swelling (L arm ); Negative: Clubbing, Cyanosis, Edema, Tenderness Skin Exam: Positive: Nl turgor and temperature Neuro Exam: Negative: Normal Speech (speaks in short spurts ) Psych Exam: Positive: Mental status NL, Mood NL, Oriented x 3 Assessment /Plan Assessment 68-year-old male with a history of severe GOLD stage IV Chronic obstructive pulmonary disease (COPD) with emphysema, history of nasal canula oxygen supplementation with exertion and at rest who presented to the emergency departm ent (ED) with worsening shortness of breath and respiratory distress. CT chest showed previously known emphysema and is seen as well as previously seen lung nodules. There was a moderate pneumothorax on the left size occupying perhaps 50% of the left hemithorax with possible very slight mediasti nal shift. Patient was also in acute respiratory failure with hypercarbia with copd exacerbation. patient had a Chest tube placed urgently with relief of the pneumothorax on 05/08. However he still continues to leak air. His Acute respiratory failure has resolved. However still remains extremely dyspneic with minimal exertion with tachycardia and desaturations needing prolonged period of increased oxygen flow to recover. As per pulmonary that probably is his baseline with his advanced COPD. Left Spontaneous Pneumothorax due to rupture of bulla / bleb s/p chest tube placement on 05/08, with SubQ Emphysema Prolonged air leak due to alveolar pleural fistula. Blood patch attempted 05/15 was unsuccessful CXR shows no evidence of pneumothorax and is fully expanded to the chest wall chest tube removed on 05/22/19. no pain or worsening dyspnea reported subQ emphysema showing mild improvement Continued management per Dr. Ritter Pneumonia completed azithromycin and ceftriaxone therapy final sputum culture result: E.coli with sensitivity to Rocephin Leukocytosis 14.1-23.5 today. This is probably reactive. CXR 05/23 shows no significant changes; possibly due to stress ie chest tube removal & continued Prednisone Tx and acute urinary retention. Procalcitonin repeated; pending Acute urinary retention in hospital Duoneb could be worsening it ,changed to albuterol and spiriva. bladder scan> 1000ml again on 05/13/19 Holley put back in. 1150 cc came out started on flomax Holley removed 05/19; no issues per nursing past few days 05/23/19 am having difficulty in voiding - ordered a bladder scan - 999ml per nursing. In and out cath ordered pt will need self-catheterization education and to demonstrate he is able to do so independently COPD exacerbation COPD/emphysema GOLD stage IV. Duoneb changed to albuterol and Spiriva due to urinary retention. continues budesonide and prednisone CXR today shows relatively stable S/P Acute respiratory failure with hypercarbia due to pneumothorax and COPD exacerbation now improved. Chronic back pain/Prior history of lumbar surgery will restart gabapentin at lower dose due to recent acute hypercarbia. History of alcohol use. history of tobacco dependency, quit in 2013. Severe malnutrition /pulmonary cachexia with severe muscle wasting and BMI of 17.6 Hypertension No history of HTN. However in hospital his blood pressures were high so started on amlodipine. Pt did well with PT 05/23/19 but cannot go home without proper self- catheterization education. He understands that if he does well, he may be d/c 05/24/18. Plan/VTE VTE Prophylaxis Ordered?: Yes VS, I&O, 24H, Fishbone Vital Signs/I&O Vital Signs Date Time Temp Pulse Resp B/P (MAP) Pulse Ox O2 Delivery O2 Flow Rate FiO2 05/23/19 12:00 3.0 05/23/19 12:00 97.8 104 21 142/66 (91) 98 Nasal Cannula I&O- Last 24 Hours up to 6 AM 05/23/19 06:00 Intake Total 780 ml Output Total 2550 ml Balance -1770 ml Laboratory Data 24H LABS Laboratory Tests 2 05/23/19 08:08: Nucleated Red Blood Cells % (auto) 0.0, Anion Gap 6L, Glomerular Filtration Rate > 60.0, Calcium Level 9.0# CBC/BMP Laboratory Tests 05/23/19 08:08 Attending Note I have personally performed a face to face diagnostic evaluation on this patient. I have reviewed and agree with the care plan documented above. TOMÁS SEGURA PA-C May 23, 2019 14:36 LIDIA AGUIRRE MD May 25, 2019 12:17
[2019-05-23] MEDS: amLODIPine 5 MG TAB PO SCH (20:20)
[2019-05-24] VITALS: BP 105/56
[2019-05-24 04:00] VITALS: BP 102/55
[2019-05-24] MEDS: ALBUTEROL SULFATE 2.5 MG/0.5 ML INH NEB SOLN NEB SCH ×3 (04:13→12:00)
[2019-05-24] MEDS: SODIUM CHLORIDE 0.9% INJ 10 ML SYR IV PRN (06:22)
[2019-05-24] MEDS: SODIUM CHLORIDE 0.9% INJ 10 ML SYR IV SCH (06:22)
[2019-05-24 06:53] LABS: MEAN CORPUSCULAR HGB CONC 32.4 g/dl (32.0-36.5); MEAN CORPUSCULAR VOLUME 92.4 fl (80.0-96.0); RED BLOOD COUNT 3.57 10^6/uL (4.30-6.10); WHITE BLOOD COUNT 13.4 10^3/uL (4.0-10.0)
[2019-05-24 06:57] LABS: HEMOGLOBIN 10.7 g/dl (13.5-17.5); PLATELET COUNT, AUTOMATED 327 10^3/uL (150-450)
[2019-05-24 07:10] LABS: BLOOD UREA NITROGEN 22 MG/DL (7-18); CALCIUM LEVEL 8.1 MG/DL (8.8-10.2); CARBON DIOXIDE LEVEL 33 MEQ/L (21-32); CHLORIDE LEVEL 97 MEQ/L (98-107); CREATININE FOR GFR 0.64 MG/DL (0.70-1.30); GLOMERULAR FILTRATION RATE > 60.0 (>49); GLUCOSE, FASTING 80 MG/DL (70-100); MAGNESIUM LEVEL 2.1 MG/DL (1.8-2.4); PHOSPHORUS LEVEL 2.5 MG/DL (2.5-4.9); SODIUM LEVEL 135 MEQ/L (136-145)
[2019-05-24 08:00] VITALS: BP 108/62; O2SAT 98
[2019-05-24] MEDS: TIOTROPIUM INHALER/CAPSULE (SPIRIVA) INH SCH (08:00)
[2019-05-24] MEDS: BUDESONIDE 0.5 MG/2 ML INHALATION SUSPENSION INH SCH (08:00)
[2019-05-24] MEDS: DOCUSATE SODIUM 100 MG CAP PO SCH (09:00)
[2019-05-24] MEDS ORDERED: predniSONE 10 MG TAB PO SCH (09:00)
[2019-05-24] MEDS: MOM 30ML SUSPENSION UDC PO SCH (09:00)
[2019-05-24] MEDS: GABAPENTIN 100 MG CAP PO SCH (09:51)
[2019-05-24] MEDS: NYSTATIN 500,000 U/5 ML SUSP UDC SS SCH ×2 (09:51→12:47)
[2019-05-24] MEDS: guaiFENesin ER 600 MG TAB PO SCH (09:52)
[2019-05-24] MEDS: TAMSULOSIN 0.4 MG CAP PO SCH (09:52)
[2019-05-24] MEDS: ENOXAPARIN 30 MG/0.3 ML SYR (J1650) SC SCH (09:53)
[2019-05-24] MEDS ORDERED: GABA-1171 PO ×3 (10:51→12:08)
[2019-05-24] MEDS ORDERED: AMLO5TAB6 PO ×3 (10:51→12:08)
[2019-05-24] MEDS ORDERED: ACET1TAB55 PO ×3 (10:51→12:08)
[2019-05-24] MEDS ORDERED: BUDE0.5S6 INH ×3 (10:51→12:08)
[2019-05-24] MEDS ORDERED: PRED10TA2 PO ×3 (10:51→12:08)
[2019-05-24] MEDS ORDERED: MUCI600T31 PO ×3 (10:51→12:08)
[2019-05-24] MEDS ORDERED: FLOM0.4C39 PO ×3 (10:51→12:08)
[2019-05-24] MEDS ORDERED: NYST50SS SS ×3 (10:51→12:08)
--- NOTE | 2019-05-24 12:33 | DS.PDOC ---
Discharge Summary General Date of Admission May 08, 2019 at 01:15 Date of Discharge 05/24/2019 Specialist/Consultants Involve Gary CHRISTIE MD Discharge Summary PROCEDURES PERFORMED DURING STAY: Chest tube placed/removed, blood patch ADMITTING DIAGNOSES: 1. Acute Respiratory Failure with hypercarbia 2. Left Pneumothorax 3. COPD/Emphysema GOLD stage IV 4. Acute Urinary Retention 5. Chronic Back Pain 6. History of Alcohol Use 7. Severe Malnutrition/Pulmonary Cachexia 8. COPD Exacerbation DISCHARGE DIAGNOSES: 1. Acute on Chronic Respiratory Failure with hypercarbia and hypoxia 2. Left Spontaneous Pneumothorax with Alveolo-pleural fistula and prolonged air leak 3. COPD/Emphysema GOLD stage IV 4. Acute Urinary Retention discharged with clement 5. Chronic Back Pain 6. History of Alcohol Use 7. Severe Malnutrition/Pulmonary Cachexia 8. HCAP 9. COPD Exacerbation 10.HTN 11. Reactive leucocytosis COMPLICATIONS/CHIEF COMPLAINT: Acute Resp Failure W/Hypercapnia;COPD;L Pneumonia. HISTORY OF PRESENT ILLNESS: "Mr. Singh is a 68-year-old male with a history of severe GOLD stage IV Chronic obstructive pulmonary disease (COPD) with em physema, history of nasal cannula oxygen supplementation with exertion and at rest who presented to the emergency department (ED) with worsening shortness of breath and respiratory distress. The patient was noted to be significantly tachypneic and using accessory muscles, was unable to speak in even short phrases. History was somewhat limited as the patient was in respiratory distress and unable to speak even in short phrases. He has had some increasing shortness of breath for the past few days as well as increased cough and some sputum production. He denied any chest pain. He denied any fevers or chills and no sick contacts. He was placed on BiPAP on transfer to the ED and was treated with steroids and nebulizer treatment by EMS. In the ED, the patient was given another dose of nebulizer treatment and was continued on BiPAP. He was tachycardic as well on presentation. He had imaging done initially with a chest x-ray, which showed emphysematous changes and hyperinflation as well as a pneumothorax on the left side more so in the base of the lung. He therefore had a CT chest done, which also confirmed the presence of a large left-sided pneumothorax. The patient was on in place on a non- rebreather pending my arrival to the ED given pneumothorax. On my arrival to the ED, the patient was significantly tachypneic with a respiratory rate in the 30s. He was using accessory muscles for respiration and abdominal breathing as well as tachycardic to heart rate of 140 and hypertensive with blood pressures in the one 80s. A the left-sided chest tube was placed then for his pn eumothorax with normal air and bubbling after placement. Immediately after placement, his heart rate did improve and his tachypnea and respiratory distress also improved." HOSPITAL COURSE: See above for ED/ICU treatment initiation. Pt admitted to the ICU where daily CXR were initiated to monitor post-procedure pneumothorax and he was placed on BiPAP in the ED. Azithromycin started for COPD exacerbation. 05/09/19 Pt was eventually weaned off BiPAP and ABGs improved w/in 24 hours. Started on Solu-Medrol taper, Mucinex and DuoNebs to manage COPD exacerbation. Pneumothorax improved, however he had a persistent air leak and became extremely dyspneic with minimal exertion. Clement placed due to acute urinary retention. Transferred to PCU 05/10/19, voiding trial initiated and lower dose (due to hypercarbia) Gabapentin initiated for back pain. 05/11/[address] showed new infiltrates, air leak and small pneumothorax persisted; CT surgery and Pulmonary consulted for management. Rocephin started, Azithromycin continued. 05/12/19 chest tube removed for suctioning, air leak persisted. CXR showed a fully expanded lung. 05/13 bladder scan showed urinary retention > 1000ml; Clement replaced and pt started on Flomax. 05/15/19 Dr. Ritter attempted a blood patch due to persistent air leak and pt being a poor candidate for talk pleurodesis and wedge resection. SubQ emphysema worsened s/p procedure and pt became more dyspneic. Pt was taken to the ICU where an anterior tube was placed laterally as Dr. Ritter suspected the blood patch had clotted around the tube. CT visualized large bulla in the left upper apex; due to pts poor clinical presentation and significant risk factors to further procedures, Dr. Ritter decided to take a watchful waiting approach. Over the following days, pt improved incrementally, eventually returning to his baseline. Chest tube was removed 05/22/19 as air geo k and pneumothorax resolved. Lungs continued to be imaged daily and showed lungs had expanded fully and SubQ emphysema had improved objectively and subjectively. After several days, he failed his voiding trial and requested a Clement as he does not feel comfortable with self-catheterization. Mr. Singh has been anxious to go home for several days now, he has returned to what he reports as his baseline and he has been cleared by PT/OT to do so with Home Health Services. He will also have close follow-up with Dr. Ritter and Urology. DISCHARGE MEDICATIONS: Please see below. ALLERGIES: Please see below. PHYSICAL EXAMINATION ON DISCHARGE: VITAL SIGNS: Please see below. General Exam: Positive: Alert, Cooperative, Mild Distress (increased respiratory effort ), Other (frail, malnutritioned, cachectic) Eye Exam: Positive: Conjunctiva & lids normal, Sclera icteric ENT Exam: Positive: Atraumatic, Mucous membr. moist/pink, Pharynx Normal Neck Exam: Positive: Supple; Negative: JVD, thyromegaly Chest Exam: Positive: Diminished (b/l lungs ), Other (barrel chest); Negative: Clear to auscultation (crepitus resolved in L arm; improved over L side of the chest & back ) Heart Exam: Positive: Tachycardic, Regular Rhythm, Normal S1, Normal S2, Murmurs (2/6 blowing murmur ) Abdomen Exam: Positive: Soft; Negative: Tenderness, Hepatospenomegaly Extremity Exam: Positive: Normal pulses; Negative: Clubbing, Cyanosis, Edema, Tenderness Skin Exam: Positive: Nl turgor and temperature Neuro Exam: Negative: Normal Speech (speaks in short spurts ) Psych Exam: Positive: Mental status NL, Mood NL, Oriented x 3 LABORATORY DATA: Please see below. IMAGING: Daily imaging; please refer to the chart ACTIVITY: As tolerated DIET: As tolerated DISCHARGE PLAN: Discharge Home with Home Health care. Follow-up with nephrology in 2 weeks Re: Acute urinary retention. Follow-up with Dr. Ritter in 7-10 days. DISPOSITION: Home with Home Health Services. DISCHARGE INSTRUCTIONS: Discharge Home with Home Health care. Follow-up with nephrology in 2 weeks Re: Acute urinary retention. Follow-up with Dr. Ritter in 7-10 days. ITEMS TO FOLLOWUP ON ON OUTPATIENT: as above DISCHARGE CONDITION: [Stable]. TIME SPENT ON DISCHARGE: 35 minutes Vital Signs/I&Os Vital Signs Date Time Temp Pulse Resp B/P (MAP) Pulse Ox O2 Delivery O2 Flow Rate FiO2 05/24/19 08:00 98.2 78 19 108/62 (77) 97 Nasal Cannula 3.0 I&O- Last 24 Hours up to 6 AM 05/24/19 05:59 Intake Total 1535 ml Output Total 4051 ml Balance -2516 ml Laboratory Data Labs 24H Laboratory Tests 2 05/24/19 06:26: Nucleated Red Blood Cells % (auto) 0.0, Anion Gap 5L, Glomerular Filtration Rate > 60.0, Calcium Level 8.1L, Phosphorus Level 2.5, Magnesium Level 2.1 CBC/BMP Laboratory Tests 05/24/19 06:26 Discharge Medications Scheduled Alendronate Sodium (Alendronate Sodium) 10 Mg Tablet, 10 MG PO DAILY for osteoperosis Budesonide/Formoterol (Symbicort 160-4.5 Mcg Inhaler) 6 Gm Hfa.aer.ad, 2 PUFF IN H BID Gabapentin (Gabapentin) 400 Mg Capsule, 1 CAP PO TID Guaifenesin (Mucinex) 600 Mg Tab.er.12h, 600 MG PO BID Nystatin (Nystatin Oral Susp) 100,000 Unit/1 Ml Oral.susp, 5 ML SS QID Prednisone (Prednisone) 10 Mg Tablet, 10 MG PO DAILY 1 PO qday x 3 days; then half PO qday x 3 days Tamsulosin HCl (Flomax) 0.4 Mg Capsule, 0.4 MG PO DAILY Umeclidinium [place] (Incruse Ellipta) 62.5 Mcg Blst.w.dev, 1 PUFF INH DAILY Scheduled PRN Acetaminophen (Acetaminophen) 325 Mg Tablet, 650 MG PO Q6HP PRN for PAIN OR FEVER Albuterol Sulfate (Ventolin Hfa) 18 Gm Hfa.aer.ad, 2 PUFF INH q4hrs PRN for wheezing Allergies Coded Allergies: No Known Allergies (Unverified , 05/07/19) Attending Note I have personally performed a face to face diagnostic evaluation on this patient. I have reviewed and agree with the care plan documented above. TOMÁS SEGURA PA-C May 24, 2019 12:33 LIDIA AGUIRRE MD May 25, 2019 16:50
[2019-05-24] MEDS ORDERED: VENTAER INH (12:38)
[2019-05-24] MEDS ORDERED: SYMB16INH INH (12:38)
[2019-05-24] MEDS ORDERED: TIOT18INH INH (12:38)
[2019-05-24] MEDS ORDERED: ALEN10TA21 PO (12:42)
[2019-05-24] MEDS ORDERED: GABA-845 PO (12:46)
[2019-05-24] MEDS ORDERED: INCR1INH INH (12:46)
== END 2019-05-24 13:48 | disposition home health service (06) | DRG 199 ==
LOC: M ED 22:41 → M ED INP 05-08 01:15 → ENRESERV 05-08 01:43 → M ICU 05-08 02:49 → M PCU 05-11 03:55 → M ICU 05-15 20:06 → M PCU 05-16 11:28
PROVIDERS: ADMIT Internal Medicine Pulmonary Disease; ATTEND Internal Medicine Nephrology
PROC: 0W9B30Z Drainage of Left Pleural Cavity with Drainage Device, Percutaneous Approach (ICD-10-PCS; principal; 2019-05-08)
PROC: 02HV33Z Insertion of Infusion Device into Superior Vena Cava, Percutaneous Approach (ICD-10-PCS; 2019-05-15)
PROC: 3E0L3GC Introduction of Other Therapeutic Substance into Pleural Cavity, Percutaneous Approach (ICD-10-PCS; 2019-05-15)
DX: J93.83 Other pneumothorax (principal); J96.22 Acute and chronic respiratory failure with hypercapnia; E43 Unspecified severe protein-calorie malnutrition; J86.0 Pyothorax with fistula; J15.5 Pneumonia due to Escherichia coli; J96.21 Acute and chronic respiratory failure with hypoxia; J44.1 Chronic obstructive pulmonary disease with (acute) exacerbation; R64 Cachexia; J44.0 Chronic obstructive pulmonary disease with (acute) lower respiratory infection; Z68.1 Body mass index [BMI] 19.9 or less, adult; B37.0 Candidal stomatitis; I10 Essential (primary) hypertension; R33.9 Retention of urine, unspecified; F10.10 Alcohol abuse, uncomplicated; Z79.899 Other long term (current) drug therapy; Z87.891 Personal history of nicotine dependence; R91.8 Other nonspecific abnormal finding of lung field; Z66 Do not resuscitate; M54.5 Low back pain

== ENCOUNTER 2020-10-15 13:58 | Inpatient (IN) | payer MEDICARE ==
[2020-10-15] VITALS (21 sets, daily range): BP systolic 63–175; BP diastolic 40–92
[~2020-10-15] VITALS: Ht 165.1 cm; Wt 47.8 kg
[~2020-10-15 13:58] MED LIST changes: +ACET1TAB55 PO; +ALEN10TA5 PO; +AMLO1TAB24 PO; +BUDE0.5S6 INH; +FLOM0.4C39 PO; +GABA-1171 PO; +GABA-282 PO; +GABA-283 PO; +INCR1INH INH; +MUCI600T31 PO; +NYST50SS SS; +SYMB16INH INH; +TIOT18INH INH; +VENTAER INH
[2020-10-15] MEDS ORDERED: NS 1,000 ML IV ONE (14:10)
[2020-10-15] MEDS ORDERED: ASPIRIN 81 MG CHEW TABLET PO ONE (14:10)
--- NOTE | 2020-10-15 14:38 | REP ---
INDICATION: DYSPNEA/COUGH COMPARISON: 05/23/2019 TECHNIQUE: Portable AP view of the chest FINDINGS: COPD/emphysematous changes are appreciated. There is a left-sided pneumothorax with approximately 10-15% loss of volume. No consolidation. No effusion. Mediastinum and cardiac silhouette are normal. IMPRESSION: Left-sided pneumothorax with approximately 15% loss of volume. No associated mediastinal shift. <Electronically signed by Lam Sewell > 10/15/20 [id number]
[2020-10-15 14:39] LABS: BASO # 0.1 10^3/uL (0.0-0.2); BASO % 0.7 % (0.0-1.0); EOS # 0.1 10^3/uL (0.0-0.5); EOS % 0.5 % (0.0-3.0); HEMATOCRIT 47.9 % (42.0-52.0); HEMOGLOBIN 15.6 g/dl (13.5-17.5); LYMPH # 2.2 10^3/uL (1.5-5.0); LYMPH % 10.5 % (24.0-44.0); MEAN CORPUSCULAR HEMOGLOBIN 29.7 pg (27.0-33.0); MEAN CORPUSCULAR HGB CONC 32.6 g/dl (32.0-36.5); MEAN CORPUSCULAR VOLUME 91.1 fl (80.0-96.0); MONO # 0.9 10^3/uL (0.0-0.8); MONO % 4.3 % (2.0-8.0); NEUTROPHILS # 17.7 10^3/uL (1.5-8.5); NEUTROPHILS % 83.4 % (36.0-66.0); PLATELET COUNT, AUTOMATED 498 10^3/uL (150-450); RED BLOOD COUNT 5.26 10^6/uL (4.30-6.10); WHITE BLOOD COUNT 21.2 10^3/uL (4.0-10.0)
[2020-10-15] MEDS: IPRATROPIUM 0.5MG/ALBUTEROL 2.5MG INH SOL UD 3ML (DUONEB) NEB PRN (14:48)
[2020-10-15 15:12] LABS: RSV AMPLIFICATION NEGATIVE (NEGATIVE)
[2020-10-15 15:15] LABS: ALBUMIN 4.1 GM/DL (3.2-5.2); ALT/SGPT 24 U/L (12-78); BILIRUBIN,DIRECT 0.1 MG/DL (0.0-0.2); BILIRUBIN,TOTAL 0.4 MG/DL (0.2-1.0); BLOOD UREA NITROGEN 20 MG/DL (7-18); CALCIUM LEVEL 9.4 MG/DL (8.8-10.2); CARBON DIOXIDE LEVEL 28 MEQ/L (21-32); CHLORIDE LEVEL 99 MEQ/L (98-107); CK-MB VALUE MASS 7.8 NG/ML (<3.6); CPK CREATINE PHOSPHOKINASE 221 U/L (39-308); CREATININE FOR GFR 0.98 MG/DL (0.70-1.30); GLOMERULAR FILTRATION RATE > 60.0 (>49); GLUCOSE, FASTING 178 MG/DL (70-100); MB/CK RELATIVE INDEX 3.53 (< OR =4); NT-PRO BNP 52 PG/ML (<125); POTASSIUM SERUM 4.5 MEQ/L (3.5-5.1); SODIUM LEVEL 135 MEQ/L (136-145); TOTAL PROTEIN 7.4 GM/DL (6.4-8.2); TROPONIN I < 0.02 NG/ML (< 0.10)
[2020-10-15] MEDS ORDERED: MIDAZOLAM INJ 2MG/2ML VIAL (J2250 PER 1MG) As Ordered ONE (15:36)
[2020-10-15] MEDS ORDERED: LIDOCAINE 1% MDV 20ML VIAL As Ordered ONE (15:38)
[2020-10-15] MEDS: D5W/0.9% SODIUM CHLORIDE 1,000 ML IV SCH (15:45)
--- NOTE | 2020-10-15 16:03 | REP ---
INDICATION: pneumo. Follow-up pneumothorax. 3:40 p.m. film. COMPARISON: Comparison chest x-ray 2:23 p.m. on 10/15/2020. TECHNIQUE: Portable upright chest radiograph, two views obtained AP.. FINDINGS: The lungs are hyperinflated as before. The patient is rotated somewhat to the right. There is a small left-sided pneumothorax again noted felt to be unchanged from the film done 1 hour and 20 minutes earlier. Lung park are otherwise clear.. IMPRESSION: Small left-sided pneumothorax unchanged from the film done earlier this afternoon. Patient is rotated somewhat to the right for the current exposures. Findings were discussed at the workstation at the time of the examination with Dr. Boateng.. <Electronically signed by Damon Wilson > 10/15/20 [id number]
[2020-10-15] MEDS ORDERED: NS 500 ML IV ONE (16:20)
--- NOTE | 2020-10-15 16:35 | REP ---
INDICATION: chest tube insertion COMPARISON: 10/15/2020 TECHNIQUE: Portable AP view of the chest FINDINGS: Left-sided chest tube has been placed and left-sided pneumothorax is improved. Underlying advanced COPD/emphysematous changes noted bilaterally. Mediastinum and cardiac silhouette are stable. Skeletal structures are intact. IMPRESSION: Left-sided chest tube with decreased left pneumothorax. <Electronically signed by Lam Sewell > 10/15/20 [id number]
[2020-10-15] MEDS ORDERED: LIDOCAINE 1% MDV 20ML VIAL SC ONE (17:00)
[2020-10-15] MEDS ORDERED: MIDAZOLAM INJ 2MG/2ML VIAL (J2250 PER 1MG) IV ONE (17:00)
[2020-10-15] MEDS: IPRATROPIUM 0.5MG/ALBUTEROL 2.5MG INH SOL UD 3ML (DUONEB) NEB SCH ×2 (17:04→19:45)
--- NOTE | 2020-10-15 17:06 | CCN ---
CRITICAL CARE NOTE DATE: 10/15/2020 I was called to the emergency department to evaluate this 65-year-old male with acute hypoxic hypercarbic respiratory failure. He has a past history of advanced obstructive airway disease (Gold classification #4) with predominant emphysema. He was brought to the emergency room in respiratory distress. Arterial blood gases showed respiratory acidosis, and a chest x-ray showed a small left pneumothorax. The patient had a similar episode in 2019, according to the electronic health record, requiring thoracostomy. At bedside he is unable to speak. Is gasping for breathing. His vital signs are temperature 99, pulse rate 100, respirations 28, blood pressure 138/94. He is in severe respiratory distress. HEENT: His oral mucosa is dry. His is cachectic. His neck is supple. There is no meningismus. No subcutaneous air is appreciable. The heart sounds are muffled and distant. Breath sounds markedly diminished bilaterally. Expiratory phase is prolonged. Chest is profoundly increased in its AP diameter and moves symmetrically with accessory muscle engagement with every breath. There is hyperresonance to percussion of the chest. Diaphragm motion is minimal. Abdomen is soft, sunken with bowel sounds in right lower quadrant. Extremities show some mottling, muscle wasting. DIAGNOSTIC STUDIES: His white cell count is 21.2. Hemoglobin is 15.6, hematocrit 47.9, platelets 498,000. Differential white cell count shows 83.4% neutrophils. Sodium is 135, potassium 4.5, chloride 99, CO2 is 28, BUN 20, creatinine 0.98, glucose 178. His calcium is 9.4. Albumin is 4.1, AST 18, ALT 24, alkaline phosphatase 182. CPK 221. Arterial blood gas show a pH of 7.09, pCO2 of 105, pO2 of 134. Chest x-ray shows a small left pneumothorax and anatomic emphysema. Subsequently chest x-ray 1 hour after noninvasive ventilation continues to show a small left pneumothorax, unchanged in size. The patient is rotated on the second film. The patient presented to the hospital with paperwork indicating DO NOT RESUSCITATE, DO NOT INTUBATE as his wishes. I have spoke with his brother via telephone, who confirms that these were his wishes and understands that he is critically ill at current. The primary problem requiring critical attention acute renal failure with hypoxemia and hypercarbia. We will initiate noninvasive positive pressure ventilation and recheck arterial blood gases. Left pneumothorax. The repeat chest x-ray does not show significant change in size of the pneumothorax. Nonetheless, he is at significant risk of deterioration due to the pressure therapy. I have consulted Dr. Ritter to see him for stat thoracostomy. End-stage obstructive lung disease with anatomic emphysema. Will initial nebulized bronchodilators. Protein-calorie malnutrition. Pulmonary cachexia. When the patient is able to take them, will initiate supplements to his diet. Deep venous thrombosis (DVT) prophylaxis will be addressed with subcutaneous heparin. I have reviewed the case with the emergency department staff and intensive care unit (ICU) team, and we have facilitated a stat transfer now to the intensive care unit. The patient continues to display gasping respiratory efforts. Dr. Ritter has now placed a left thoracostomy tube with initial return of air. No obvious air leak is appreciated. The exchange tidal volume has improved. Oxygen has improved; however, his blood pressure has fallen. Will initiate IV fluids to address the hypotension. The patient's condition is critical. Prognosis is guarded. One hundred and thirty-four minutes was spent in the provision of bedside critical care and coordination, excluding any time for the performance of any procedures.
[2020-10-15 17:09] LABS: ABG BASE EXCESS -5.1 (-2.0-2.0); ABG HCO3 21.3 MEQ/L (22.0-26.0); ABG O2 SATURATION 94.1 % (95.0-99.0); ABG PARTIAL PRESSURE CO2 44.7 mmHg (35.0-45.0); ABG PARTIAL PRESSURE O2 76.7 mmHg (75.0-100.0); ABG STANDARD HCO3 20.2 MEQ/L (22.0-26.0); ABG TOTAL CO2 22.7 MEQ/L (23.0-31.0); ABG pH (ARTERIAL) 7.296 UNITS (7.350-7.450)
[2020-10-15] MEDS: HEPARIN SOD (PORCINE) 5000UNITS/ML 1ML VIAL/SYRINGE SC SCH ×2 (17:54→21:04)
[2020-10-15] MEDS ORDERED: GABA-283 PO (18:05)
[2020-10-15] MEDS ORDERED: SYMB16INH INH (18:05)
[2020-10-15] MEDS ORDERED: AMLO1TAB24 PO (18:05)
[2020-10-15] MEDS ORDERED: ALBU8.5H INH (18:05)
[2020-10-15] MEDS ORDERED: INCR1INH INH (18:05)
[2020-10-15] MEDS ORDERED: PATIENT COMMENT (18:06)
--- NOTE | 2020-10-15 21:38 | ECGEPIP ---
[facility] - ED Test Date: 2020-10-15 Pat Name: MIRIAM DIETZ Department: Room: - Gender: Male Aboriginal [employer]ant: LR : 1955-10-15 Requested By: VALENTE MEZA Order Number: [id number] Reading MD: Gill Nathan Measurements Intervals [place] Rate: 102 P: 60 [place]: 124 QRS: 64 QRSD: 74 T: 71 QT: 344 QTc: 448 Interpretive Statements Sinus tachycardia prwp NSTTW abnormalities decreased rate 05/07/19 Electronically Signed on 10-15-2020 21:38:31 EDT by Gill Nathan
[2020-10-16] VITALS (9 sets, daily range): BP systolic 99–181; BP diastolic 57–91
[2020-10-16 04:34] LABS: BASO % 0.1 % (0.0-1.0); LYMPH # 0.4 10^3/uL (1.5-5.0); LYMPH % 2.5 % (24.0-44.0); MEAN CORPUSCULAR HEMOGLOBIN 29.3 pg (27.0-33.0); MEAN CORPUSCULAR HGB CONC 33.1 g/dl (32.0-36.5); MEAN CORPUSCULAR VOLUME 88.6 fl (80.0-96.0); MONO # 0.9 10^3/uL (0.0-0.8); MONO % 5.5 % (2.0-8.0); NEUTROPHILS # 15.7 10^3/uL (1.5-8.5); NEUTROPHILS % 91.3 % (36.0-66.0); WHITE BLOOD COUNT 17.2 10^3/uL (4.0-10.0)
[2020-10-16] MEDS: D5W/0.9% SODIUM CHLORIDE 1,000 ML IV SCH ×2 (04:39→19:33)
[2020-10-16 04:40] LABS: HEMOGLOBIN 12.9 g/dl (13.5-17.5); PLATELET COUNT, AUTOMATED 305 10^3/uL (150-450)
[2020-10-16 05:03] LABS: ALBUMIN 3.1 GM/DL (3.2-5.2); ALT/SGPT 23 U/L (12-78); BILIRUBIN,TOTAL 0.3 MG/DL (0.2-1.0); BLOOD UREA NITROGEN 18 MG/DL (7-18); CALCIUM LEVEL 8.5 MG/DL (8.8-10.2); CARBON DIOXIDE LEVEL 29 MEQ/L (21-32); CHLORIDE LEVEL 106 MEQ/L (98-107); CHOLESTEROL LEVEL 143 MG/DL (< 200); CPK CREATINE PHOSPHOKINASE 484 U/L (39-308); CREATININE FOR GFR 0.78 MG/DL (0.70-1.30); GLOMERULAR FILTRATION RATE > 60.0 (>49); GLUCOSE, FASTING 138 MG/DL (70-100); LDH LACTATE DEHYDROGENASE 218 U/L (87-241); PHOSPHORUS LEVEL 3.5 MG/DL (2.5-4.9); POTASSIUM SERUM 4.6 MEQ/L (3.5-5.1); SODIUM LEVEL 139 MEQ/L (136-145); TOTAL PROTEIN 5.8 GM/DL (6.4-8.2); TRIGLYCERIDES LEVEL 57 MG/DL (<150)
[2020-10-16] MEDS: HEPARIN SOD (PORCINE) 5000UNITS/ML 1ML VIAL/SYRINGE SC SCH ×3 (05:13→21:30)
[2020-10-16 05:33] LABS: ABG BASE EXCESS -0.5 (-2.0-2.0); ABG HCO3 24.6 MEQ/L (22.0-26.0); ABG O2 SATURATION 96.5 % (95.0-99.0); ABG PARTIAL PRESSURE CO2 42.2 mmHg (35.0-45.0); ABG PARTIAL PRESSURE O2 84.6 mmHg (75.0-100.0); ABG STANDARD HCO3 24.1 MEQ/L (22.0-26.0); ABG TOTAL CO2 25.9 MEQ/L (23.0-31.0); ABG pH (ARTERIAL) 7.384 UNITS (7.350-7.450)
[2020-10-16] MEDS: IPRATROPIUM 0.5MG/ALBUTEROL 2.5MG INH SOL UD 3ML (DUONEB) NEB SCH (07:28)
--- NOTE | 2020-10-16 07:44 | REP ---
INDICATION: left PTX COMPARISON: 10/15/2020 TECHNIQUE: Portable AP view of the chest FINDINGS: Left-sided chest tube in stable position with very small residual left apical pneumothorax improved from prior examination. The bilateral lung park demonstrate chronic COPD and interstitial changes. No focal consolidation or obvious pleural fluid. Mediastinum and cardiac silhouette are stable and grossly within normal limits. Skeletal structures stable. IMPRESSION: Small residual left apical pneumothorax. No acute consolidation or effusion. <Electronically signed by Lam Sewell > 10/16/20 0703
[2020-10-16] MEDS: SYMBICORT 160/4.5MCG INHALER 6GM INH SCH ×2 (11:29→19:38)
[2020-10-16] MEDS: TIOTROPIUM INHALER/CAPSULE (SPIRIVA) INH SCH (11:29)
--- NOTE | 2020-10-16 11:43 | CCN ---
CRITICAL CARE NOTE DATE: 10/16/2020 SUBJECTIVE: The patient is seen in the intensive care unit. This is hospital day #2, ICU day #2, chest tube day #2. Over the past 24 hours, he was weaned from noninvasive positive pressure ventilation. OBJECTIVE: GENERAL: At bedside, his temperature is 99, pulse rate 77, respirations 22, blood pressure 131/60. INTAKE AND OUTPUT: For the past 24 hours, 1639 in and 295 out; since midnight 526 in and 475 out. GENERAL: At bedside, he is ill-appearing and cachectic. He is able to respond to questions this morning. HEENT: Oral mucosa is pink. NECK: Supple. There is no stridor. No adenopathy. There is no subcutaneous air palpable. Jugular veins are 2 cm distended. LUNGS: Breath sounds are markedly diminished bilaterally. CHEST: Increased in its AP diameter. There are no focal adventitial breath sounds appreciated. Bronchoscopy tube is in the left chest wall. No air leak is appreciated on 20 cm of suction. HEART: Sounds are regular without appreciable murmur and quite distant. ABDOMEN: Soft with intact bowel sounds, sunken. EXTREMITIES: Show muscle weakness. Pulses are palpable x4. DIAGNOSTIC STUDIES: His white cell count is down at 17.2. Differential white cell count continues to show 91% neutrophils. Hemoglobin is 12.9, hematocrit 39.0, platelet count 305,000. Sodium is 139, potassium 4.6, chloride 106, CO2 of 29, BUN 18, creatinine down at 0.78, and glucose 138. His calcium is 8.5 on an albumin of 3.1. Phosphorus is 3.5. ALT and AST are normal at 23 and 24 respectively. His alkaline phosphatase is down at 138. LDH is 218. CPK is up at 484 from 221. His troponin on admission was less than 0.02. Arterial blood gases performed earlier show a pH of 7.38, pCO2 of 42, pO2 of 84 a substantial improvement. Chest imaging was reviewed and the report is pending. The left lung is fully inflated. I see little if any subcutaneous air. Thoracostomy tube is in good position in the left side. ASSESSMENT AND PLAN: 1. The primary problem requiring critical attention is acute hypoxic hypercarbic respiratory failure. The patient has now been weaned from noninvasive ventilation and we will follow gas exchange. 2. Hypoxemia. Saturations are acceptable on supplemental oxygen via nasal cannula. 3. Left pneumothorax spontaneous. This is day #2 of thoracostomy. There is no air leak on 20 cm of water suction and his lung is inflated to the chest wall. 4. Emphysema and chronic obstructive pulmonary disease. The patient will be restarted on long-acting beta agonist, long acting inhaled corticosteroid, and long-acting anticholinergic therapy today. We will change his short acting agents to p.r.n. 5. Protein-calorie malnutrition. Will initiate supplements with his diet. 6. Deep vein thrombosis (DVT) prophylaxis is being addressed with subcutaneous heparin. Condition remains critical. Prognosis remains guarded. I have reviewed the case with the ICU nursing team. Plans of care for the day have been updated. CRITICAL CARE TIME: 57 minutes was spent in the provision of bedside critical care and coordination, excluding any time for the performance of procedures.
--- NOTE | 2020-10-16 12:21 | RO ---
OPERATIVE NOTE DATE OF OPERATION: 10/15/2020 I was called by Dr. Boateng of the [employer] service to evaluate and treat a small pneumothorax on the left. Patient came to the emergency room in acute respiratory failure, gasping for air and severely hypercarbic. He has a small pneumothorax in the left lateral inferior hemithorax. DESCRIPTION OF PROCEDURE: After satisfactory moderate sedation achieved with 1 mg of Versed, patient was prepped and draped in the usual sterile fashion. The proposed incision site at approximately the 6th or 7th intercostal space was infiltrated with 1% lidocaine to the pleura. Incision was made, and a tunnel was created in the chest without difficulty. A #20 chest tube was then placed. Chest tube was secured to the chest wall with #2 Tevdek suture and connected to the Pleur-evac. There was an initial air leak, which was then stopped. Blood pressures and heart rate decreased to the low 100s from the 130s. While he was on continuous positive airway pressure (CPAP) his breathing seemed improved. Although a small pneumothorax, his underlying COPD is severe enough for this size pneumothorax to push him over the edge resulting in acute respiratory failure and severe hypercarbia. Postprocedure chest x-ray showed the lung fully expanded to the chest wall with some residual subpulmonic air. Patient tolerated the procedure well. AMANDA
[2020-10-16] MEDS: amLODIPine 5 MG TAB PO SCH (16:49)
[2020-10-16] MEDS: IPRATROPIUM 0.5MG/ALBUTEROL 2.5MG INH SOL UD 3ML (DUONEB) NEB PRN (19:38)
[2020-10-17] VITALS: BP 165/107
[2020-10-17 04:00] VITALS: BP 138/77
[2020-10-17 05:16] LABS: BASO % 0.3 % (0.0-1.0); EOS % 0.1 % (0.0-3.0); HEMATOCRIT 42.2 % (42.0-52.0); HEMOGLOBIN 13.7 g/dl (13.5-17.5); LYMPH # 0.7 10^3/uL (1.5-5.0); LYMPH % 5.1 % (24.0-44.0); MEAN CORPUSCULAR HEMOGLOBIN 29.2 pg (27.0-33.0); MEAN CORPUSCULAR HGB CONC 32.5 g/dl (32.0-36.5); NEUTROPHILS # 12.6 10^3/uL (1.5-8.5); NEUTROPHILS % 87.2 % (36.0-66.0); PLATELET COUNT, AUTOMATED 247 10^3/uL (150-450); RED BLOOD COUNT 4.69 10^6/uL (4.30-6.10); WHITE BLOOD COUNT 14.4 10^3/uL (4.0-10.0)
[2020-10-17 05:48] LABS: ALBUMIN 3.2 GM/DL (3.2-5.2); ALT/SGPT 27 U/L (12-78); BILIRUBIN,TOTAL 0.4 MG/DL (0.2-1.0); BLOOD UREA NITROGEN 13 MG/DL (7-18); CALCIUM LEVEL 8.6 MG/DL (8.8-10.2); CARBON DIOXIDE LEVEL 31 MEQ/L (21-32); CHLORIDE LEVEL 106 MEQ/L (98-107); CHOLESTEROL LEVEL 148 MG/DL (< 200); CPK CREATINE PHOSPHOKINASE 387 U/L (39-308); CREATININE FOR GFR 0.78 MG/DL (0.70-1.30); GLOMERULAR FILTRATION RATE > 60.0 (>49); GLUCOSE, FASTING 88 MG/DL (70-100); LDH LACTATE DEHYDROGENASE 354 U/L (87-241); PHOSPHORUS LEVEL 2.1 MG/DL (2.5-4.9); SODIUM LEVEL 140 MEQ/L (136-145); TOTAL PROTEIN 6.7 GM/DL (6.4-8.2); TRIGLYCERIDES LEVEL 91 MG/DL (<150)
[2020-10-17] MEDS: HEPARIN SOD (PORCINE) 5000UNITS/ML 1ML VIAL/SYRINGE SC SCH ×3 (06:17→21:17)
[2020-10-17] MEDS: SYMBICORT 160/4.5MCG INHALER 6GM INH SCH ×2 (07:24→19:21)
[2020-10-17] MEDS: TIOTROPIUM INHALER/CAPSULE (SPIRIVA) INH SCH (07:24)
[2020-10-17 08:00] VITALS: BP 133/63
--- NOTE | 2020-10-17 08:11 | REP ---
INDICATION: left PTX. COMPARISON: Comparison study 6:49 a.m. on October 16, 2020. TECHNIQUE: Portable upright AP chest radiograph. FINDINGS: Left-sided chest tube is again noted in place. There is a tiny sliver of pleural air at the superolateral aspect of the left upper lobe somewhat decreased from yesterday's radiograph. No new infiltrate is seen. Interstitial fibrosis is noted in the right base and in the apices. Heart is not enlarged. Lungs remain hyperinflated. Old healed rib fractures are noted bilaterally.. IMPRESSION: Left chest tube in place. No new infiltrate. Tiny residual left apical pleural air collection.. <Electronically signed by Damon Wilson > 10/17/20 0857
[2020-10-17] MEDS: amLODIPine 5 MG TAB PO SCH (09:20)
--- NOTE | 2020-10-17 11:14 | CCN ---
CRITICAL CARE NOTE DATE: 10/17/2020 SUBJECTIVE: The patient is seen in the Intensive Care Unit. This is ICU day number three, hospital day number three, left chest tube day number three. He rested reasonably well through the night, remains dyspneic with minimal activity. His appetite is poor but he is attempting to eat. OBJECTIVE: Vital signs: Temperature 98.6, T-max for the past 24 hours 99, pulse rate is 80, respiratory rate 24, blood pressure 133/63 down from 184/91. Saturation is 98% at this moment on 2 liters of oxygen via nasal cannula. His input and output for the past 24 hours: 1996 in, 2410 out. Since midnight, 360 in, 555 out. General: He is ill-appearing and cachectic. HEENT: His mucosa is pink. His dentures are in place. Neck is supple. Jugular veins not distended. Carotid upstrokes sluggish, no bruit. Heart sounds are muffled and diminished but regular. No appreciable murmur. Lungs: Breath sounds globally diminished. Chest is symmetric, increased in its AP diameter. Moves symmetrically with accessory muscles engaged during conversation. There is significant hyperresonance to percussion. No dullness. He has no wheezing, no rales, no rhonchi. The left thoracostomy site is clean with no induration. Tube is in good place, has not moved. Abdomen is soft, sunken w bowel sounds in the right lower quadrant. Extremities show muscle wasting. Peripheral pulses diminished. There is some bruising on the skin. DIAGNOSTIC STUDIES: His white cell count is down at 14.4, hemoglobin is up at 13.7, hematocrit is up at 42.2. Platelet count is stable at 247. Differential white cell count shows 87.2% neutrophils. Electrolytes: Sodium 140, potassium 4.0, chloride 106, CO2 31, BUN 13, 0.78, glucose 88. Calcium is 8.6 and an albumin of 3.2, phosphorus is slightly diminished at 2.1. The liver enzymes are normal. AST 31, ALT 27, alkaline phosphatase is 145. LDH is 354. CPK 387. Chest imaging was reviewed. A formal report is pending. The lungs are well inflated. Thoracostomy tube is unchanged when compared to yesterday's image. There is a sliver of air in the left apex. Diaphragms are flat, no infiltrates. On medications review he is receivin. Albuterol and ipratropium via nebulizer. 2. Norvasc was started last evening at 5 mg daily in light of the hypertension. 3. Spiriva 18 mcg once daily. 4. Symbicort 160/4.5 twice a day. 5. Heparin 5000 units every 8 hours. 6. An IV is infusing with D5 and saline at 60 mL per hour. The primary problem requiring critical attention is acute hypercarbic hypoxic respiratory failure. The patient is improving. His oxygen needs are better. He has been off noninvasive ventilation at this point and is nearing his baseline. Left pneumothorax. There is a sliver of air in the left apex. However, the chest x-ray shows no infiltrates. Tube is in good position. There is no air leak in the Pleur-evac. Perhaps clamping the tube today would be an option. We will await thoracic surgery. Emphysema. Chronic obstructive pulmonary disease. The patient is receiving little relief with inhaled agents. His primary problem appears to be hyperinflation. Hypophosphatemia. We will replace phosphorus and recheck. Hypertension. The patient responded well to Amlodipine. Deconditioning. We will ask Physical Therapy and Occupational Therapy to evaluate him and treat him today concentrating on energy conservation techniques given his advanced emphysema. Protein calorie malnutrition. Supplements are in place to maintain his weight. DVT prophylaxis is being addressed with subcutaneous Heparin. I have reviewed the patient's status and care plans for the day with the ICU care team. His condition remains critical. ICU care appropriate. Prognosis is fair. Sixty two minutes were spent in the provision of bedside critical care and coordination excluding any time spent for the performance of procedures.
[2020-10-17] MEDS: D5W/0.9% SODIUM CHLORIDE 1,000 ML IV SCH (11:20)
[2020-10-17 12:00] VITALS: BP 117/68
[2020-10-17] MEDS: K-PHOS NEUTRAL 250MG TABLET (SOD.PHOSPHATE/POT.PHOSPHATE) PO SCH ×3 (12:33→21:17)
[2020-10-17 16:00] VITALS: BP 146/73
[2020-10-17 19:47] VITALS: BP 148/82
[2020-10-18] VITALS (8 sets, daily range): BP systolic 122–174; BP diastolic 59–97
[2020-10-18 05:15] LABS: BASO # 0.1 10^3/uL (0.0-0.2); BASO % 0.6 % (0.0-1.0); EOS # 0.2 10^3/uL (0.0-0.5); EOS % 1.5 % (0.0-3.0); HEMATOCRIT 43.1 % (42.0-52.0); HEMOGLOBIN 14.2 g/dl (13.5-17.5); LYMPH # 0.9 10^3/uL (1.5-5.0); LYMPH % 7.2 % (24.0-44.0); MEAN CORPUSCULAR HEMOGLOBIN 29.3 pg (27.0-33.0); MEAN CORPUSCULAR HGB CONC 32.9 g/dl (32.0-36.5); NEUTROPHILS # 10.4 10^3/uL (1.5-8.5); NEUTROPHILS % 82.4 % (36.0-66.0); PLATELET COUNT, AUTOMATED 289 10^3/uL (150-450); RED BLOOD COUNT 4.84 10^6/uL (4.30-6.10); WHITE BLOOD COUNT 12.6 10^3/uL (4.0-10.0)
[2020-10-18] MEDS: IPRATROPIUM 0.5MG/ALBUTEROL 2.5MG INH SOL UD 3ML (DUONEB) NEB PRN (05:19)
[2020-10-18] MEDS: D5W/0.9% SODIUM CHLORIDE 1,000 ML IV SCH (05:24)
[2020-10-18] MEDS: HEPARIN SOD (PORCINE) 5000UNITS/ML 1ML VIAL/SYRINGE SC SCH ×3 (05:25→22:24)
[2020-10-18 05:36] LABS: ALT/SGPT 28 U/L (12-78); BILIRUBIN,TOTAL 0.5 MG/DL (0.2-1.0); BLOOD UREA NITROGEN 17 MG/DL (7-18); CALCIUM LEVEL 8.2 MG/DL (8.8-10.2); CARBON DIOXIDE LEVEL 29 MEQ/L (21-32); CHLORIDE LEVEL 107 MEQ/L (98-107); CHOLESTEROL LEVEL 137 MG/DL (< 200); CPK CREATINE PHOSPHOKINASE 273 U/L (39-308); CREATININE FOR GFR 0.67 MG/DL (0.70-1.30); GLOMERULAR FILTRATION RATE > 60.0 (>49); GLUCOSE, FASTING 88 MG/DL (70-100); LDH LACTATE DEHYDROGENASE 296 U/L (87-241); PHOSPHORUS LEVEL 2.6 MG/DL (2.5-4.9); SODIUM LEVEL 139 MEQ/L (136-145); TOTAL PROTEIN 6.6 GM/DL (6.4-8.2); TRIGLYCERIDES LEVEL 84 MG/DL (<150)
[2020-10-18] MEDS: TIOTROPIUM INHALER/CAPSULE (SPIRIVA) INH SCH (07:43)
[2020-10-18] MEDS: SYMBICORT 160/4.5MCG INHALER 6GM INH SCH ×2 (07:43→19:26)
--- NOTE | 2020-10-18 08:17 | CCN ---
CRITICAL CARE NOTE DATE: 10/18/2020 CRITICAL CARE TIME: 40 minutes; this excludes all procedures. SUBJECTIVE: Today is ICU day #4. The patient remains with a chest tube on suction without air leak. The patient is very tenuous and has difficulty with any movement. Refused to work with physical therapy yesterday. Appetite is poor. Remains DNR. OBJECTIVE: VITAL SIGNS: Temperature is 98.3 pulse is 86, respiratory rate is 20, blood pressure is 169/97 with a mean arterial pressure (MAP) of 121, oxygen saturation 97% on 2 liters. GENERAL: The patient is dyspneic with minimal conversation. HEENT: Sclerae clear and anicteric. Pupils equal and reactive to light. Mucous membranes moist without lesions. Oropharynx without erythema or exudate. NECK: Supple. No tracheal deviation or mass. LYMPHATICS: No cervical, supraclavicular, or axillary lymphadenopathy. CARDIAC: Distant S1, S2 without audible murmur, rub, or gallop. No elevated JVP. No peripheral edema. PULMONARY: Decreased breath sounds bilaterally without rales, rhonchi, or wheezes. There is prolongation of expiratory phase. Chest tube is present on the left lateral side. ABDOMEN: Soft, nontender, and nondistended with no hepatosplenomegaly. No masses or hernia. EXTREMITIES: No cyanosis or clubbing. MUSCULOSKELETAL: Significant muscle wasting. No evidence of fracture or joint effusion. LABORATORY DATA: Shows a white blood cell count of 12.6, hemoglobin 14.2, platelet count of 289,000. Chemistries show a sodium of 139, potassium 4.0, chloride 107, bicarb of 29, BUN of 17, creatinine of 0.67 with a calcium of 8.2. AST and ALT are unremarkable. Albumin is at 3.0. IMPRESSION AND PLAN: Severe respiratory distress with dyspnea with minimal movement. He may need additional resources at home. Needs to continue to participate with physical therapy. 1. Pneumothorax. Will place on water seal and monitor in the intensive care unit (ICU) for worsening symptoms. Will perform a chest x-ray at 11 o'clock to ensure that there is no evidence of reaccumulation of the pneumothorax. The patient remains in extreme tenuous status. 2. Severe end-stage emphysema. Continue with inhaled therapy with Spiriva, Symbicort, and DuoNebs. 3. Protein malnourishment. 4. Severe deconditioning. I will consult hospitalist service to potentially take over, as I predict the patient will require a prolonged hospital stay because of the severity of his deconditioning. At this point in time, I do not believe he is safe to go home.
--- NOTE | 2020-10-18 08:24 | REP ---
INDICATION: left PTX COMPARISON: 10/17/2020 TECHNIQUE: Portable AP view of the chest FINDINGS: Left chest tube in stable position. Near complete resolution to the left-sided pneumothorax. Mediastinum and cardiac silhouette are normal. Lung park demonstrate stable chronic changes. No acute process appreciated. IMPRESSION: 1. Essentially complete resolution to the left apical pneumothorax. 2. No new acute process appreciated. <Electronically signed by Lam Sewell > 10/18/20 0877
[2020-10-18] MEDS: amLODIPine 5 MG TAB PO SCH (09:02)
[2020-10-18] MEDS: K-PHOS NEUTRAL 250MG TABLET (SOD.PHOSPHATE/POT.PHOSPHATE) PO SCH ×3 (09:02→22:24)
[2020-10-18] MEDS ORDERED: FLUBLOK(EGG FREE)(QUAD)INFLUENZA VACC 0.5ML SYRINGE 18YRS & OLDER IM SCH (09:35)
--- NOTE | 2020-10-18 11:24 | IPNPDOC ---
Text Note Date of Service The patient was seen on 10/18/20. NOTE Brief Synopsis of hospital course: 65-year-old M with advanced obstructive airway disease (Gold classification #4) with predominant emphysema, chronic hypoxemic respiratory failure on home 3L NC, with high degree of debility at baseline with activity limited by exertional dyspnea with poor pulmonary reserve, who presented to the ED in respiratory distress and was found to be acute hypoxic hypercarbic respiratory failure with arterial blood gases showed respiratory acidosis, and a chest x-ray showed a small left pneumothorax. He was placed on BiPAP with some improvement on serial ABGs but with persistent pneumothorax and Dr. Ritter was consulted by pulm and placed a chest tube that is being managed by pulm and is currently on water seal. In the meantime, hypercarbia eventually improved and acidosis resolved and hypoxemia improved back to his recent baseline and he is now back on home 3L. Subjective: -No acute complaints -Speak in a short few words -After a conversation with Dr. Torres where she thought he would be hospice appropriate given the severity of his disease, I began the discussion with him but he declined it at this time. Objective: General: Thin, cachectic Head: bitemporal wasting, NCAT EENT: anicteric, no injection, nasal canula in place, MMM Pulm: Diminished sounds throughout with prolonged expiratory phase, barrel chest with profoundly increased AP diameter, no crackles, no wheezing noted Cardiac: RRR, no m/r/g Abd: scaphoid, soft, normoactive, NTND Ext: no LE edema, WWP Psych: AOx3 Labs: WBC 12.6 Hgb 14.2 platelets 289 Na 139 K 4 Cr 0.67 Assessment: 65-year-old M with advanced obstructive airway disease (Gold cl assification #4) with predominant emphysema, chronic hypoxemic respiratory failure on home 3L NC, with high degree of debility at baseline with activity limited by exertional dyspnea with poor pulmonary reserve, who presented to the ED in respiratory distress and was found to be acute hypoxic hypercarbic respiratory failure with a small left pneumothorax. Hypercarbic hypoxemic respiratory failure: -Hypercarbia resolved s/p BiPAP -Hypoxemia improved back to baseline, on 3L -continue symbicort, spiriva and PRN albuterol nebs COPD with emphysema: -treatment as noted above with symbicort, spiriva, PRN albuterol nebs and supplemental O2 Small left pneumothorax: -s/p chest tube by Dr. Ritter, now on water seal, being managed by pulmonology DVT ppx: heparin TID SC Dispo: ICU while with chest tube, in the meantime will have PT/OT, PFS consult for services VS,Fishbone, I+O VS, Fishbone, I+O Laboratory Tests 10/18/20 04:55 Vital Signs Date Time Temp Pulse Resp B/P (MAP) Pulse Ox O2 Delivery O2 Flow Rate FiO2 10/18/20 09:02 76 22 136/87 (103) 98 Nasal Cannula 3.0 10/18/20 08:00 97.6 10/15/20 18:00 21 I&O- Last 24 Hours up to 6 AM 10/18/20 06:00 Intake Total 1660 ml Output Total 1155 ml Balance 505 ml RITCHIE LIN MD October 18, 2020 11:24
--- NOTE | 2020-10-18 11:36 | REP ---
INDICATION: chest tube/ COMPARISON: 10/18/2020, 10/17/2020 TECHNIQUE: PA and lateral. FINDINGS: Left-sided chest tube in relatively stable position. A very small residual left apical pneumothorax cannot be excluded. The lung park are otherwise relatively chronic and stable. Chronic changes and blunting along diaphragmatic surfaces again noted. Small acute on chronic pleural reactions cannot be excluded. Mediastinum and cardiac silhouette stable. Skeletal structures stable. IMPRESSION: 1. Small residual left apical pneumothorax cannot be excluded. 2. Chronic changes. Subtle superimposed acute basilar changes cannot be excluded. <Electronically signed by Lam Sewell > 10/18/20 1133
[2020-10-19] VITALS (7 sets, daily range): BP systolic 131–172; BP diastolic 63–85
[2020-10-19 04:38] LABS: BASO # 0.1 10^3/uL (0.0-0.2); BASO % 0.6 % (0.0-1.0); EOS # 0.2 10^3/uL (0.0-0.5); EOS % 1.4 % (0.0-3.0); HEMATOCRIT 40.8 % (42.0-52.0); HEMOGLOBIN 13.3 g/dl (13.5-17.5); LYMPH # 0.7 10^3/uL (1.5-5.0); LYMPH % 6.2 % (24.0-44.0); MEAN CORPUSCULAR HEMOGLOBIN 28.9 pg (27.0-33.0); MEAN CORPUSCULAR HGB CONC 32.6 g/dl (32.0-36.5); MEAN CORPUSCULAR VOLUME 88.7 fl (80.0-96.0); MONO # 0.8 10^3/uL (0.0-0.8); MONO % 7.1 % (2.0-8.0); NEUTROPHILS # 9.7 10^3/uL (1.5-8.5); NEUTROPHILS % 84.4 % (36.0-66.0); PLATELET COUNT, AUTOMATED 290 10^3/uL (150-450); WHITE BLOOD COUNT 11.5 10^3/uL (4.0-10.0)
[2020-10-19] MEDS: HEPARIN SOD (PORCINE) 5000UNITS/ML 1ML VIAL/SYRINGE SC SCH ×3 (05:01→21:11)
[2020-10-19 05:14] LABS: ALBUMIN 2.9 GM/DL (3.2-5.2); ALT/SGPT 24 U/L (12-78); BILIRUBIN,TOTAL 0.5 MG/DL (0.2-1.0); BLOOD UREA NITROGEN 19 MG/DL (7-18); CALCIUM LEVEL 8.3 MG/DL (8.8-10.2); CARBON DIOXIDE LEVEL 35 MEQ/L (21-32); CHLORIDE LEVEL 103 MEQ/L (98-107); CHOLESTEROL LEVEL 132 MG/DL (< 200); CPK CREATINE PHOSPHOKINASE 136 U/L (39-308); CREATININE FOR GFR 0.68 MG/DL (0.70-1.30); GLOMERULAR FILTRATION RATE > 60.0 (>49); GLUCOSE, FASTING 81 MG/DL (70-100); LDH LACTATE DEHYDROGENASE 207 U/L (87-241); PHOSPHORUS LEVEL 3.2 MG/DL (2.5-4.9); POTASSIUM SERUM 3.7 MEQ/L (3.5-5.1); SODIUM LEVEL 141 MEQ/L (136-145); TOTAL PROTEIN 5.5 GM/DL (6.4-8.2); TRIGLYCERIDES LEVEL 74 MG/DL (<150)
--- NOTE | 2020-10-19 07:31 | REP ---
INDICATION: left PTX COMPARISON: Multiple examinations dating through 10/15/2020 TECHNIQUE: Portable AP view of the chest FINDINGS: A very small residual left apical pneumothorax cannot be excluded. Mediastinum and cardiac silhouette are within normal limits and stable. Aerated lung park demonstrate diffuse chronic COPD/interstitial changes. No obvious acute focal consolidation or effusion. Skeletal structures are stable. IMPRESSION: 1. Small residual left apical pneumothorax similar to prior examinations. 2. No new acute process appreciated. <Electronically signed by Lam Sewell > 10/19/20 0724
[2020-10-19] MEDS: TIOTROPIUM INHALER/CAPSULE (SPIRIVA) INH SCH (07:51)
[2020-10-19] MEDS: SYMBICORT 160/4.5MCG INHALER 6GM INH SCH ×2 (07:51→19:40)
[2020-10-19] MEDS: K-PHOS NEUTRAL 250MG TABLET (SOD.PHOSPHATE/POT.PHOSPHATE) PO SCH ×3 (09:21→20:11)
[2020-10-19] MEDS: amLODIPine 5 MG TAB PO SCH (09:21)
--- NOTE | 2020-10-19 10:21 | IPN ---
PROGRESS NOTE DATE: 10/19/2020 SUBJECTIVE: Mr. Singh is in bed. Yesterday afternoon, I did have a discussion regarding the fact that he was not participating in physical therapy. He was remaining in bed. I have asked him if he wanted to switch his goals of care to palliative. He states he would think about it. This morning he states he is willing to work with physical therapy. He does not want hospice at this point in time. Therefore goals are to be able to remove the chest tube and get him home. He does have a life-limiting disease with severe end stage emphysema, pulmonary cachexia, severe deconditioning and now with a small pneumothorax that has caused significant decompensation. OBJECTIVE: Vital signs: Temperature is 97.6, pulse is 71, respiratory rate is 22, blood pressure is 147/76 with a MAP of 99, oxygen saturation is 96% on 3 liters. General: Awake, alert and oriented. He did eat most of his breakfast this morning. HEENT: Sclerae are clear, nonicteric. Pupils are equal and reactive to light. Mucous membranes are moist. He is edentulous with dentures in place. Tongue is midline. Neck is supple. No tracheal deviation or mass. Lymph: No cervical, supraclavicular, or axillary adenopathy. Cardiac: Tachycardic, S1, S2 without audible murmur, rub, or gallop. No elevated JVP. No peripheral edema. Pulmonary: Decreased breath sounds bilaterally. Poor air entry bilaterally. Prolonged expiratory phase, no rales, rhonchi, or wheezes. Chest tube is in the left lateral position. Abdomen: Soft, nontender, nondistended, no hepatosplenomegaly. No masses or hernia. Extremities: No cyanosis or edema. Skin: No rash, jaundice or bruising. Musculoskeletal: Significant muscle wasting and cachexia. No joint effusion or evidence of recent fracture. Neuro: No unilateral weakness or asterixis. LABORATORY EVALUATION: White blood cell count 11.5, hemoglobin 13.3, platelet count of 290. Sodium is 141, potassium 3.7, chloride 103, bicarb of 35, BUN of 19, creatinine 0.68, calcium 8.3 with an alkaline phosphatase of 137, albumin of 2.9. Chest x-ray shows just a sliver of a pneumothorax on the left side. This is while he is on suction at -20 cm of water pressure. Otherwise no new infiltrate, mass, or lesion. ASSESSMENT/PLAN: 1. Pneumothorax, small persistent. We will keep on suction. There is no air leak currently. Small persistent pneumothorax. We will continue to monitor. May need patching if this is persistent. 2. Pulmonary cachexia. Encourage adequate nutrition. 3. End stage emphysema with severe deconditioning. The patient has been refusing physical therapy recently. I have explained to him he needs to participate in conditioning and good nutrition in order to be able to even attempt to survive this hospitalization. He expresses understanding and is now of a goal to participate daily with conditioning. As far as his emphysema, we will increase his nebulizers to scheduled to help with mucociliary clearance and we will also schedule Acapella as he has a slight cough. MTDD
--- NOTE | 2020-10-19 11:27 | IPNPDOC ---
Text Note Date of Service The patient was seen on 10/19/20. NOTE Subjective: -No acute events overnight, remains on baseline 3L -Chest tube still in, back on suction Objective: General: Thin, cachectic Head: bitemporal wasting, NCAT EENT: anicteric, no injection, nasal canula in place, MMM Pulm: Diminished sounds throughout with prolonged expiratory phase, barrel chest with profoundly increased AP diameter, no crackles, no wheezing noted Cardiac: RRR, no m/r/g Abd: scaphoid, soft, normoactive, NTND Ext: no LE edema, WWP Psych: AOx3 Labs: Reviewed WBC 11.5 Hgb 13.3 platelets 290 Na 141 K 3.7 Cr 0.68 Assessment: 65-year-old M with advanced obstructive airway disease (Gold classification #4) with predominant emphysema, chronic hypoxemic respiratory failure on home 3L NC, with high degree of debility at baseline with activity limited by exertional dyspnea with poor pulmonary reserve, who presented to the ED in respiratory distress and was found to be acute hypoxic hypercarbic respiratory failure with a small left pneumothorax. Hypercarbic hypoxemic respiratory failure: -Hypercarbia resolved s/p BiPAP -Hypoxemia improved back to baseline, on 3L -continue symbicort, spiriva and QID albuterol nebs COPD with emphysema: -treatment as noted above with symbicort, spiriva, PRN albuterol nebs and supplemental O2 Small left pneumothorax: -s/p chest tube by Dr. Ritter, being managed by pulmonology DVT ppx: heparin TID SC Dispo: ICU while with chest tube, in the meantime will have PT/OT, PFS consult for safe discharge planning VS,Santosh, I+O VS, Santosh, I+O Laboratory Tests 10/19/20 04:17 Vital Signs Date Time Temp Pulse Resp B/P (MAP) Pulse Ox O2 Delivery O2 Flow Rate FiO2 10/19/20 08:00 3.0 10/19/20 07:38 97.6 71 22 147/76 (99) 96 Nasal Cannula 10/15/20 18:00 21 I&O- Last 24 Hours up to 6 AM 10/19/20 05:59 Intake Total 1260 ml Output Total 734 ml Balance 526 ml RITCHIE LIN MD October 19, 2020 08:36
[2020-10-19] MEDS: IPRATROPIUM 0.5MG/ALBUTEROL 2.5MG INH SOL UD 3ML (DUONEB) NEB SCH ×3 (11:40→19:40)
[2020-10-19] MEDS: ACETAMINOPHEN TAB 650MG DOSE (2X325MG) PO PRN (13:51)
[2020-10-19] MEDS ORDERED: SLF 3 ML SYR IV PRN (15:55)
[2020-10-19] MEDS: SLF 3 ML SYR IV SCH (21:11)
[2020-10-20] VITALS (7 sets, daily range): BP systolic 126–179; BP diastolic 52–87
[2020-10-20 05:17] LABS: BASO # 0.1 10^3/uL (0.0-0.2); BASO % 0.7 % (0.0-1.0); EOS # 0.3 10^3/uL (0.0-0.5); EOS % 3.6 % (0.0-3.0); HEMATOCRIT 38.3 % (42.0-52.0); HEMOGLOBIN 12.5 g/dl (13.5-17.5); LYMPH # 0.7 10^3/uL (1.5-5.0); LYMPH % 10.6 % (24.0-44.0); MEAN CORPUSCULAR HEMOGLOBIN 28.9 pg (27.0-33.0); MEAN CORPUSCULAR HGB CONC 32.6 g/dl (32.0-36.5); MEAN CORPUSCULAR VOLUME 88.7 fl (80.0-96.0); MONO # 0.6 10^3/uL (0.0-0.8); NEUTROPHILS # 5.2 10^3/uL (1.5-8.5); NEUTROPHILS % 75.8 % (36.0-66.0); PLATELET COUNT, AUTOMATED 275 10^3/uL (150-450); RED BLOOD COUNT 4.32 10^6/uL (4.30-6.10); WHITE BLOOD COUNT 6.9 10^3/uL (4.0-10.0)
[2020-10-20] MEDS: HEPARIN SOD (PORCINE) 5000UNITS/ML 1ML VIAL/SYRINGE SC SCH ×3 (05:26→20:56)
[2020-10-20] MEDS: SLF 3 ML SYR IV SCH ×3 (05:27→21:04)
[2020-10-20 05:37] LABS: ALBUMIN 2.8 GM/DL (3.2-5.2); ALT/SGPT 20 U/L (12-78); BILIRUBIN,TOTAL 0.5 MG/DL (0.2-1.0); BLOOD UREA NITROGEN 18 MG/DL (7-18); CARBON DIOXIDE LEVEL 35 MEQ/L (21-32); CHLORIDE LEVEL 101 MEQ/L (98-107); CHOLESTEROL LEVEL 120 MG/DL (< 200); CPK CREATINE PHOSPHOKINASE 114 U/L (39-308); CREATININE FOR GFR 0.64 MG/DL (0.70-1.30); GLOMERULAR FILTRATION RATE > 60.0 (>49); GLUCOSE, FASTING 82 MG/DL (70-100); LDH LACTATE DEHYDROGENASE 185 U/L (87-241); PHOSPHORUS LEVEL 3.4 MG/DL (2.5-4.9); POTASSIUM SERUM 3.6 MEQ/L (3.5-5.1); SODIUM LEVEL 140 MEQ/L (136-145); TOTAL PROTEIN 5.4 GM/DL (6.4-8.2); TRIGLYCERIDES LEVEL 71 MG/DL (<150)
[2020-10-20] MEDS: IPRATROPIUM 0.5MG/ALBUTEROL 2.5MG INH SOL UD 3ML (DUONEB) NEB SCH ×4 (07:31→20:00)
[2020-10-20] MEDS: SYMBICORT 160/4.5MCG INHALER 6GM INH SCH ×2 (07:31→19:17)
[2020-10-20] MEDS: TIOTROPIUM INHALER/CAPSULE (SPIRIVA) INH SCH (07:31)
--- NOTE | 2020-10-20 08:24 | REP ---
INDICATION: left PTX COMPARISON: 10/19/2020 TECHNIQUE: Portable AP view of the chest FINDINGS: Left chest tube in stable position and very small residual left apical pneumothorax is again noted and unchanged. Mediastinum and cardiac silhouette are stable. Lung park demonstrate diffuse chronic COPD/emphysematous changes and scattered scarring. No new acute process identified. IMPRESSION: Small residual left apical pneumothorax unchanged. <Electronically signed by Lam Sewell > 10/20/20 0829
[2020-10-20] MEDS: K-PHOS NEUTRAL 250MG TABLET (SOD.PHOSPHATE/POT.PHOSPHATE) PO SCH ×3 (08:42→20:56)
[2020-10-20] MEDS: amLODIPine 5 MG TAB PO SCH (08:43)
[2020-10-20] MEDS ORDERED: amLODIPine 5 MG TAB PO ONE (10:00)
--- NOTE | 2020-10-20 10:31 | IPN ---
PROGRESS NOTE DATE: 10/20/2020 SUBJECTIVE: The patient states that he is feeling better, that his breathing is better. He is sitting upright; he has not yet had breakfast this morning. I have encouraged him to eat all three meals including protein shakes. He expressed understanding. He states that he has no chest pain. He seems to have symptomatic improvement from the use of inhaled therapy that I prescribed yesterday. His cough is less. Chest tube shows no leak at negative 20cm of suction. I am putting him again on water seal and obtaining a chest x-ray two hours after being put on water seal. OBJECTIVE: Vital signs: Temperature is 97.4, pulse is 80, respiratory rate is 18, blood pressure is 179/87, oxygen saturation is 93% on 3 liters. General: Awake, alert and oriented, voice is slightly stronger than yesterday. HEENT: Sclerae are clear, anicteric. Pupils are equal and reactive to light. Mucous membranes are moist. Tongue appears dry. Neck: Supple. No tracheal deviation, no mass. Lymph: No cervical, supraclavicular, or axillary adenopathy. Cardiac: Very distant S1, S2 without audible murmur, rub, or gallop but very difficult to hear breath sounds given his barrel chest. There is no peripheral edema. Pulmonary: Decreased breath sounds throughout both lung park, increased AP diameter, prolonged expiratory phase without expiratory wheeze or rhonchi. Chest tube is in place in the left lateral position. Abdomen: Scaphoid, soft, nontender, non-distended, no hepatosplenomegaly. No masses or hernia. Extremities: No cyanosis, clubbing or edema. Musculoskeletal: Significant muscle wasting without joint effusion or fracture. Neurologic: No unilateral weakness, tremor. LABORATORY EVALUATION: Wemsse077, potassium 3.6, chloride 101, bicarb of 35, BUN of 18, creatinine 0.64, calcium 8.0 with an albumin of 2.8. White blood cell count is 6.9 with hemoglobin of 12.5 and platelet count 275. Chest x-ray shows very hyperinflated chest with lifting of the cardiac silhouette off the diaphragm. Chest tube is in place in the left lateral position. Difficult to say but radiologist states that there is a believed persistent apical pneumothorax, I think that is in question. There is no effusion, no infiltrate, no mass or lesion. IMPRESSION: 1. Pneumothorax, slow to improve given the patient's underlying severe emphysema. I will place on water seal today and re-image in two hours to ensure that there is no re-accumulation of the pneumothorax. Preparing for the patient to potentially have the chest tube removed. 2. Pulmonary cachexia, again encouraging adequate nutrition. 3. End stage emphysema with severe deconditioning. He is now more interested in participating with physical therapy, however is uninterested in getting out of bed when he is not participating with physical therapy. Overall I do not believe he has much invested in his own personal recovery. 4. Hypertension. I have increased his Norvasc to 10 mg daily. DISPOSITION: Very difficult case as the patient has very little reserve for breathing, appears that he does not even ambulate well to the bathroom at home. He is approaching the point where there is very little that we can do for him as physicians and palliative care has been mentioned to him. At this point in time he does not seem to be interested in it. However, he is not interested in being involved too much in his recovery. There is definite conflict of interest. Will continue to help this patient towards his goals. However, I have serious reservations about his prognosis. AMANDA
--- NOTE | 2020-10-20 11:00 | IPNPDOC ---
Text Note Date of Service The patient was seen on 10/20/20. NOTE Subjective: -No acute events overnight, remains on baseline 3L -Chest tube still in Objective: General: Thin, cachectic Head: bitemporal wasting, NCAT EENT: anicteric, no injection, nasal canula in place, MMM Pulm: Diminished sounds throughout with prolonged expiratory phase, barrel chest with profoundly increased AP diameter, no crackles, no wheezing noted, is winded with speaking a few words and that is his recent baseline Cardiac: RRR, no m/r/g Abd: scaphoid, soft, normoactive, NTND Ext: no LE edema, WWP Psych: AOx3 Labs: Reviewed WBC 6.9 Hgb 12.5 platelets 275 Na 140 K 3.6 Cr 0.64 Assessment: 65-year-old M with advanced obstructive airway disease (Gold classification #4) with predominant emphysema, chronic hypoxemic respiratory failure on home 3L NC, with high degree of debility at baseline with activity limited by exertional dyspnea with poor pulmonary reserve, who presented to the ED in respiratory distress and was found to be acute hypoxic hypercarbic respiratory failure with a small left pneumothorax. Hypercarbic hypoxemic respiratory failure: -Hypercarbia resolved s/p BiPAP -Hypoxemia improved back to baseline, on 3L -continue symbicort, spiriva and QID albuterol nebs COPD with emphysema: -treatment as noted above with symbicort, spiriva, PRN albuterol nebs and supplemental O2 Small left pneumothorax: -s/p chest tube by Dr. Ritter, being managed by pulmonology HTN: -Pulm just adjusted his amlodipine from 5mg to 10mg daily for persistent HTN DVT ppx: heparin TID SC Dispo: ICU while with chest tube, in the meantime will have PT/OT, PFS consult for safe discharge planning VS,Fishbone, I+O VS, Fishbone, I+O Laboratory Tests 10/20/20 04:40 Vital Signs Date Time Temp Pulse Resp B/P (MAP) Pulse Ox O2 Delivery O2 Flow Rate FiO2 10/20/20 08:43 80 179/87 10/20/20 07:37 97.4 18 93 Nasal Cannula 3.0 10/15/20 18:00 21 I&O- Last 24 Hours up to 6 AM 10/20/20 06:00 Intake Total 358 ml Output Total 756 ml Balance -398 ml RITCHIE LIN MD October 20, 2020 08:59
--- NOTE | 2020-10-20 11:42 | REP ---
INDICATION: pneumothorax left COMPARISON: 10/20/2020 at 7:30 a.m. TECHNIQUE: PA and lateral. FINDINGS: There has been no change from prior examination. A small left apical pneumothorax is again noted. Remainder lung park demonstrate chronic COPD/emphysematous changes. No new acute process identified. IMPRESSION: No change from prior examination. Continued small left apical pneumothorax. <Electronically signed by Lam Sewell > 10/20/20 [id number]
[2020-10-21] VITALS: BP 128/80
[2020-10-21 04:00] VITALS: BP 130/74
[2020-10-21 05:32] LABS: HEMATOCRIT 37.7 % (42.0-52.0); HEMOGLOBIN 12.5 g/dl (13.5-17.5); MEAN CORPUSCULAR HEMOGLOBIN 29.3 pg (27.0-33.0); MEAN CORPUSCULAR HGB CONC 33.2 g/dl (32.0-36.5); MEAN CORPUSCULAR VOLUME 88.5 fl (80.0-96.0); PLATELET COUNT, AUTOMATED 249 10^3/uL (150-450); RED BLOOD COUNT 4.26 10^6/uL (4.30-6.10); WHITE BLOOD COUNT 6.8 10^3/uL (4.0-10.0)
[2020-10-21 06:04] LABS: ALBUMIN 2.6 GM/DL (3.2-5.2); ALT/SGPT 21 U/L (12-78); BILIRUBIN,TOTAL 0.4 MG/DL (0.2-1.0); BLOOD UREA NITROGEN 16 MG/DL (7-18); CARBON DIOXIDE LEVEL 31 MEQ/L (21-32); CHLORIDE LEVEL 101 MEQ/L (98-107); CREATININE FOR GFR 0.65 MG/DL (0.70-1.30); GLOMERULAR FILTRATION RATE > 60.0 (>49); GLUCOSE, FASTING 78 MG/DL (70-100); POTASSIUM SERUM 3.4 MEQ/L (3.5-5.1); SODIUM LEVEL 137 MEQ/L (136-145); TOTAL PROTEIN 5.6 GM/DL (6.4-8.2)
[2020-10-21] MEDS: SLF 3 ML SYR IV SCH ×3 (06:29→20:04)
[2020-10-21] MEDS: HEPARIN SOD (PORCINE) 5000UNITS/ML 1ML VIAL/SYRINGE SC SCH ×3 (06:29→20:04)
[2020-10-21 07:18] VITALS: BP 137/73
[2020-10-21] MEDS: IPRATROPIUM 0.5MG/ALBUTEROL 2.5MG INH SOL UD 3ML (DUONEB) NEB SCH ×4 (08:00→21:01)
[2020-10-21] MEDS: TIOTROPIUM INHALER/CAPSULE (SPIRIVA) INH SCH (08:00)
[2020-10-21] MEDS: SYMBICORT 160/4.5MCG INHALER 6GM INH SCH ×2 (08:00→21:01)
--- NOTE | 2020-10-21 08:29 | REP ---
INDICATION: pneumothorax COMPARISON: 10/20/2020 TECHNIQUE: PA and lateral. FINDINGS: Left chest tube in stable position. Small left apical pneumothorax again noted and essentially unchanged. Given the patient's advanced COPD and emphysematous disease along with scattered scarring this may reflect a new chronic change. No new acute process appreciated. Mediastinum and cardiac silhouette are within normal limits and stable. IMPRESSION: Small left apical pneumothorax unchanged. Stable chronic COPD/emphysematous changes and scattered scarring. No new acute process appreciated. <Electronically signed by Lam Sewell > 10/21/20 [id number]
[2020-10-21] MEDS: K-PHOS NEUTRAL 250MG TABLET (SOD.PHOSPHATE/POT.PHOSPHATE) PO SCH ×3 (08:31→20:04)
[2020-10-21] MEDS ORDERED: POTASSIUM CHLORIDE 10 MEQ SR TABLET PO ONE (09:00)
--- NOTE | 2020-10-21 09:30 | IPNPDOC ---
Text Note Date of Service The patient was seen on 10/21/20. NOTE Subjective: -No acute events overnight, remains on baseline 3L -Chest tube in place Objective: General: Thin, cachectic Head: bitemporal wasting, NCAT EENT: anicteric, no injection, nasal canula in place, MMM Pulm: Diminished sounds throughout with prolonged expiratory phase, barrel chest with profoundly increased AP diameter, no crackles, no wheezing, is winded with speaking a few words and that is his recent baseline Cardiac: RRR, no m/r/g Abd: scaphoid, soft, normoactive, NTND Ext: no LE edema, WWP Psych: AOx3 Labs: Reviewed K 3.4 (repleted) Assessment: 65-year-old M with advanced obstructive airway disease (Gold classification #4) with predominant emphysema, chronic hypoxemic respiratory failure on home 3L NC, with high degree of debility at baseline with activity limited by exertional dyspnea with poor pulmonary reserve, who presented to the ED in respiratory distress and was found to be acute hypoxic hypercarbic respiratory failure with a small left pneumothorax. Hypercarbic hypoxemic respiratory failure: -Hypercarbia resolved s/p BiPAP -Hypoxemia improved back to baseline, on 3L -continue symbicort, spiriva and QID albuterol nebs End stage COPD with emphysema: -treatment as noted above with symbicort, spiriva, PRN albuterol nebs and supplemental O2 -declined hospice at this time. Both Dr. Torres and myself discussed this option with him and he declined. He expressed that he will continue to try working with PT/OT and strive towards a home discharge with services. Small left pneumothorax: -s/p chest tube by Dr. Ritter, being managed by pulmonology with persistent small apical pneumothorax HTN: -Continue amlodipine 10mg daily DVT ppx: heparin TID SC Dispo: PCU while with chest tube, in the meantime will have PT/OT, PFS consult for safe discharge planning VSSantosh, I+O VSSantosh, I+O Laboratory Tests 10/21/20 05:15 Vital Signs Date Time Temp Pulse Resp B/P (MAP) Pulse Ox O2 Delivery O2 Flow Rate FiO2 10/21/20 08:31 72 137/73 10/21/20 07:18 98.2 22 96 Nasal Cannula 3.0 10/15/20 18:00 21 I&O- Last 24 Hours up to 6 AM 10/21/20 05:59 Intake Total 1078 ml Output Total 1652 ml Balance -574 ml RITCHIE LIN MD October 21, 2020 08:53
--- NOTE | 2020-10-21 11:50 | REP ---
INDICATION: ? bullus diseae, continued air leak COMPARISON: None TECHNIQUE: Axial noncontrast images from the thoracic inlet to the upper abdomen with coronal and sagittal reformations. This CT examination was performed using the following dose reduction techniques: Automated exposure control, adjustment of mA and/or kv according to the patient's size, and use of iterative reconstruction technique. FINDINGS: The left-sided chest tube is again identified extending along the lateral aspect of the chest wall. A miniscule residual left pneumothorax is appreciated which demonstrates very thin fibrotic extensions laterally to the ribcage and may represent stable chronic forming changes. Bilateral lung park demonstrate advanced COPD/emphysematous changes with scattered primarily basilar and left apical scarring. Tracheobronchial tree demonstrates mild generalized bronchiectasis. No acute focal consolidation. No effusion. Mediastinum demonstrates atherosclerotic changes to the thoracic aorta and coronary arteries without aortic aneurysm or cardiomegaly. No pericardial effusion. No obvious adenopathy. Surrounding musculoskeletal structures demonstrate age-related degenerative changes. IMPRESSION: 1. Miniscule residual left pneumothorax with fibrotic changes to the peripheral chest wall suggesting progressive chronic changes. 2. Stable advanced COPD/emphysematous changes with scattered scarring. 3. No new acute mediastinal or pleuroparenchymal process. <Electronically signed by Lam Sewell > 10/21/20 [id number]
[2020-10-21 12:57] VITALS: BP 148/74
[2020-10-21 16:00] VITALS: BP 135/70
[2020-10-21 20:00] VITALS: BP 107/68
[2020-10-22] VITALS (7 sets, daily range): BP systolic 113–143; BP diastolic 60–69
[2020-10-22] MEDS: SLF 3 ML SYR IV SCH ×3 (05:25→20:58)
[2020-10-22] MEDS: HEPARIN SOD (PORCINE) 5000UNITS/ML 1ML VIAL/SYRINGE SC SCH ×4 (05:25→21:00)
[2020-10-22 05:28] LABS: HEMATOCRIT 37.8 % (42.0-52.0); HEMOGLOBIN 12.5 g/dl (13.5-17.5); MEAN CORPUSCULAR HEMOGLOBIN 29.7 pg (27.0-33.0); MEAN CORPUSCULAR HGB CONC 33.1 g/dl (32.0-36.5); MEAN CORPUSCULAR VOLUME 89.8 fl (80.0-96.0); PLATELET COUNT, AUTOMATED 262 10^3/uL (150-450); RED BLOOD COUNT 4.21 10^6/uL (4.30-6.10); WHITE BLOOD COUNT 7.8 10^3/uL (4.0-10.0)
[2020-10-22 05:58] LABS: ALBUMIN 2.6 GM/DL (3.2-5.2); ALT/SGPT 22 U/L (12-78); BILIRUBIN,TOTAL 0.3 MG/DL (0.2-1.0); BLOOD UREA NITROGEN 17 MG/DL (7-18); CALCIUM LEVEL 8.1 MG/DL (8.8-10.2); CARBON DIOXIDE LEVEL 29 MEQ/L (21-32); CHLORIDE LEVEL 102 MEQ/L (98-107); CREATININE FOR GFR 0.61 MG/DL (0.70-1.30); GLOMERULAR FILTRATION RATE > 60.0 (>49); GLUCOSE, FASTING 83 MG/DL (70-100); POTASSIUM SERUM 3.6 MEQ/L (3.5-5.1); SODIUM LEVEL 138 MEQ/L (136-145); TOTAL PROTEIN 5.7 GM/DL (6.4-8.2)
[2020-10-22] MEDS: SYMBICORT 160/4.5MCG INHALER 6GM INH SCH ×2 (07:27→19:36)
[2020-10-22] MEDS: TIOTROPIUM INHALER/CAPSULE (SPIRIVA) INH SCH (07:27)
[2020-10-22] MEDS: IPRATROPIUM 0.5MG/ALBUTEROL 2.5MG INH SOL UD 3ML (DUONEB) NEB SCH ×4 (07:28→19:36)
--- NOTE | 2020-10-22 08:12 | REP ---
INDICATION: pneumothx COMPARISON: 10/21/2020 TECHNIQUE: PA and lateral. FINDINGS: Left chest tube in stable position. Small residual left apical pneumothorax again noted and unchanged. Diffuse COPD/emphysematous changes remains stable. No new acute process identified. Mediastinum and cardiac silhouette are stable/normal. Skeletal structures intact. IMPRESSION: Small residual left apical pneumothorax unchanged. No new acute process appreciated. <Electronically signed by Lam Sewell > 10/22/20 [id number]
[2020-10-22] MEDS: K-PHOS NEUTRAL 250MG TABLET (SOD.PHOSPHATE/POT.PHOSPHATE) PO SCH ×3 (08:31→20:58)
--- NOTE | 2020-10-22 08:35 | IPNPDOC ---
Text Note Date of Service The patient was seen on 10/22/20. NOTE Pulmonary Progress Note SUBJECTIVE: Patient was seen and examined this morning at bedside. He states he is feeling about the same. He denies shortness of breath at rest. He continues to have some shortness of breath when getting up and moving, the same as his typical baseline. He does not have any chest pain. OBJECTIVE: VITAL SIGNS: See below GENERAL: Alert, comfortable sitting up in a chair, in no acute distress HEENT: Normocephalic, atraumatic, sclera anicteric, moist mucous membranes NECK: Supple, trachea midline, no lymphadenopathy CARDIOVASCULAR: Regular rate and rhythm, normal S1 and S2. No murmurs, rubs, or gallops RESPIRATORY: Lung sounds distant, clear to auscultation bilaterally. Prolonged expiratory phase. No wheezing, rhonchi, or rales. ABDOMEN: Soft, nontender, nondistended, bowel sounds present, no masses or hepatosplenomegaly appreciated EXTREMITIES: No cyanosis or edema. Pulses 2+/4 in bilateral radial and dorsalis pedis arteries NEUROLOGIC: No focal deficits appreciated PSYCHIATRIC: Mood and affect appropriate LABORATORY DATA: See below IMAGING: - CT Chest 10/21/20, shows small left sided residual pneumothorax and chronic emphysematous changes bilaterally - CXR 10/22/20, appears stable from yesterday, chest tube remains in place. Radiologist comments on small residual left pneumothorax, unchanged, which is difficult for me to to appreciate. ASSESSMENT/PLAN: 1. Pneumothorax Discussed case yesterday with Dr. Ritter, who plans to see the patient today. CT chest was obtained and shows the residual, small, left sided pneumothorax which is described by the radiologists on chest XR films. The chest tube was set to water seal yesterday and per nursing the patient has had no air leak overnight. We have clamped the tube this morning and will repeat the chest XR in two hours. As the patient has not had an air leak, we are hopeful that no pleurodesis will be needed. 2. End stage COPD/emphysema Currently on 3L NC. Continue on inhaled therapy. 3. Hypertension Blood pressures have been better controlled. Continue on amlodipine 10 mg daily. 4. Protein calorie malnutrition Continue with regular diet and ensure supplementation. DISPOSITION: Patient encouraged to continue working with physical therapy, as his goal is to return home on discharge. He continues to appear deconditioned and may have difficulty caring for himself at home. I, Yulisa Torres, agree with the progress note as outlined above after I completed an independent history and physical. Patient is being closely managed by pulmonary team due to his tenuous respiratory status , awaiting resolution of pneumothorax. Consideration of talc pleurodesis however patient is very frail. VS,Fishbone, I+O VS, Fishbone, I+O Laboratory Tests 10/22/20 04:45 Vital Signs Date Time Temp Pulse Resp B/P (MAP) Pulse Ox O2 Delivery O2 Flow Rate FiO2 10/22/20 04:00 96.8 60 18 113/60 (77) 98 Nasal Cannula 3.0 l I&O- Last 24 Hours up to 6 AM 10/22/20 06:00 Intake Total 480 ml Output Total 1278 ml Balance -798 ml GERTRUDE AGARWAL D.O. Oct 22, 2020 08:35 YULISA TORRESCMaryCMaile Oct 23, 2020 11:02
--- NOTE | 2020-10-22 09:21 | IPN ---
PROGRESS NOTE DATE: 10/21/20 SUBJECTIVE: The patient is seen and examined this morning at bedside. He is feeling about the same. He denies any shortness of breath at rest. He states he continues to have some shortness of breath when trying to get up and move, but reports this is his baseline from home. He did eat about 3/4 of his breakfast this morning. He denies any chest pain. He reports his cough has improved since yesterday and denies any production or hemoptysis. Chest tube is in place and at negative 20 cm of suction with no air leak. OBJECTIVE: VITAL SIGNS: Temperature 98.2 temporal, heart rate 72, respiratory rate 22, blood pressure 137/73, oxygen saturation 96% on three liters via nasal cannula. GENERAL: The patient appears thin, awake, alert, sitting up in a chair. HEENT: Normocephalic, atraumatic. Sclerae anicteric and clear. Moist mucous membranes. NECK: Supple, no tracheal deviation or lymphadenopathy. CARDIAC: Regular rate and rhythm, normal S1 and S2. No murmur, rub or gallop. PULMONARY: Lung sounds are decreased bilaterally with prolonged expiratory phase. No wheezing, rhonchi or rales appreciated. CHEST: Chest tube is in place in the left lateral position. ABDOMEN: Soft, nondistended, nontender, no hepatosplenomegaly appreciated. No masses or hernias. EXTREMITIES: No cyanosis or edema. Pulses 2+ in the dorsalis pedis and radial arteries. NEUROLOGIC: No focal deficits appreciated. PSYCHIATRIC: Normal mood and affect. LABORATORY DATA: White blood cell count 6.8, hemoglobin 12.5, hematocrit 37.7, platelet count 249. Sodium 137, potassium 3.4, chloride 101, carbon dioxide 31, BUN 16, creatinine 0.65, glucose 78, calcium 8.0, albumin 2.6. IMAGING: Chest x-ray appears unchanged with chest tube in place in the left side. There are chronic COPD changes. Radiological report continues to report a small left apical pneumothorax, unchanged. ASSESSMENT AND PLAN: 70-year-old male who presented to the hospital in acute respiratory distress, found to have a left-sided pneumothorax, now with chest tube in place and small residual pneumothorax. 1. Pneumothorax. Chest x-ray continues to report by radiologist small, persistent apical pneumothorax. We will continue him on suction negative 20 cm today. The case discussed with Dr. Ritter, who will see the patient. If not improved, we will consider options for pleurodesis. 2. End-stage emphysema with severe deconditioning. The patient continues on inhaled therapy with Spiriva and Symbicort. He also has p.r.n. DuoNebs. 3. Hypertension. Amlodipine dose increased to 10 mg yesterday. His blood pressure appears better controlled today. We will continue on 10 mg dosing. 4. DVT prophylaxis. Heparin subcu 5000 units q.8 hours. 5. Protein calorie malnutrition. Regular diet with protein supplementation at each meal with Ensure. 6. Disposition. The patient is very deconditioned and we will continue to work with physical therapy. I, Ronn Torres, agree with the history and physical exam after conducting my own independent history and physical. Awaiting resolution of pneumothorax. MTDD
--- NOTE | 2020-10-22 09:51 | CR ---
CONSULTATION DATE: 10/21/2020 CHIEF COMPLAINT: The patient is seen at the request of Dr. Torres after I placed a chest tube in an emergent situation about a week ago. HISTORY OF PRESENT ILLNESS: The patient is a 70-year-old white male who I have seen before in 2019 for a left sided pneumothorax. He presented on 10/15 in extremis with a small but physiologically significant pneumothorax. Dr. Boateng of the [facility] called me to emergently place a chest tube which was placed in the posterior lateral position of the left chest as it looked as if his lung at the apex was adherent to the chest wall. At the time, I indicated to the Medical Service that I was acting as a retail service technician and once he was off positive pressure ventilation that I should be called to remove the tube. However, in the last few days, while the patient has been off positive pressure ventilation, his chest tube has continued to leak when taken off suction with recurrence of a small pneumothorax, albeit at the apex rather than at the inferior hemothorax. I am therefore formally consulted to manage the air leak in the chest tube. As noted, he is a 70-year-old white male who on history taking just now remembers becoming suddenly short of breath prior to being brought to the hospital on 10/15 by ambulance. He denies remembering any chest pain. He was just very short of breath. He denies coughing prior to his event and denies fever, chills or sweats. He states that when he started to become very short of breath he became very hot. There has been no dysphagia and over the past year he has not lost any weight. When taking the history from him, he does not speak in quite full sentences and has to take a breath every five or six words. He is a lot better than he was when he came in on 10/15. In addition to his acute shortness of breath, he has been short of breath constantly at home for the past few years. He gets short of breath just walking around his house. He denies orthopnea or paroxysmal nocturnal dyspnea, however. PAST MEDICAL HISTORY: 1. Chronic back pain. 2. History of alcohol abuse in the remote past, now quit. 3. COPD with emphysema, GOLD Stage IV. 4. Prior history of pneumonia in 2013. 5. Prior history of tobacco abuse, quit after his pneumonia in 2013. 6. History of stable pulmonary nodules. PAST SURGICAL HISTORY: 1. Left inguinal hernia. 2. Bilateral cataract extractions and implantations. HOME MEDICATIONS: 1. Albuterol two puffs q.i.d. p.r.n. shortness of breath. 2. Amlodipine 5 mg q. day. 3. Symbicort two puffs b.i.d. 4. Gabapentin 400 mg t.i.d. 5. Incruse Ellipta 63.5 mg one puff q. day. TRAVEL HISTORY: He was in the . He was in [employer] after doing basic training in [place], [place]. He has traveled to [place]. No travel to the [facility]. ALLERGIES: None. HABITS: Smoked 1 to 1 1/2 packs of [place] per day, quit in 2013. He has been smoking since his teenage years. He used to imbibe beer and maintains that he quit 20 years ago. He denies illicit drugs. 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 There was no known asbestos exposure. FAMILY HISTORY: Father with heart disease, notably no family history of lung disease or lung cancer. EXPOSURES: He had dogs at home but they are now out of the house. No cats or birds. REVIEW OF SYSTEMS: Constitutional: See HPI. In 2019 he lost 20 pounds of weight over a period of six months but has now stabilized. His weight in 2019 was 46 kg and today it is 47.5 kg. Eyes without diplopia, without amaurosis fugax, without prior jaundice. Had cataracts done. Nose without epistaxis. Mouth: Wears dentures. Pulmonary: See HPI. Cardiac: Denies intermittent claudication or chest pain. Denies prior myocardial infarction, orthopnea, or paroxysmal nocturnal dyspnea. GI: Without nausea, vomiting, diarrhea, constipation, melena, hematochezia or abdominal pain. : Without history of renal stones, without dysuria or hematuria. Endocrine: Without diabetes, without thyroid disease. Psychiatric: Without pathological anxiety, depression or psychosis. Neurologic: Without paresthesias, paralysis, or prior seizures. PHYSICAL EXAMINATION: GENERAL: Cachectic white male, unable to complete full sentences but quite cooperative and good spirits. VITAL SIGNS: Temperature is 98.2 with a heart rate of 72 and a sinus rhythm. Respiratory rate is 22 with use of cervical accessory muscles with a blood pressure of 137/73, pulse oximetry of 96% on 3 liters nasal cannula. HEENT: Head is normocephalic. Eyes: Pupils equal and reactive to light. Extraocular muscles intact. Sclera nonicteric. Nose without deformity. Mouth shows the mucous membranes to be pink and moist. Lips and commissures are without lesions and no thrush. He has dentures, uppers and lowers in place. NECK: Supple. There is no jugular venous distention. No subcutaneous emphysema. Trachea is midline. There are no carotid bruits. He has 2 plus carotid upstrokes. There is no lymphadenopathy or thyromegaly. LUNGS: Hyperresonant percussion notes on both sides. Breath sounds are diminished on both sides but equally. I hear some faint expiratory wheezes particularly at the end of expiration. CARDIAC: Without murmurs, clicks, gallops or rubs although his heart sounds are quite faint. I cannot feel his PMI. S1 and S2 are normal. ABDOMEN: Soft, nontender. Bowel sounds are positive. There is no hepatomegaly. No CVA tenderness. EXTREMITIES: No pretibial edema. No calf tenderness. No differential swelling of the upper extremities. His dorsalis pedis pulses are strong, I can feel them through his socks. SKIN: Warm, dry and well perfused without cyanosis or mottling including nailbeds and knees. NEUROLOGIC: Cranial nerves II through XII intact. No gross motor deficit. Gait is not tested. PSYCHIATRIC: He is awake, alert and oriented x3 with appropriate mood and affect, and conversational. LABORATORY DATA: His white count today is 6.8 with a hemoglobin of 12.5 and 37.5 respectively with a platelet count of 249,000. White count has come down from an admission white count of 23,000 which is probably secondary to demargination and stress. His electrolytes shows a sodium of 137, a potassium of 3.4. BUN and creatinine are 16 and 0.65 with a glucose of 78 and a calcium of 8.0. Albumin is 2.6. AST and ALT are normal. His last blood gas on 10/16/20 showed a pH of 7.38, pCO2 of 42, and a pO2 of 85 with a base excess of -0.5. When he was admitted his pH was 7.093 with a pCO2 of 105. That has all since resolved with the chest tube. He is not on any antibiotics. As far as I can tell he has not been placed on antibiotics on this admission. Review of his chest x-rays today shows a very small pneumothorax apically. This is unchanged from his x-ray of 10/19. It was reported that he developed the pneumothorax when the chest tube was off suction, but the chest tube was on suction for his chest x-ray today and he still has that same small superior lateral apical pneumothorax. I did obtain a CT scan on him today. He has apical emphysematous changes particularly notable on the left with what looks to be some scarring. He has diffuse emphysematous changes throughout which are quite extensive and severe. I do not see any infiltrates per se. There is some atelectatic changes in the right upper lobe but there is nothing on the left side. The small bullae can be easily discerned on the coronal view and the sagittal view. He does have quite a barrel chest consistent with his emphysema. Chest tube looked to be in good place. I do not see any lymphadenopathy paratracheally or in the hilum. I cannot ascertain his adrenals. There are no liver lesions. IMPRESSION: 1. Recurrent spontaneous pneumothorax on the left. 2. Tension pneumothorax resolved with chest tube on 10/15. 3. Respiratory failure, resolved with chest tube and temporary noninvasive positive pressure ventilation. 4. Severe emphysematous disease on both sides, left greater than right. 5. 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 6. GOLD IV COPD. 7. Chronic back pain. 8. Alveolar pleural fistula. PLAN/DISCUSSION: This morning upon seeing him, I took him off suction and re-equilibrated the level of the water seal. Upon forceful coughing, I did not detect see an air leak. I am therefore going to keep him off suction. His pneumothorax is the same now as it was when the chest tube was off suction. It is exceedingly small. I would be quite reticent to take him to the operating room for a talc pleurodesis and wedge resection as he has very severe emphysematous disease. I do not even know whether he would tolerate one lung anesthesia. The last time I treated him in 2018 I ended up doing a blood patch for a continued air leak. The problem really comes down to a consideration of risks and benefits as he was in extremis with this relatively small pneumothorax on 10/15 with severe hypercarbia versus taking him to the Operating Room and exposing him to the risks of surgery including one lung anesthesia and a prolonged air leak even from the staple lines. Furthermore, one lung anesthesia would entail higher pressures to the left side for gas exchange and may create a pneumothorax on the right side when the left side is deflated. All in all, we are between a rock and a hard place with Mr. Singh. I am hoping that the air leak will stop and the small residual pneumothorax that he has superiorly and laterally will not physiologically affect him.
--- NOTE | 2020-10-22 10:44 | REP ---
INDICATION: chest tube clamped COMPARISON: 10/22/2020 at 7:30 a.m. TECHNIQUE: PA and lateral. FINDINGS: Left chest tube in stable position. Previously noted left apical pneumothorax is near completely resolved. No new acute process appreciated. IMPRESSION: Near complete resolution to the known left apical pneumothorax. No new acute process identified. <Electronically signed by Lam Sewell > 10/22/20 1041
--- NOTE | 2020-10-22 12:08 | IPNPDOC ---
Date Seen The patient was seen on 10/22/20. Progress Note Subjective: Chest tube clamped today per pulmonary, repeat imaging done and showing improvement. PT/OT ordered. Denies incr SOB, chest pain, n/v/d. Objective: General: Thin, cachectic Head: bitemporal wasting, NCAT EENT: anicteric, no injection, nasal canula in place, MMM Pulm: Diminished sounds b/l, prolonged expiratory phase, barrel chest . No crackles, no wheezing, is winded with speaking a few words and that is his recent baseline. Left side chest tube in place Cardiac: RRR, no m/r/g Abd: scaphoid, soft, normoactive, NTND Ext: no LE edema, WWP Psych: AOx3 Labs: Please see below IMAGING: CXR 10/22/20: Near complete resolution to the known left apical pneumothorax. No new acute p rocess identified. Assessment: 65-year-old M with advanced obstructive airway disease (Gold classification #4) with predominant emphysema, chronic hypoxemic respiratory failure on home 3L NC, with high degree of debility at baseline with activity limited by exertional dyspnea with poor pulmonary reserve, who presented to the ED in respiratory distress and was found to be acute hypoxic hypercarbic respiratory failure with a small left pneumothorax. PLAN: Hypercarbic hypoxemic respiratory failure likely multifactorial 2/2 to End Stage COPD with emphysema, small left pneumothorax. -Hypercarbia resolved s/p BiPAP -Hypoxemia improved back to baseline, on 3L: however, still profoundly SOB with activity -continue symbicort, spiriva and QID albuterol nebs End stage COPD with emphysema: -treatment as noted above with symbicort, spiriva, PRN albuterol nebs and supplemental O2 -declined hospice at this time. Both Dr. Torres and Dr. Sherman, prior hospitalist, discussed this option with him and he declined. -Pulmonary following Small left pneumothorax -Improved on imaging above -Chest tube clamped today, likely repeat imaging again in 24 hours -Chest tube by Dr. Ritter, being managed by pulmonology (Dr. Torres) HTN: -Continue amlodipine 10mg daily DVT ppx -Heparin TID SC DISPOSITION: PCU, PT/OT, PFS for safe discharge planning VS, I&O, 24H, Fishbone Vital Signs/I&O Vital Signs Date Time Temp Pulse Resp B/P (MAP) Pulse Ox O2 Delivery O2 Flow Rate FiO2 10/22/20 08:31 71 123/61 10/22/20 08:00 98.0 18 98 High Flow Cannula 3.0 I&O- Last 24 Hours up to 6 AM 10/22/20 06:00 Intake Total 480 ml Output Total 1278 ml Balance -798 ml Laboratory Data 24H LABS Laboratory Tests 2 10/22/20 04:45: Nucleated Red Blood Cells % (auto) 0.0, Anion Gap 7L, Glomerular Filtration Rate > 60.0, Calcium Level 8.1L, Magnesium Level 2.0, Total Bilirubin 0.3, Aspartate Amino Transf (AST/SGOT) 18, Alanine Aminotransferase (ALT/SGPT) 22, Alkaline Phosphatase 113, Total Protein 5.7L, Albumin 2.6L, Albumin/Globulin Ratio 0.8 CBC/BMP Laboratory Tests 10/22/20 04:45 Microbiology Microbiology 10/15/20 Blood Culture - Final, Complete NO GROWTH AFTER 5 DAYS 10/15/20 Blood Culture - Final, Complete NO GROWTH AFTER 5 DAYS Samia Lacey MD Oct 22, 2020 12:08
[2020-10-22] MEDS: ACETAMINOPHEN TAB 650MG DOSE (2X325MG) PO PRN (13:31)
[2020-10-23] VITALS: BP 117/59
[2020-10-23 04:00] VITALS: BP 136/84
[2020-10-23 04:42] LABS: HEMATOCRIT 38.9 % (42.0-52.0); HEMOGLOBIN 13.1 g/dl (13.5-17.5); MEAN CORPUSCULAR HEMOGLOBIN 30.3 pg (27.0-33.0); MEAN CORPUSCULAR HGB CONC 33.7 g/dl (32.0-36.5); PLATELET COUNT, AUTOMATED 298 10^3/uL (150-450); RED BLOOD COUNT 4.32 10^6/uL (4.30-6.10); WHITE BLOOD COUNT 8.8 10^3/uL (4.0-10.0)
[2020-10-23 05:08] LABS: ALT/SGPT 28 U/L (12-78); BILIRUBIN,TOTAL 0.4 MG/DL (0.2-1.0); BLOOD UREA NITROGEN 16 MG/DL (7-18); CALCIUM LEVEL 9.1 MG/DL (8.8-10.2); CARBON DIOXIDE LEVEL 38 MEQ/L (21-32); CHLORIDE LEVEL 99 MEQ/L (98-107); CREATININE FOR GFR 0.62 MG/DL (0.70-1.30); GLOMERULAR FILTRATION RATE > 60.0 (>49); GLUCOSE, FASTING 85 MG/DL (70-100); POTASSIUM SERUM 3.9 MEQ/L (3.5-5.1); SODIUM LEVEL 138 MEQ/L (136-145); TOTAL PROTEIN 5.6 GM/DL (6.4-8.2)
[2020-10-23] MEDS: SLF 3 ML SYR IV SCH ×3 (05:48→21:49)
[2020-10-23] MEDS: HEPARIN SOD (PORCINE) 5000UNITS/ML 1ML VIAL/SYRINGE SC SCH ×3 (05:48→21:49)
[2020-10-23] MEDS: SYMBICORT 160/4.5MCG INHALER 6GM INH SCH ×2 (07:25→19:44)
[2020-10-23] MEDS: IPRATROPIUM 0.5MG/ALBUTEROL 2.5MG INH SOL UD 3ML (DUONEB) NEB SCH ×4 (07:26→19:44)
[2020-10-23] MEDS: TIOTROPIUM INHALER/CAPSULE (SPIRIVA) INH SCH (07:26)
[2020-10-23 07:31] VITALS: BP 151/73
--- NOTE | 2020-10-23 08:14 | REP ---
INDICATION: pneumothx COMPARISON: 10/22/2020 TECHNIQUE: PA and lateral. FINDINGS: Left-sided chest tube again noted in stable position and the left apical pneumothorax is essentially resolved. The lung park demonstrate stable chronic COPD/emphysematous changes. No new acute process appreciated. Mediastinum and cardiac silhouette are stable and within normal limits. Skeletal structures are intact. IMPRESSION: 1. Left chest tube in stable position. Left pneumothorax essentially resolved. 2. Stable diffuse chronic changes. <Electronically signed by Lam Sewell > 10/23/20 0846
[2020-10-23] MEDS: K-PHOS NEUTRAL 250MG TABLET (SOD.PHOSPHATE/POT.PHOSPHATE) PO SCH ×3 (08:22→20:13)
[2020-10-23] MEDS: ACETAMINOPHEN TAB 650MG DOSE (2X325MG) PO PRN (09:29)
--- NOTE | 2020-10-23 09:49 | IPNPDOC ---
Text Note Date of Service The patient was seen on 10/23/20. NOTE Pulmonary Progress Note SUBJECTIVE: Patient was seen and examined this morning at bedside. He is initially seen prior to chest tube removal. He states he is feeling about the same as yesterday. He denies chest pain. No shortness of breath at rest, but he does fee l short of breath when he gets up and moves around. Patient is seen again after removal of chest tube by Dr. Ritter. He is sitting up eating breakfast. He states he feels much better not having the tube tugging at his side anymore. OBJECTIVE: VITAL SIGNS: See below GENERAL: Alert, comfortable sitting up in a chair, in no acute distress HEENT: Normocephalic, atraumatic, sclera anicteric, moist mucous membranes NECK: Supple, trachea midline, no lymphadenopathy CARDIOVASCULAR: Regular rate and rhythm, normal S1 and S2. No murmurs, rubs, or gallops RESPIRATORY: Lung sounds distant, clear to auscultation bilaterally. Prolonged expiratory phase. No wheezing, rhonchi, or rales. ABDOMEN: Soft, nontender, nondistended, bowel sounds present, no masses or hepatosplenomegaly appreciated EXTREMITIES: No cyanosis or edema. Pulses 2+/4 in bilateral radial and dorsalis pedis arteries NEUROLOGIC: No focal deficits appreciated PSYCHIATRIC: Mood and affect appropriate LABORATORY DATA: See below IMAGING: - CXR 10/23/20, shows chest tube in place in the left lateral chest, resolution of the small left pneumothorax noted by radiologist. ASSESSMENT/PLAN: 1. Pneumothorax The chest tube was clamped overnight with no air leak. Dr. Ritter removed the chest tube this morning. We will repeat a chest XR tomorrow morning to confirm the pneumothorax does not recur. Currently the patient's shortness of breath is at his baseline. 2. End stage COPD/emphysema Currently on 3L NC. Continue on inhaled therapy. 3. Hypertension Continue on amlodipine 10 mg daily. 4. Protein calorie malnutrition Continue with regular diet and ensure supplementation. DISPOSITION: Patient encouraged to continue working with physical therapy, as his goal is to return home on discharge. He continues to appear deconditioned and may have difficulty caring for himself at home. Hospitalist to discuss with PFS regarding possible need for placement. IRonn, agree with the history and physical exam as outlined above. Mr. Singh is very frail with severe end stage lung disease. Trial of removal of chest tube today and home tomorrow if cleared from a social standpoint as long as he does not decompensate. VS,Santosh, I+O VS, Santosh, I+O Laboratory Tests 10/23/20 04:18 Vital Signs Date Time Temp Pulse Resp B/P (MAP) Pulse Ox O2 Delivery O2 Flow Rate FiO2 10/23/20 08:22 69 151/73 10/23/20 07:31 97.5 22 96 Nasal Cannula 3.0 I&O- Last 24 Hours up to 6 AM 10/23/20 06:00 Intake Total 1050 ml Output Total 1400 ml Balance -350 ml GERTRUDE AGARWAL D.O. Oct 23, 2020 09:49 RONN CHRISTENSEN Oct 23, 2020 11:15
[2020-10-23 12:00] VITALS: BP 124/70
--- NOTE | 2020-10-23 13:55 | IPNPDOC ---
Date Seen The patient was seen on 10/23/20. Progress Note Subjective: Chest tube removed today. OT cleared for home, follow up PT recommendations. Discussed plan with Dr. Torres and PFS for discharge. Patient, although SOB with activity, states this is how he is at baseline Confirmed with his mother, whom he lives with. Objective: PHYSICAL EXAM: General: Thin, cachectic, NAD resting in bedside chair, SOB with conversation Head: bitemporal wasting, NCAT EENT: anicteric, no injection, nasal canula in place, MMM Pulm: Diminished sounds b/l, prolonged expiratory phase, barrel chest . No crackles, no wheezing, is winded with speaking a few words and that is his recent baseline. Left side chest tube taken out, bandages in place Cardiac: RRR, no m/r/g Abd: scaphoid, soft, normoactive, NTND Ext: no LE edema, WWP Psych: AOx3 Labs: Please see below IMAGING: CXR 10/23/20: 1. Left chest tube in stable position. Left pneumothorax essentially resolved. 2. Stable diffuse chronic changes. CXR 10/22/20: Near complete resolution to the known left apical pneumothorax. No new acute process identified. Assessment: 65-year-old M with advanced obstructive airway disease (Gold classification #4) with predominant emphysema, chronic hypoxemic respiratory failure on home 3L NC, with high degree of debility at baseline with activity limited by exertional dyspnea with poor pulmonary reserve, who presented to the ED in respiratory distress and was found to be acute hypoxic hypercarbic respiratory failure with a small left pneumothorax. PLAN: Hypercarbic hypoxemic respiratory failure likely multifactorial 2/2 to End Stage COPD with emphysema, small left pneumothorax (resolve) -Hypoxemia at baseline, on 3L: however, still is SOB with activity but this is also baseline -C/w symbicort, spiriva and QID albuterol nebs End stage COPD/emphysema -Treatment as noted above with symbicort, spiriva, PRN albuterol nebs and supplemental O2 -Declined hospice at this time. Both Dr. Torres and Dr. Sherman, prior hospitalist, discussed this option with him. -Cleared OT and did well with PT this afternoon. Will need o/p PT, HH referral prior to discharge -Pulmonary following and to continue as o/p Small left pneumothorax- resolved -Chest tube clamped 10/22/20 without air leak and improved imaging today, chest tube taken out today on 10/23/20 -F/u repeat imaging on 10/24/20 to ensure remains improved -Chest tube was being managed by Dr. Ritter, pulmonology (Dr. Torres) also following Protein calorie malnutrition likely 06/25 to End stage COPD/emphysema -c/w regular diet and ensure supplementation. HTN: -Continue amlodipine 10mg daily DVT ppx -Heparin TID SC DISPOSITION: PT/OT, PFS for safe discharge planning to home likely 10/24/20 if pulmonary issues remain stable over next 24 hours. VS, I&O, 24H, Fishbone Vital Signs/I&O Vital Signs Date Time Temp Pulse Resp B/P (MAP) Pulse Ox O2 Delivery O2 Flow Rate FiO2 10/23/20 12:00 3.0 10/23/20 12:00 97.1 75 22 124/70 (88) 94 Nasal Cannula I&O- Last 24 Hours up to 6 AM 10/23/20 06:00 Intake Total 1050 ml Output Total 1400 ml Balance -350 ml Laboratory Data 24H LABS Laboratory Tests 2 10/23/20 04:18: Nucleated Red Blood Cells % (auto) 0.0, Anion Gap 1L, Glomerular Filtration Rate > 60.0, Calcium Level 9.1, Magnesium Level 2.0, Total Bilirubin 0.4, Aspartate Amino Transf (AST/SGOT) 19, Alanine Aminotransferase (ALT/SGPT) 28, Alkaline Phosphatase 122H, Total Protein 5.6L, Albumin 3.0L, Albumin/Globulin Ratio 1.2 CBC/BMP Laboratory Tests 10/23/20 04:18 Microbiology Microbiology 10/15/20 Blood Culture - Final, Complete NO GROWTH AFTER 5 DAYS 10/15/20 Blood Culture - Final, Complete NO GROWTH AFTER 5 DAYS Samia Lacey MD Oct 23, 2020 13:55
[2020-10-23 15:29] VITALS: BP 131/68
--- NOTE | 2020-10-23 16:44 | IPN ---
PROGRESS NOTE DATE: 10/22/2020 SUBJECTIVE: Mr. Singh has had an uneventful night. He is sitting up comfortably and while he is short of breath, he is back to his baseline. His chest tube has now been off suction for 24 hours and chest x-ray shows no change. OBJECTIVE: His vital signs show a T-max of 98.0 with a heart rate that ranges between 60-84 in a sinus rhythm, respiratory rate a constant 18 without the use of accessory muscles. He is 95-99% saturated on 3 liters nasal cannula. His blood pressure is ranging between 143/68 to 113/60. His intake and output the past 24 hours has been recorded as 840 in and 628 out for a negativity of 788 mL. He has put out 3 mL from the chest tube and there is no air leak with forceful coughing. Weight today is 47.5 kg which is identical to that yesterday. On physical examination his lungs show equal breath sounds on either side with a hyperresonant percussion on either side. I hear some faint expiratory wheezing at the end of expiration on either side. Cardiac exam is without murmurs, clicks, gallops, or rubs. I cannot feel his PMI. S1, S2 are normal. Heart sounds are quite distant most likely secondary to his decreased AP diameter chest. Abdomen is soft, nontender. Bowel sounds are positive. There is no hepatomegaly. No CVA tenderness. Extremities show no pretibial edema, no calf tenderness, no differential swelling of the upper extremities. Skin is warm and dry and perfused without cyanosis or mottling including that of nailbeds and knees. Neck is supple. There is no jugular venous distention, no subcutaneous emphysema. Trachea is midline. Mouth shows the mucous membranes to be pink and moist. Lips and gums show no lesions, no thrush. Neuro shows II-XII intact with normal gross motor, gross sensation intact. Gait is not tested. Psychiatric shows him to be awake and alert and oriented times three with appropriate mood and affect and conversational. His white count today is 7.8 with a hemoglobin and hematocrit of 12.5 and 37.8, unchanged from yesterday with a platelet count of 262 and stable. Chemistries today show normal electrolytes with a total CO2 that is normal, last at 29. BUN and creatinine are 17 and 0.61 with a glucose of 83 and a calcium of 8.1. Corresponding albumin is 2.6. Magnesium is 2.0. Chest x-ray today shows a very slight separation of the lung from the chest wall, superiorly and laterally. If I was not actually looking for it, I would not have seen it. He has no infiltrates. Costophrenic angles are sharp. He of course has an increased lateral and AP diameter. Chest tube is in good place. There is no subcutaneous emphysema. I see no pleural effusion although there may be some post compressive atelectasis in the posterior costophrenic angle. ASSESSMENT: 1. Recurrent spontaneous pneumothorax on the left. 2. Tension pneumothorax resolved with chest tube 10/15. 3. Respiratory failure, resolved with chest tube and temporary noninvasive positive pressure ventilation. 4. Severe emphysematous disease, both sides, left greater than right. 5. 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 6. Chronic obstructive pulmonary disease, GOLD IV. 7. Chronic back pain. 8. Alveolar pleural fistula hopefully now resolved. PLAN DISCUSSION: While I usually do not clamp chest tubes because of his precarious status, I will clamp the chest tube for 24 hours to make sure that he indeed does not have a leak and his lung is going to stay at the chest wall. As I noted yesterday in my consultation we are between a rock and a hard place in regards to his treatment. This may very well recur again. However, he is a very poor operative candidate for talc pleurodesis and wedge resection of the bullae in the left upper apex. I have grave doubts that he would even tolerate one lung anesthesia in order to approach this thorascopically. I think the lesser of two risks is removing the chest tube and hoping this does not happen again.
[2020-10-23 20:00] VITALS: BP 124/61
[2020-10-24] VITALS: BP 118/68
[2020-10-24 04:00] VITALS: BP 118/59
[2020-10-24 04:41] LABS: HEMATOCRIT 39.3 % (42.0-52.0); HEMOGLOBIN 12.8 g/dl (13.5-17.5); MEAN CORPUSCULAR HEMOGLOBIN 29.2 pg (27.0-33.0); MEAN CORPUSCULAR HGB CONC 32.6 g/dl (32.0-36.5); MEAN CORPUSCULAR VOLUME 89.7 fl (80.0-96.0); PLATELET COUNT, AUTOMATED 303 10^3/uL (150-450); RED BLOOD COUNT 4.38 10^6/uL (4.30-6.10); WHITE BLOOD COUNT 9.4 10^3/uL (4.0-10.0)
[2020-10-24 05:14] LABS: ALBUMIN 2.9 GM/DL (3.2-5.2); ALT/SGPT 31 U/L (12-78); BILIRUBIN,TOTAL 0.3 MG/DL (0.2-1.0); BLOOD UREA NITROGEN 15 MG/DL (7-18); CALCIUM LEVEL 8.7 MG/DL (8.8-10.2); CARBON DIOXIDE LEVEL 34 MEQ/L (21-32); CHLORIDE LEVEL 101 MEQ/L (98-107); CREATININE FOR GFR 0.65 MG/DL (0.70-1.30); GLOMERULAR FILTRATION RATE > 60.0 (>49); GLUCOSE, FASTING 85 MG/DL (70-100); MAGNESIUM LEVEL 2.2 MG/DL (1.8-2.4); SODIUM LEVEL 139 MEQ/L (136-145); TOTAL PROTEIN 5.9 GM/DL (6.4-8.2)
[2020-10-24] MEDS: SLF 3 ML SYR IV SCH (05:47)
[2020-10-24] MEDS: HEPARIN SOD (PORCINE) 5000UNITS/ML 1ML VIAL/SYRINGE SC SCH (05:47)
[2020-10-24 07:25] VITALS: BP 122/58
[2020-10-24] MEDS ORDERED: PHOS1TAB3 PO (07:39)
[2020-10-24] MEDS ORDERED: AMLO1TAB25 PO (07:39)
[2020-10-24] MEDS ORDERED: ACET1TAB55 PO (07:39)
[2020-10-24] MEDS ORDERED: TIOT18INH INH (07:39)
[2020-10-24] MEDS: TIOTROPIUM INHALER/CAPSULE (SPIRIVA) INH SCH (07:53)
[2020-10-24] MEDS: SYMBICORT 160/4.5MCG INHALER 6GM INH SCH (07:54)
[2020-10-24] MEDS: IPRATROPIUM 0.5MG/ALBUTEROL 2.5MG INH SOL UD 3ML (DUONEB) NEB SCH ×2 (07:54→10:59)
--- NOTE | 2020-10-24 08:06 | REP ---
INDICATION: pneumothx COMPARISON: 10/23/2020 TECHNIQUE: PA and lateral. FINDINGS: Left-sided chest tube has been removed and no obvious residual pneumothorax is identified. Chronic COPD/emphysematous changes and scattered scarring again noted. No acute consolidation, effusion, or pneumothorax. Mediastinum and cardiac silhouette are within normal limits and stable. Skeletal structures are intact. IMPRESSION: Chronic COPD/emphysematous changes. Previous left pneumothorax resolved. <Electronically signed by Lam Sewell > 10/24/20 0802
--- NOTE | 2020-10-24 08:31 | IPNPDOC ---
Text Note Date of Service The patient was seen on 10/24/20. NOTE Pulmonary Progress Note SUBJECTIVE: Patient was seen and examined this morning at bedside. He states he continues to feel the same. He has some shortness of breath when up moving around. He feels he has made some progress with physical therapy in regards to his mobility. He is grateful that the chest tube is removed. No chest pain or cough. OBJECTIVE: VITAL SIGNS: See below GENERAL: Alert, comfortable sitting up in a chair, in no acute distress HEENT: Normocephalic, atraumatic, sclera anicteric, moist mucous membranes NECK: Supple, trachea midline, no lymphadenopathy CARDIOVASCULAR: Regular rate and rhythm, normal S1 and S2. No murmurs, rubs, or gallops RESPIRATORY: Lung sounds distant, clear to auscultation bilaterally. Prolonged expiratory phase. No wheezing, rhonchi, or rales. ABDOMEN: Soft, nontender, nondistended, bowel sounds present, no masses or hepatosplenomegaly appreciated EXTREMITIES: No cyanosis or edema. Pulses 2+/4 in bilateral radial and dorsalis pedis arteries NEUROLOGIC: No focal deficits appreciated PSYCHIATRIC: Mood and affect appropriate LABORATORY DATA: See below IMAGING: - CXR 10/24/20, shows no recurrence of pneumothorax. stable chronic changes including hyperinflation and flat diaphragms. ASSESSMENT/PLAN: 1. Pneumothorax Patient is now status post chest tube without recurrence of his pneumothorax. He continues to be at high risk of developing secondary spontaneous pneumothorax due to underlying emphysematous changes in the lungs. He can follow up outpatient with pulmonology in 3-4 weeks. 2. End stage COPD/emphysema Currently on 3L NC. Continue on inhaled therapy. 3. Hypertension Continue on amlodipine 10 mg daily. 4. Protein calorie malnutrition Continue with regular diet and ensure supplement. After discharge, patient should follow up outpatient with Pulmonology in 3-4 weeks. VS,Fishbone, I+O VS, Fishbone, I+O Laboratory Tests 10/24/20 04:25 Vital Signs Date Time Temp Pulse Resp B/P (MAP) Pulse Ox O2 Delivery O2 Flow Rate FiO2 10/24/20 07:25 97.1 63 18 122/58 (79) 92 Nasal Cannula 3.0 I&O- Last 24 Hours up to 6 AM 10/24/20 06:00 Intake Total 600 ml Output Total 1375 ml Balance -775 ml Attending Note Attending Note I, Ronn Torres, agree with the assessment and plan as outlined above after my personal history and physical. The patient remains frail, end-stage disease, with high risk of re-admission and reoccurrence. GERTRUDE AGARWAL D.O. Oct 24, 2020 08:31 RONN TORRES Oct 24, 2020 09:04
[2020-10-24 08:52] VITALS: BP 122/58
[2020-10-24] MEDS: K-PHOS NEUTRAL 250MG TABLET (SOD.PHOSPHATE/POT.PHOSPHATE) PO SCH (08:52)
[2020-10-24 12:00] VITALS: BP 129/68
--- NOTE | 2020-10-24 15:53 | DS.PDOC ---
Discharge Summary General Date of Admission October 15, 2020 at 15:16 Date of Discharge 10/24/20 Attending Physician: Samia Lacey MD Discharge Summary HISTORY OF PRESENT ILLNESS/HOSPITAL COURSE: Patient is a 70-year-old white male PMH of chronic respiratory failure 2/2 to end stage Copd/emphysema who was admitted on 10/15/20 for acute on chronic hypoxic and hypercarbic respiratory failure 2/2 to left side pneumothorax. He states his acute shortness of breath had been for several day but admits to being SOB constantly at home for the past few years. He gets short of breath just walking around his house. He denies orthopnea or paroxysmal nocturnal dyspnea, chest pain, fevers, chills and has a chronic cough. He had been seen previously by Dr. Ritter in 2019 for a left sided pneumothorax. After admission he was placed on bipap and after chest tube placement showed respiratory improvement. Pulmonary service was consulted. Although improvement with chest tube, he remained hypoxemic at baseline, on 3L: however, still is SOB with activity. He was started on symbicort, spiriva and QID albuterol nebs. Due to protein caloric malnutrition due to only worsening chronic respiratory disease, hospitalist team and pulmonary ( Dr. Torres) discussed hospice with patient, he remained a full code. Small left pneumothorax continued to improve and chest tube clamped 10/22/20 without air leak . It was taken out today on 10/23/20 , repeat imaging done on 10/24/20 showed continued resolution of pneumothorax. The patient cleared OT and did well with PT this afternoon. Will need o/p PT, HH referral prior to discharge. For protein calorie malnutrition likely 2/2 to End stage COPD/emphysema it is recommended to continue with regular diet and ensure supplementation.At time of discharge on 10/24/20 patient had no acute complaints. PAST MEDICAL HISTORY: Chronic back pain. History of alcohol abuse in the remote past, now quit. COPD with emphysema, GOLD Stage IV. Prior history of pneumonia in 2013. Prior hx of pneumothorax 2018 Prior history of tobacco abuse, quit after his pneumonia in 2013. History of stable pulmonary nodules. PAST SURGICAL HISTORY: Left inguinal hernia. Bilateral cataract extractions and implantations. Hx of left chest tube placement 2018 SOCIAL HX: Smoked 1 to 1 1/2 packs of cigarettes per day, quit in 2013, >40 yrs. Denies alcohol use, illicit drug use. Lives with mother. Full Code. FAMILY HX: Father with heart disease, notably no family history of lung disease or lung cancer. DISCHARGE MEDICATIONS: Please see below PHYSICAL EXAM: General: Thin, cachectic, NAD resting in bedside chair, SOB with conversation Head: bitemporal wasting, NCAT EENT: anicteric, no injection, nasal canula in place, MMM Pulm: Diminished sounds b/l, prolonged expiratory phase, barrel chest . No crackles, no wheezing, is winded with speaking a few words and that is his recent baseline. Left side chest tube taken out, bandages in place Cardiac: RRR, no m/r/g Abd: scaphoid, soft, normoactive, NTND Ext: no LE edema, WWP Psych: AOx3 Labs: Please see below IMAGING: CXR 10/24/20: Chronic COPD/emphysematous changes. Previous left pneumothorax resolved. CXR 10/23/20: 1. Left chest tube in stable position. Left pneumothorax essentially resolved. 2. Stable diffuse chronic changes. CXR 10/22/20: Near complete resolution to the known left apical pneumothorax. No new acute process identified. Assessment: 65-year-old M with advanced obstructive airway disease (Gold classification #4) with predominant emphysema, chronic hypoxemic respiratory failure on home 3L NC, with high degree of debility at baseline with activity limited by exertional dyspnea with poor pulmonary reserve, who presented to the ED in respiratory distress and was found to be acute hypoxic hypercarbic respiratory failure with a small left pneumothorax. PLAN: Hypercarbic hypoxemic respiratory failure likely multifactorial 2/2 to End Stage COPD with emphysema, small left pneumothorax (resolve) -Hypoxemia at baseline, on 3L: however, still is SOB with activity but this is also baseline. -D/c home today with symbicort, spiriva and QID albuterol nebs End stage COPD/emphysema -Treatment as noted above with symbicort, spiriva, PRN albuterol nebs and supplemental O2 -Declined hospice at this time. Both Dr. Torres and Dr. Sherman, prior hospitalist, discussed this option with him. -Cleared OT and did well with PT this afternoon. O/p PT, HH referral on discharge -Pulmonary following as o/p Small left pneumothorax- resolved -Chest tube clamped 10/22/20 without air leak and improved imaging today, chest tube taken out today on 10/23/20 -Repeat imaging on 10/24/20, Ptx still gone -Chest tube was being managed by Dr. Ritter, pulmonology (Dr. Torres) Protein calorie malnutrition likely / to End stage COPD/emphysema -c/w regular diet and ensure supplementation. HTN: -Continue amlodipine 10mg daily DISPOSITION: D/c home with referral for o/p PT/OT, Pulmonary and PCP follow up TIME SPENT ON DISCHARGE: 35 minutes. Vital Signs/I&Os Vital Signs Date Time Temp Pulse Resp B/P (MAP) Pulse Ox O2 Delivery O2 Flow Rate FiO2 10/24/20 12:00 97.3 77 18 129/68 (88) 100 Nasal Cannula 3.0 I&O- Last 24 Hours up to 6 AM 10/24/20 06:00 Intake Total 600 ml Output Total 1375 ml Balance -775 ml Laboratory Data Labs 24H Laboratory Tests 2 10/24/20 04:25: Nucleated Red Blood Cells % (auto) 0.0, Anion Gap 4L, Glomerular Filtration Rate > 60.0, Calcium Level 8.7L, Magnesium Level 2.2, Total Bilirubin 0.3, Aspartate Amino Transf (AST/SGOT) 19, Alanine Aminotransferase (ALT/SGPT) 31, Alkaline Phosphatase 128H, Total Protein 5.9L, Albumin 2.9L, Albumin/Globulin Ratio 1.0 CBC/BMP Laboratory Tests 10/24/20 04:25 Microbiology Microbiology 10/15/20 Blood Culture - Final, Complete NO GROWTH AFTER 5 DAYS 10/15/20 Blood Culture - Final, Complete NO GROWTH AFTER 5 DAYS Discharge Medications Scheduled Amlodipine Besylate (Amlodipine Besylate) 10 Mg Tablet, 10 MG PO DAILY Budesonide/Formoterol (Symbicort 160-4.5 Mcg Inhaler) 6 Gm Hfa.aer.ad, 2 PUFF INH BID, (Reported) Gabapentin (Gabapentin) 400 Mg Capsule, 400 MG PO TID, (Reported) Sod Phos Di, Bremer/K Phos Bremer (Phospha 250 Neutral Tablet) 250 Mg Tablet, 250 MG PO TID Tiotropium [place] Monohydrate (Spiriva) 18 Mcg Cap.w.dev, 1 INHALATION INH DAILY@08 Umeclidinium [place] (Incruse Ellipta) 62.5 Mcg Blst.w.dev, 1 PUFF INH DAILY, (Reported) Scheduled PRN Acetaminophen (Acetaminophen) 325 Mg Tablet, 650 MG PO Q6HP PRN for PAIN OR FEVER Albuterol Sulfate (Albuterol Sulfate Hfa) 8.5 Gm Hfa.aer.ad, 2 PUFFS INH QID PRN for SHORTNESS OF BREATH, (Reported) Miscellaneous Medications [Patient Comment] , (Reported) MED LIST OBTAINED FROM EXT MED HX Allergies Coded Allergies: No Known Allergies (Unverified , 05/07/19) Samia Lacey MD Oct 24, 2020 15:53
== END 2020-10-24 13:07 | disposition home health service (06) | DRG 199 ==
LOC: M ED 13:58 → UNDOADMIN 15:09 → M ICU 15:09 → EDBD 15:16 → ENRESERV 15:30 → M PCU 10-19 14:10
PROVIDERS: ADMIT Internal Medicine Pulmonary Disease; ATTEND Internal Medicine Pulmonary Disease
PROC: 0W9B30Z Drainage of Left Pleural Cavity with Drainage Device, Percutaneous Approach (ICD-10-PCS; principal; 2020-10-15)
DX: J93.0 Spontaneous tension pneumothorax (principal); J96.21 Acute and chronic respiratory failure with hypoxia; J96.22 Acute and chronic respiratory failure with hypercapnia; J86.0 Pyothorax with fistula; E46 Unspecified protein-calorie malnutrition; R64 Cachexia; E87.2 Acidosis; J43.9 Emphysema, unspecified; I10 Essential (primary) hypertension; Z87.891 Personal history of nicotine dependence; R91.8 Other nonspecific abnormal finding of lung field; Z79.899 Other long term (current) drug therapy; Z66 Do not resuscitate; E83.39 Other disorders of phosphorus metabolism

== ENCOUNTER → 2020-11-18 | Outpatient (CLI) | payer MEDICARE ==
[~2020-11-18] MED LIST changes: +ALBU8.5H INH; +AMLO1TAB25 PO; +PATIENT COMMENT; +PHOS1TAB3 PO
--- NOTE | 2020-11-18 11:21 | REP ---
INDICATION: OTHER PNEUMOTHORAX. COMPARISON: Comparison chest x-ray October 24, 2020. TECHNIQUE: Two views.. FINDINGS: There is marked hyperaeration consistent with COPD. There is inversion of the diaphragms and increase in the AP diameter of the chest. The heart is not enlarged. There is no visible pneumothorax or hydrothorax. There are healed or healing rib fractures noted bilaterally. There is some interstitial fibrosis in the bases, right greater than left unchanged. Thoracic aorta is normal in caliber. Pulmonary vasculature is not increased. IMPRESSION: Marked hyperinflation consistent with COPD. Bilateral healed or healing rib fractures. No evidence of pneumothorax.. <Electronically signed by Damon Wilson > 11/18/20 [id number]
== END ==
LOC: M PLAIMG 09:55
PROVIDERS: ATTEND Thoracic Surgery (Cardiothoracic Vascular Surgery)
DX: J93.83 Other pneumothorax (principal); J43.9 Emphysema, unspecified

== ENCOUNTER 2021-05-17 20:31 | Emergency (ER) | payer MEDICARE ==
[2021-05-17] MEDS ORDERED: EPINEPHrine 1MG/10ML SYRINGE 1.5IN ONE (20:32)
[2021-05-17] MEDS ORDERED: SODIUM BICARBONATE 8.4% INJ 50 ML SYRINGE ONE (20:32)
[2021-05-17] MEDS ORDERED: SODIUM BICARBONATE 4.2% INJ 10ML SYRINGE ONE (20:32)
[2021-05-17] MEDS ORDERED: SODIUM BICARBONATE 8.4% INJ 50 ML SYRINGE IV STA ×2 (21:00)
[2021-05-17] MEDS ORDERED: EPINEPHrine 1MG/10ML SYRINGE 1.5IN IV STA ×3 (21:00)
== END 2021-05-18 00:52 | disposition expired ==
LOC: M ED 20:31
DX: I46.9 Cardiac arrest, cause unspecified (principal); J96.01 Acute respiratory failure with hypoxia; I10 Essential (primary) hypertension; J44.9 Chronic obstructive pulmonary disease, unspecified; Z87.891 Personal history of nicotine dependence; Z79.899 Other long term (current) drug therapy